=== PATIENT | male | born 1955 | race Asian ===

== ENCOUNTER → 2017-10-24 | Outpatient (CLI) | payer OTHER ==
[~2017-10-24] MED LIST: BECL0.072 INH; BNC20 PO; GADAVIST IV PRN; LEVO75TA PO; LYR/50 PO; MISO1TAB10 PO; SUMA100T16 PO; TAMS0.4C59 PO
--- NOTE | 2017-10-24 08:12 | DIAGNOSTIC IMAGING REPORT ---
MRI ABDOMEN COMBO CLINICAL HISTORY: ABD PAIN,WEIGHT LOSS TECHNIQUE: Imaging was performed prior to and following IV contrast injection. COMPARISON STUDY: CT scan dated 03/04/2015 FINDINGS: Imaging was performed in the axial and coronal planes before and after the administration of 6.5 cc of intravenous Gadavist. No hepatic masses are visualized. No gallbladder abnormalities are evident. The spleen is normal in size. No splenic masses are visualized. No pancreatic masses are visualized. No adrenal masses are visualized. No renal masses are visualized. There is no evidence of abdominal aortic dilatation. There is no evidence of pathologic upper abdominal lymphadenopathy. There is no ductal dilatation. IMPRESSION: Normal study. Electronically signed by: Angel Sun M.D. 10/24/2017 8:10 AM Dictated Date/Time: 10/24/2017 8:04 AM
== END | disposition home or self-care (01) ==
LOC: C.MRI 07:10
PROVIDERS: ATTEND Family Medicine
DX: R10.9 Unspecified abdominal pain (principal); R63.4 Abnormal weight loss

== ENCOUNTER → 2017-11-12 | Outpatient (CLI) | payer OTHER ==
[~2017-11-12] MED LIST changes: -GADAVIST IV PRN
--- NOTE | 2017-11-12 09:16 | DIAGNOSTIC IMAGING REPORT ---
ABDOMINAL AORTIC ULTRASOUND CLINICAL HISTORY: AORTIC BRUIT COMPARISON STUDY: Abdominal MRI 10/24/2017. FINDINGS: The abdominal aorta is normal in course and caliber. The proximal aorta measures 2.1 cm, mid aorta 1.8 cm, distal aorta 1.8 cm. Iliac arteries are normal in caliber. IMPRESSION: No evidence for an abdominal aortic aneurysm. Electronically signed by: Zelalem Urena M.D. 11/12/2017 9:15 AM Dictated Date/Time: 11/12/2017 9:13 AM
== END | disposition home or self-care (01) ==
LOC: C.ULTR 08:37
PROVIDERS: ATTEND Family Medicine
DX: R09.89 Other specified symptoms and signs involving the circulatory and respiratory systems (principal)

== ENCOUNTER 2022-06-07 06:42 | Observation (INO) ==
--- NOTE | 2022-05-23 10:50 | PAT Medication Instructions ---
Medication Instructions Date of Service May 23, 2022 Home Medications Medication Instructions Recorded fluticasone propionate 50 1 spray intranasal BID PRN allergy 03/07/21 mcg/actuation nasal symptoms 30 days #15.8 mL spray,suspension (Flonase Allergy Relief) Latisha Walker #1 ea 05/09/22 fluticasone propionate 50 mcg/actuation nasal spray,suspension (Flonase Allergy Relief) 1 spray intranasal BID PRN levothyroxine 75 mcg tablet (Synthroid) 75 mcg PO QAM pregabalin 50 mg capsule (Lyrica) 50 mg PO BID albuterol 90 mcg/actuation aerosol inhaler 90 mcg inhalation QID PRN Shortness Of Breath Or Wheezing beclomethasone dipropionate 40 mcg/actuation HFA breath activated aerosol (Qvar RediHaler) 1 inh inhalation Q12H PRN finasteride 5 mg tablet 5 mg PO QAM telmisartan 20 mg tablet 20 mg PO QAM DO NOT take the morning of surgery telmisartan 20 mg tablet 20 mg PO QAM Take morning of surgery With a small sip of water, OTHERWISE NOTHING TO EAT OR DRINK AFTER MIDNIGHT: fluticasone propionate 50 mcg/actuation nasal spray,suspension (Flonase Allergy Relief) 1 spray intranasal BID PRN (if needed) levothyroxine 75 mcg tablet (Synthroid) 75 mcg PO QAM pregabalin 50 mg capsule (Lyrica) 50 mg PO BID albuterol 90 mcg/actuation aerosol inhaler 90 mcg inhalation QID PRN Shortness Of Breath Or Wheezing (use if needed; please bring rescue inhaler with you to hospital day of surgery if possible) beclomethasone dipropionate 40 mcg/actuation HFA breath activated aerosol (Qvar RediHaler) 1 inh inhalation Q12H PRN (if needed) finasteride 5 mg tablet 5 mg PO QAM Take evening before surgery fluticasone propionate 50 mcg/actuation nasal spray,suspension (Flonase Allergy Relief) 1 spray intranasal BID PRN (if needed) pregabalin 50 mg capsule (Lyrica) 50 mg PO BID albuterol 90 mcg/actuation aerosol inhaler 90 mcg inhalation QID PRN Shortness Of Breath Or Wheezing (if needed) beclomethasone dipropionate 40 mcg/actuation HFA breath activated aerosol (Qvar RediHaler) 1 inh inhalation Q12H PRN (if needed) Other Notes If you have any questions please call us at [phone] or [phone] or [phone] or [phone]
--- NOTE | 2022-05-25 09:55 | Anesthesiology Consultation ---
Date of Service May 25, 2022 Assessment & Plan (1) Encounter for pre-operative examination: - rescue inhaler use yesterday and today with higher humidity days per pt. Lungs clear to auscultation. I will call pt prior to surgery to see if he is still requiring rescue inhaler daily. - COVID screening: Per assessment on 05/25/2022: Travel screen negative, no known COVID-19 positive contacts or current COVID-19 related symptoms in past 2 weeks. Pt vaccinated. Surgeon arranging preop COVID testing, scheduled 06/04/2022. Awaiting results. Chart Review Chart Review: Pending: Refer to Additional Notes / Consult section and Patient seen in Pre Admission Testing Teaching & Discussion Pre-Anesthesia Teaching/Discussion Notes: Instructed NPO after midnight before surgery, except medications with 15 cc of water. Medication instructions provided according to the PAT guidelines. History Surgery Operation Date: 06/06/22 07:15 Proposed Procedures p Left Total Knee Arthroplasty - Scott Avilez MD Height/Weight Height: 5 ft 8 in Weight: 61.4 kg Allergies Allergy/AdvReac Type Severity Reaction Status Date / Time oxycodone [From OxyContin] Allergy Mild Headache Verified 05/25/22 14:15 Medications Home Medications Medication Instructions Recorded Confirmed Last Taken fluticasone propionate 50 1 spray intranasal BID PRN allergy 03/07/21 05/25/22 Unknown mcg/actuation nasal symptoms 30 days #15.8 mL spray,suspension (Flonase Allergy Relief) levothyroxine 75 mcg tablet 75 mcg PO QAM 03/07/21 05/25/22 Unknown (Synthroid) pregabalin 50 mg capsule (Lyrica) 50 mg PO BID 03/07/21 05/25/22 Unknown Wheeled Walker #1 ea 05/09/22 05/25/22 Unknown albuterol 90 mcg/actuation aerosol 90 mcg inhalation QID PRN 05/22/22 05/25/22 Unknown inhaler Shortness Of Breath Or Wheezing beclomethasone dipropionate 40 1 inh inhalation Q12H PRN 05/22/22 05/25/22 Unknown mcg/actuation HFA breath activated Shortness Of Breath Or Wheezing aerosol (Qvar RediHaler) finasteride 5 mg tablet 5 mg PO QAM 05/22/22 05/25/22 Unknown telmisartan 20 mg tablet 20 mg PO QAM 05/22/22 05/25/22 Unknown Past Medical History Medical History (Updated 05/25/22 @ 10:12 by Camila Thurman PA-C) Asthma mild, well controlled w/ inhaler-last rescue inhaler use this morning as feels better with use during high humidity days GERD (gastroesophageal reflux disease) diet controlled per pt Hypertension controlled, stable per pt Hypothyroidism Pulsatile tinnitus, right ear Trigeminal neuralgia takes Lyrica Patient denies h/o stroke, seizures, heart attack, heart failure, DM, blood clots or blood transfusions. Exercise / Class Metabolic Activity II 4-5 Yardwork/Stairs/Walk up hill (denies CP or SOB with 1 FOS) Past Family History Family History Denies family history of Hearing loss No family history of adverse response to anesthesia No family history of bleeding disorder Heart disease Allergies Cancer Hypertension Stroke Asthma Past Surgical History Surgical History (Updated 05/25/22 @ 09:53 by Camila Thurman PA-C) H/O neck surgery fusion around C5 per pt 2008- done in [facility] History of esophagogastroduodenoscopy (EGD) S/P arthroscopic knee surgery left S/P colonoscopy S/P inguinal hernia repair S/P sinus surgery Past Anesthesia History No Hx of Anesthesia Complications and No Family Hx of Anesthesia Complications History of PONV No Hx of PONV and No Hx of Motion Sickness Social History Smoking Status: Never smoker Do You Dip or Chew Tobacco: No Hx Alcohol Use: Yes alcohol intake frequency: a few times a week Hx Substance Use: No substance use type: does not use Review of Systems Patient denies chest pain, dyspnea on exertion, snoring, witnessed apneas, fever, chills, cough, wheezing, or palpitations. Physical Exam Vital Signs Vitals BP 152/82 P 61 TEMP 98.3 SP02 99% on RA RESP 17 Physical Full cervical extension range of motion without pain TMD 3.5 finger breadths Mallampati Score 1 Dentition: intact, several crowns; pt unsure if any implants or bridges; denies chipped or loose teeth Lungs: normal respiratory effort. Clear throughout to auscultation, no adventitious breath sounds Cardiac: regular rate and rhythm, no murmurs noted Carotid arteries: negative bruit bilat Lab Results Anesthesia Preop Results Results Anesthesia Widget: WBC 4.55 K/ul (4.8-10.8) L 05/25/22 Hgb 13.3 g/dl (14.0-18.0) L 05/25/22 Hct 40.2 % (40.1-51.0) 05/25/22 Plt 182 K/uL (130-400) 05/25/22 Na 139 mmol/L (136-145) 05/25/22 K 4.3 mmol/L (3.5-5.1) 05/25/22 Cl 104 mmol/L (98-107) 05/25/22 CO2 30 mmol/L (21-32) 05/25/22 BUN 14 mg/dl (6-23) 05/25/22 Creat 0.91 mg/dl (0.6-1.4) 05/25/22 Glucose Level 98 mg/dl (70-99(Fasting)) 05/25/22 PT 11.3 Seconds (9.0-12.0) 05/25/22 PTT 29.9 Seconds (21.0-31.0) 05/25/22 INR 1.1 (0.9-1.1) 05/25/22 Blood Type B Positive 05/25/22 Antibody Screen NEGATIVE 05/25/22 Testing Electrocardiogram Date: 05/25/22 Sinus bradycardia with 1st degree AV block, rate 57 bpm Chest X-Ray Date: 05/25/22 No lines and tubes are seen. The cardiomediastinal silhouette is normal. The lungs are clear. No evidence of pleural effusion or pneumothorax. IMPRESSION: No acute chest disease.
[~2022-06-07 06:42] MED LIST changes: +ACETAMINOPHEN 500 MG TAB PO SCH; -BECL0.072 INH; -BNC20 PO; +BUPIVACAINE 0.25% 30 ML VIAL ONE; +BUPIVACAINE 0.5 % 5 MG/1 ML PF 10ML VIAL ONE; +BUPIVACAINE LIPOSOME/PF 266 MG, BUPIVACAINE/EPINEPHRINE 50 ML, SODIUM CHLORIDE 0.9% 30 ... INFIL SCH; +CeleBREX 200 MG CAP PO SCH; +DEXAMETHASONE SOD INJ 4 MG/ML VIAL ONE; +EPINEPHrine INJ 1 MG/ML AMP ONE; +FAMOTIDINE 20 MG TAB PO SCH; -LEVO75TA PO; +LR 500ML BOLUS, THEN 15ML/HR IV SCH; +LR 60ML/HR IV SCH; -LYR/50 PO; +METOCLOPRAMIDE HCL 10 MG TABLET PO SCH; -MISO1TAB10 PO; -SUMA100T16 PO; +Scopolamine 1 MG TDSY TD SCH; +Scopolamine CHECK PATCH PLACEMENT SCH; -TAMS0.4C59 PO; +TRANEXAMIC ACID 1,000 MG **IV Intra-op IV SCH; +ceFAZolin 2000MG 2,000 MG/15 ML SYR IV SCH
--- NOTE | 2022-06-07 06:57 | History & Physical Bridge Note ---
Date of Service June 07, 2022 History & Physical Bridge Note I have examined the patient, reviewed the History & Physical and in the interval since the performance of the History & Physical I have noted the following changes of clinical significance: no changes noted
[2022-06-07] MEDS ORDERED: fentaNYL citrate 100 MCG/2 ML VIAL ONE (07:23)
[2022-06-07] MEDS ORDERED: MIDAZOLAM HCL 1 MG/ML 2ML VIAL ONE (07:23)
[2022-06-07] MEDS ORDERED: PROPOFOL IV EMULSION 10 MG/ML 20 ML VIAL IV ONE ×3 (07:23→09:47)
[2022-06-07] MEDS ORDERED: SODIUM CHLORIDE 0.9% PF 50 ML VIAL ONE (08:57)
[2022-06-07] MEDS ORDERED: BUPIVACAINE/EPINEPHRINE 0.25% 1:200,000 30 ML VIAL ONE (08:57)
[2022-06-07] MEDS ORDERED: BUPIVACAINE LIPOSOME 1.3% 266 MG/20 ML VIAL ONE (08:57)
[2022-06-07] MEDS ORDERED: ePHEDrine sulfate 50 MG/ML SYR ONE (09:39)
[2022-06-07] MEDS ORDERED: fentaNYL citrate 100 MCG/2 ML VIAL IV PRN (09:45)
[2022-06-07] MEDS ORDERED: ONDANSETRON INJ 2 MG/ML 2 ML VIAL IV PRN ×2 (09:45→12:35)
[2022-06-07] MEDS ORDERED: ePHEDrine sulfate 50 MG/ML AMP IV PRN (09:45)
[2022-06-07] MEDS ORDERED: ATROPINE SULFATE 0.1 MG/ML 10ML SYR IV PRN (09:45)
[2022-06-07] MEDS ORDERED: KETOROLAC 30 MG/ML VIAL ONE (11:00)
--- NOTE | 2022-06-07 11:17 | Operative Report ---
PG Post Operative Report Pre & Post Diagnosis Operation Date: 06/07/22 09:10 Pre-Op Diagnosis: Left Knee Advanced Degenerative Joint Disease Post-Op Diagnosis: Left Knee Advanced Degenerative Joint Disease I identified the patient and participated in the time-out.: Yes Procedure Operation Date: 06/07/22 09:10 Actual Procedures p Left Total Knee Arthroplasty(Left) - Scott Avilez MD Surgeon Scott Avilez MD Band Salvager Reagan Lyon PA-C Estimated Blood Loss 50 Findings Consistent with Post-Op Diagnosis Operative findings were advanced left knee DJD. 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 A fixed varus deformity to his knee. Tibiofemoral subluxation. Chronic ACL deficiency. Specimens Left knee sent for pathology. Drains None Anesthesia Type Spinal MAC Complications none Disposition Accompanied Patient To Recovery: No Indications Patient is a 67-year-old gentleman with a long history of left knee pain discomfort is gotten worse over time. He has a history of knee arthroscopy done in 1998. Over time he developed increased pain discomfort and deformity of his knee. He failed conservative measures and elected proceed with total knee arthroplasty. Description of Procedure Operative implants consist of: 1 Biomet Vanguard size 65 left posterior stabilized femoral component. 2. Biomet size 71 tibial tray. 3. 10 mm posterior stabilized polyethylene insert. 4. 31 x 8 all Paller patella. The patient was taken to the operating, identified, placed on the operating table supine position protectors were properly padded. IV antibiotics tried by anesthesia team. A spinal anesthetic and abductor canal block in the holding area. Allan catheter was placed in sterile fashion. Left factor was then placed in left lower extremities and prepped and draped in usual sterile fashion. The left leg was elevated exsanguinated with the use of an Esmarch in terms playset 3 mmHg. An anterior posterior left knee was then performed to longitudinal incision centered over the patella. Sharp dissection was carried through subcutaneous tissue down the extensor mechanism. A medial parapatellar arthrotomy incision was made. Some subperiosteal dissection was carried out medially. The fat pad was resected from Neath patella tendon. The lateral patellofemoral ligament was released. Patella subluxated laterally and the knee was flexed. The osteophyte taken off distal femur. The ACL and PCL were then released from distal femur and the tibia subluxated anteriorly. The external treatment line jig was then placed in the anterior face of the tibia and adjusted 16 mm medially. Proximal tibial cut was made essentially flush with the most deficient aspect of the posterior medial tibial plateau. The medial and posterior medial osteophytes removed. The tibia sized to a size 71. Attention drawn the femur. The distal femur during the sharp drop with intramedullary canal was suction. A left 6 degree valgus cutting guide was placed. The distal femoral cutting block was pinned in place. Distal femoral cut was made to take an additional 3 mm of bone off distal femur. The femur was then sized to a size 65. The AP cutting block was pinned parallel to the epicondylar axis which was 6 degrees of external rotation. The anterior cut, anterior chamfer, posterior cut, posterior chamfer cuts were made. The box cutting guide was placed in just slight the box cut was made. The knee was flexed. The remnants of the medial and lateral menisci were excised. The osteophytes were taken off the posterior aspect of femur. A trial femoral component was placed. Tibial tray was pinned in maximum external rotation and the drill and stem punch were used to create defect in proximal tibia for the tibial tray. The knee was then trialed and the 10 mm insert fit most appropriately. Attention drawn the patella. The patella was cleaned of all soft tissues. Patella thickness measured 23 mm in thickness and was cut down to 14. Was sized to a size 31 patella. The lug holes were drilled for the 31 patella. The lateral osteophyte was removed. Patella button was placed. Knee was taken through range of motion and the patella tracked nicely with no thumbs test. Attention drawn to place the permanent components. Nupathe all trial components were removed. Bone plug was placed into the distal femur limit blood loss. A double batch Palacos G cement was mixed. A Biomet Vanguard size 65 left posterior stabilized femoral compo nent, size 71 tibial tray, 10 mm posterior stabilized polyethylene insert, and a 31 x 8 all Paller patella then cemented in place. Knee was brought out into full extension total cement hardened. Final cement check was then performed. Pericapsular tissues were injected with total 100 cc of combination of 20 cc of Exparel, 30 cc normal saline, 50 cc of quarter percent Marcaine with epinephrine. Patient did receive 1 g of tranexamic acid. The tourniquet was then let down for final turn time of 61 minutes. Hemostasis surgeons electrocautery. Extensor mechanism then closed with combination 1 PDS suture #1 Vicryl suture in [id number] fashion. Extensor mechanism checked found to be intact with subcutaneous tissue then closed with 2 Dexon suture in a buried erupted fashion skin was closed skin mark. Leg was then cleaned and dried and sterile dressed with Xeroform, 4 x 4's, sterile cast padding, Suhail bandage were applied. Patient then transferred to the recovery room in stable condition. The patient tolerated the procedure well and there were no complications. Reagan Lyon, my physician purchasing administrative assistant, was present for the entire procedure. His assistance was essential and required for appropriate patient positioning, prepping and draping, surgical exposure, performing the technical details of the operation, placement the implants, closure of the wound, and placement of the sterile bandage. I attest to the content of the Intraoperative Record and any orders documented therein. Any exceptions are noted below.
--- NOTE | 2022-06-07 11:35 | XRay Report ---
LEFT KNEE 2 VIEWS History: Left total knee arthroplasty. Degenerative arthritis. Postop. FINDINGS: The patient is status post a left total knee arthroplasty. The hardware is intact. No fract ure or dislocation. Skin mark are in place. IMPRESSION: Left total knee arthroplasty. No evidence for hardware complication. ACT 112: Negative or not required by law. Electronically signed by: Zelalem Urena M.D. 06/07/2022 11:33 AM
[2022-06-07] MEDS ORDERED: bisacodyL 10 MG SUPP PR PRN (12:35)
[2022-06-07] MEDS ORDERED: FLUTICASONE PROPIONATE NA SPR 16 GM BTL NAE PRN (12:35)
[2022-06-07] MEDS ORDERED: MAGNESIUM HYDROXIDE SUSP 30 ML UDC PO PRN (12:35)
[2022-06-07] MEDS ORDERED: HYDROmorphone INJ 0.5 MG/0.5 ML SYR IV PRN (12:35)
[2022-06-07] MEDS ORDERED: ALUMINUM/MAGNESIUM SUSP 30 ML UDC PO PRN (12:35)
[2022-06-07] MEDS ORDERED: HYDROmorphone HCL 2 MG TAB PO PRN (12:35)
[2022-06-07] MEDS ORDERED: NALOXONE HCL 0.4 MG/1 ML VIAL/CARP IV PRN (12:35)
[2022-06-07] MEDS ORDERED: METOCLOPRAMIDE HCL INJ 5 MG/ML 2 ML VIAL IV PRN (12:35)
[2022-06-07] MEDS ORDERED: ALBUTEROL HFA 8 GM INHALER INH PRN (12:48)
--- NOTE | 2022-06-07 13:13 | Anesthesiology Progress Note ---
Date of Service June 07, 2022 Anesthesia Post Procedure Vital Signs Vital Signs: Temp Pulse Resp BP Pulse Ox O2 Del Method O2 Flow Rate 06/07/22 13:00 47 L 13 115/63 99 Room Air 06/07/22 12:45 47 L 15 117/64 98 Room Air 06/07/22 12:30 45 L 20 116/61 99 Room Air 06/07/22 12:20 48 L 16 117/63 99 Room Air 06/07/22 12:10 36.3 C L 48 L 14 120/62 98 Room Air 06/07/22 12:00 52 L 20 122/68 98 Room Air 06/07/22 11:50 54 L 12 114/58 L 100 Room Air 06/07/22 11:40 54 L 13 116/64 100 Oxymask 3 06/07/22 11:30 53 L 15 112/66 100 Oxymask 3 06/07/22 11:20 53 L 14 117/61 100 Oxymask 4 06/07/22 11:10 36.0 C L 56 L 14 113/61 100 Oxymask 5 06/07/22 07:17 36.8 C 63 22 144/95 H 99 Room Air Pain Intensity Left Knee: Pain Intensity: 0 Transfer of Care Handoff Completed per policy Notes Mental Status: alert / awake / arousable Patient Amnestic to Procedure: Yes Nausea / Vomiting: adequately controlled Pain: adequately controlled Airway Patency, RR, SpO2: stable & adequate BP & HR: stable & adequate Hydration State: stable & adequate Neuraxial Anesthesia: was administered and sensory block is resolving Anesthetic Complications: no major complications apparent and Pt Satisfied with anesthetic care
[2022-06-07] MEDS: Scopolamine CHECK PATCH PLACEMENT SCH ×3 (16:02→21:33)
[2022-06-07] MEDS: SODIUM CHLORIDE 0.9% 1000ML 1,000 ML IV SCH (16:05)
[2022-06-07] MEDS ORDERED: TRANEXAMIC ACID / 0.7% NACL 1,000 MG/100 ML BAG IV SCH (17:30)
[2022-06-07] MEDS: ACETAMINOPHEN 500 MG TAB PO SCH ×2 (17:45→23:59)
[2022-06-07] MEDS: ASCORBIC ACID 500 MG TAB PO SCH (17:47)
[2022-06-07] MEDS: KETOROLAC TROMETHAMINE 15 MG/ML VIAL IV SCH (17:48)
[2022-06-07] MEDS: ceFAZolin 1000MG 1,000 MG/7.5 ML SYR IV SCH (18:27)
[2022-06-07] MEDS ORDERED: SENNA 8.6 MG TAB PO SCH (21:00)
[2022-06-07] MEDS: ASPIRIN 81 MG ECTAB PO SCH (21:28)
[2022-06-07] MEDS: DOCUSATE SODIUM 100 MG CAP PO SCH (21:28)
[2022-06-07] MEDS: DOCUSATE SODIUM/SENNA 50/8.6MG TAB PO SCH (21:28)
[2022-06-07] MEDS: PREGABALIN 50 MG CAP PO SCH (21:29)
[2022-06-07] MEDS: TAPENTADOL HCL ER 50 MG TABCR PO SCH (21:29)
[2022-06-08] MEDS: KETOROLAC TROMETHAMINE 15 MG/ML VIAL IV SCH ×3 (00:01→11:56)
[2022-06-08] MEDS: ceFAZolin 1000MG 1,000 MG/7.5 ML SYR IV SCH (01:46)
[2022-06-08] MEDS: SODIUM CHLORIDE 0.9% 1000ML 1,000 ML IV SCH (02:51)
[2022-06-08] MEDS ORDERED: LEVOTHYROXINE SODIUM 75 MCG TABLET PO SCH (06:30)
[2022-06-08 07:14] LABS: Hematocrit (blood only) 34.3 % (40.1-51.0); Hemoglobin 11.3 g/dl (14.0-18.0); Mean Corpuscular Hemoglobin 28.9 pg (25.0-34.0); Mean Corpuscular Hgb Conc 32.9 g/dL (32.0-36.0); Mean Corpuscular Volume 87.7 fL (80.0-100.0); RDW Coefficient of Variation 13.2 % (11.5-14.5); RDW Standard Deviation 42.1 fL (36.4-46.3); Red Blood Count 3.91 M/uL (4.63-6.08); White Blood Count 13.61 K/ul (4.8-10.8)
[2022-06-08 07:32] VITALS: BP 114/69; TEMP 97.7; O2SAT 100
[2022-06-08 07:44] LABS: Calcium 8.7 mg/dl (8.5-10.1); Creatinine Clr Calc Pharmacy 72.5 ml/min; Est GFR (African American) 104.7 ml/min; Est GFR (Non-African American) 90.4 ml/min; Potassium 3.9 mmol/L (3.5-5.1)
[2022-06-08 07:58] LABS: Mean Platelet Volume 13.1 fL (9.4-12.4); Platelet Count 152 K/uL (130-400)
--- NOTE | 2022-06-08 07:59 | Progress Notes ---
DATE OF SERVICE: 06/08/2022. SUBJECTIVE: A 67-year-old gentleman, postoperative day 1 from a left knee replacement. He is doing pretty well. He has got a lot of questions. Really had a pretty good night pain melgar. No chest elodia n or shortness of breath. Not feeling dizzy or lightheaded. OBJECTIVE: VITAL SIGNS: Temperature 36.6. Vital signs are stable. PHYSICAL EXAMINATION: GENERAL: Shows a pleasant middle-aged male. He is sitting up in bed, looks pretty comfortable. LUNGS: Clear to auscultation. HEART: Regular rate and rhythm. ABDOMEN: Soft, nontender, nondistended. EXTREMITIES: Grossly neurovascularly intact except as follows: Examination of the left leg reveals the leg to be well aligned. Dressing is clean, dry and intact. He can dorsiflex and plantarflex his foot appropriately. He is neurologically intact. LABORATORY DATA: Hemoglobin 11.3. Hematocrit 34.3. White cell count 13.61. Electrolytes are pendi ng. ASSESSMENT: A 67-year-old gentleman, postoperative day 1 from left knee replacement, doing pretty we ll. Pain is controlled. I answered a bunch of questions from this morning. PLAN: 1. DVT prophylaxis includes thigh-high TEDs, SCDs, and aspirin twice a day. 2. PT, OT, weightbear as tolerated. Left total knee protocol. 3. Pain control, doing okay with current pain regimen. Will continue using Dilaudid, Tylenol and tr amadol. 4. Disposition: Plan to discharge to home with some home health once adequately recovered and medic ally stable. Job ID: [id number]
[2022-06-08] MEDS ORDERED: dexAMETHasone 10 MG in SYRINGE 0 ML IV SCH (08:00)
[2022-06-08] MEDS: ASPIRIN 81 MG ECTAB PO SCH (08:06)
[2022-06-08] MEDS: ACETAMINOPHEN 500 MG TAB PO SCH (08:07)
[2022-06-08] MEDS: ASCORBIC ACID 500 MG TAB PO SCH (08:07)
[2022-06-08] MEDS: DOCUSATE SODIUM/SENNA 50/8.6MG TAB PO SCH (08:08)
[2022-06-08] MEDS: Scopolamine CHECK PATCH PLACEMENT SCH (08:08)
[2022-06-08] MEDS: DOCUSATE SODIUM 100 MG CAP PO SCH (08:08)
[2022-06-08] MEDS: PREGABALIN 50 MG CAP PO SCH (08:10)
[2022-06-08] MEDS: TAPENTADOL HCL ER 50 MG TABCR PO SCH (08:11)
[2022-06-08] MEDS ORDERED: TAMSULOSIN HCL 0.4 MG CAP PO SCH (09:00)
[2022-06-08] MEDS ORDERED: TELMISARTAN 20 MG TAB PO SCH (09:00)
[2022-06-08] MEDS ORDERED: MULTIVITAMIN TAB PO SCH (09:00)
[2022-06-08] MEDS ORDERED: MONTELUKAST SODIUM 10 MG TABLET PO SCH (09:00)
[2022-06-08] MEDS ORDERED: FLUTICASONE FUROATE 100MCG 14 PUFFS/INHALER INH PRN (09:00)
[2022-06-08] MEDS ORDERED: FINASTERIDE 5 MG TAB PO SCH (09:00)
[2022-06-08 11:59] VITALS: PULSE 53
== END 2022-06-08 15:49 | disposition home health service (06) ==
LOC: ASU 06:42 → PACUINP 06:42 → 3E 15:43
DX: Z79.899 Other long term (current) drug therapy; Z79.82 Long term (current) use of aspirin; Z88.5 Allergy status to narcotic agent; M17.12 Unilateral primary osteoarthritis, left knee

== ENCOUNTER 2025-02-02 06:29 | Inpatient (IN) ==
--- NOTE | 2025-01-13 14:10 | PAT Medication Instructions ---
Medication Instructions Date of Service January 13, 2025 Home Medications Medication Instructions Recorded fluticasone propionate 50 1 spray intranasal BID PRN allergy 03/07/21 mcg/actuation nasal symptoms 30 days #15.8 mL spray,suspension (Flonase Allergy Relief) albuterol sulfate 90 mcg/actuation 1 inh inhalation QID PRN shortness 09/02/23 aerosol inhaler of breath or wheezing #8.5 grams sumatriptan succinate 100 mg tablet 100 mg PO .twice daily PRN 12/02/23 migraine headache #10 tabs finasteride 5 mg tablet (Proscar) 5 mg PO QAM #90 tabs 02/01/24 beclomethasone dipropionate 40 1 inh inhalation Q12H PRN 03/11/24 mcg/actuation HFA breath activated Shortness Of Breath Or Wheezing #1 aerosol (Qvar RediHaler) inhaler pregabalin 50 mg capsule (Lyrica) 50 mg PO BID #90 caps 09/17/24 lorazepam 0.5 mg tablet 0.5 mg PO HS PRN sleep #30 tabs 09/28/24 levothyroxine 75 mcg tablet 75 mcg PO QAM #90 tabs 12/29/24 (Synthroid) fluticasone propionate 50 mcg/actuation nasal spray,suspension (Flonase Allergy Relief) 1 spray intranasal BID PRN allergy symptoms albuterol sulfate 90 mcg/actuation aerosol inhaler 1 inh inhalation QID PRN shortness of breath or wheezing sumatriptan succinate 100 mg tablet 100 mg PO .twice daily PRN migraine headache finasteride 5 mg tablet (Proscar) 5 mg PO QAM beclomethasone dipropionate 40 mcg/actuation HFA breath activated aerosol (Qvar RediHaler) 1 inh inhalation Q12H PRN Shortness Of Breath Or Wheezing albuterol sulfate 2.5 mg/3 mL (0.083 %) solution for nebulization 2.5 mg inhalation Q6H PRN SOB pregabalin 50 mg capsule (Lyrica) 50 mg PO BID lorazepam 0.5 mg tablet 0.5 mg PO HS PRN sleep aspirin 81 mg tablet,delayed release (Adult Low Dose Aspirin) 81 mg PO QPM telmisartan 20 mg tablet (Micardis) 10 mg PO QAM levothyroxine 75 mcg tablet (Synthroid) 75 mcg PO QAM multivitamin 1 tab PO QAM pantoprazole 40 mg tablet,delayed release 40 mg PO UD Continue as directed pantoprazole 40 mg tablet,delayed release 40 mg PO UD (if you restart taking prior to surgery) ASK your prescriber and surgeon aspirin 81 mg tablet,delayed release (Adult Low Dose Aspirin) 81 mg PO QPM DO NOT take the morning of surgery telmisartan 20 mg tablet (Micardis) 10 mg PO QAM multivitamin 1 tab PO QAM Take morning of surgery With a small sip of water, OTHERWISE NOTHING TO EAT OR DRINK AFTER MIDNIGHT: fluticasone propionate 50 mcg/actuation nasal spray,suspension (Flonase Allergy Relief) 1 spray intranasal BID PRN allergy symptoms (if needed) albuterol sulfate 90 mcg/actuation aerosol inhaler 1 inh inhalation QID PRN shortness of breath or wheezing (use if needed; please bring with you to hospital day of surgery if possible) sumatriptan succinate 100 mg tablet 100 mg PO .twice daily PRN migraine headache (if needed) finasteride 5 mg tablet (Proscar) 5 mg PO QAM beclomethasone dipropionate 40 mcg/actuation HFA breath activated aerosol (Qvar RediHaler) 1 inh inhalation Q12H PRN Shortness Of Breath Or Wheezing (if needed) albuterol sulfate 2.5 mg/3 mL (0.083 %) solution for nebulization 2.5 mg inhalation Q6H PRN SOB (if needed) pregabalin 50 mg capsule (Lyrica) 50 mg PO BID levothyroxine 75 mcg tablet (Synthroid) 75 mcg PO QAM Take evening before surgery fluticasone propionate 50 mcg/actuation nasal spray,suspension (Flonase Allergy Relief) 1 spray intranasal BID PRN allergy symptoms (if needed) albuterol sulfate 90 mcg/actuation aerosol inhaler 1 inh inhalation QID PRN shortness of breath or wheezing (if needed) sumatriptan succinate 100 mg tablet 100 mg PO .twice daily PRN migraine headache (if needed) beclomethasone dipropionate 40 mcg/actuation HFA breath activated aerosol (Qvar RediHaler) 1 inh inhalation Q12H PRN Shortness Of Breath Or Wheezing (if needed) albuterol sulfate 2.5 mg/3 mL (0.083 %) solution for nebulization 2.5 mg inhalation Q6H PRN SOB (if needed) pregabalin 50 mg capsule (Lyrica) 50 mg PO BID lorazepam 0.5 mg tablet 0.5 mg PO HS PRN sleep (if needed) Other Notes If you have any questions please call us at [phone] or [phone] or [phone] or [phone]
--- NOTE | 2025-01-20 11:07 | Anesthesiology Consultation ---
Date of Service January 20, 2025 Assessment & Plan (1) Encounter for pre-operative examination: - Infectious disease screening: Per assessment on 01/20/25- No known recent infectious disease contacts or current infectious disease symptoms. - PCP visit (01/19/25): "Cervical disc disease.. He has an acceptable risk for the planned spinal surgery.. Abdominal bruit.. There is no evidence of a aortic aneurysm based on an ultrasound done on 10/08/2024" Chart Review Chart Review: Acceptable Risk for Surgery and Patient seen in Pre Admission Testing Teaching & Discussion Pre-Anesthesia Teaching/Discussion Notes: Instructed NPO after midnight before surgery,except medications with 15 cc of water. Medication instructions provid ed according to the PAT guidelines. History Surgery Operation Date: 02/02/25 10:35 Proposed Procedures p C5-T3 Posterior Decompression and Fusion Spinal Cord Monitoring - Ian Reyes, Height/Weight Height: 5 ft 8 in Weight: 61.1 kg Allergies Allergy/AdvReac Type Severity Reaction Status Date / Time oxycodone [From OxyContin] AdvReac Mild Headache Verified 01/19/25 11:31 Medications Home Medications Medication Instructions Recorded Confirmed Last Taken fluticasone propionate 50 1 spray intranasal BID PRN allergy 03/07/21 01/19/25 06/07/22 05:00 mcg/actuation nasal symptoms 30 days #15.8 mL spray,suspension (Flonase Allergy Relief) albuterol sulfate 90 mcg/actuation 1 inh inhalation QID PRN shortness 09/02/23 01/19/25 Unknown aerosol inhaler of breath or wheezing #8.5 grams finasteride 5 mg tablet (Proscar) 5 mg PO QAM #90 tabs 02/01/24 01/19/25 Unknown beclomethasone dipropionate 40 1 inh inhalation Q12H PRN 03/11/24 01/19/25 Unknown mcg/actuation HFA breath activated Shortness Of Breath Or Wheezing #1 aerosol (Qvar RediHaler) inhaler albuterol sulfate 2.5 mg/3 mL 2.5 mg inhalation Q6H PRN SOB 03/13/24 01/19/25 Unknown (0.083 %) solution for nebulization pregabalin 50 mg capsule (Lyrica) 50 mg PO BID #90 caps 09/17/24 01/19/25 Unknown lorazepam 0.5 mg tablet 0.5 mg PO HS PRN sleep #30 tabs 09/28/24 01/19/25 Unknown aspirin 81 mg tablet,delayed 81 mg PO QPM 09/30/24 01/19/25 Unknown release (Adult Low Dose Aspirin) telmisartan 20 mg tablet (Micardis) 10 mg PO QAM 09/30/24 01/19/25 Unknown levothyroxine 75 mcg tablet 75 mcg PO QAM #90 tabs 12/29/24 01/19/25 Unknown (Synthroid) multivitamin 1 tab PO QAM 01/06/25 01/19/25 Unknown pantoprazole 40 mg tablet,delayed 40 mg PO UD 01/06/25 01/19/25 Unknown release azithromycin 250 mg tablet See Rx Instructions PO .COMPLEX #6 01/19/25 01/19/25 Unknown tabs sumatriptan succinate 100 mg tablet 100 mg PO .twice daily PRN 01/19/25 01/19/25 Unknown migraine headache #10 tabs Past Medical History Medical History Anemia Chronic Asthma Chronic sinusitis Per records GERD (gastroesophageal reflux disease) Hx History of BPH Hx of migraines Hypertension Hypothyroidism Seizure Per remote records (entered 2020 without further details) Patient denies Trigeminal neuralgia Takes Lyrica Exercise / Class Metabolic Activity II 4-5 Yardwork/Stairs/Walk up hill (one FS: No CP, no SOB) Past Family History Family History Father Myocardial infarction Parkinson disease Mother Hypertension Denies family history of Hearing loss No family history of adverse response to anesthesia No family history of bleeding disorder Heart disease Allergies Cancer Stroke Asthma Past Surgical History Surgical History H/O neck surgery ~C5 fusion (2008) History of esophagogastroduodenoscopy (EGD) History of left knee replacement (2021) S/P arthroscopic knee surgery left S/P colonoscopy S/P inguinal hernia repair S/P sinus surgery Past Anesthesia History No Hx of Anesthesia Complications and No Family Hx of Anesthesia Complications History of PONV No Hx of PONV and No Hx of Motion Sickness Social History Smoking Status: Never smoker Do You Dip or Chew Tobacco: No Hx Alcohol Use: Yes alcohol intake frequency: holidays/special occasions only Hx Substance Use: No substance use type: does not use Review of Systems Patient denies chest pain, shortness of breath, dyspnea on exertion, fever, chills, cough, wheezing, palpitations. Physical Exam Vital Signs BP 123/70 P 60 TEMP 97.6 SP02 98%RA RESP 16 Physical Full cervical extension range of motion. Full TMJ range of motion. TMD 3 finger breaths Mallampati Score I Dentition: intact, + crowns Lungs: clear throughout to auscultation Cardiac: regular rate and rhythm, no murmurs noted Spine: normal Carotid arteries: negative bruit Extremities: no LE edema Lab Results Anesthesia Preop Results Results Anesthesia Widget: WBC 8.50 K/ul (4.8-10.8) 01/20/25 Hgb 12.7 g/dl (14.0-18.0) L 01/20/25 Hct 39.3 % (42.0-52.0) L 01/20/25 Plt 186 K/uL (130-400) 01/20/25 Na 139 mmol/L (136-145) 01/20/25 K 4.1 mmol/L (3.5-5.1) 01/20/25 Cl 103 mmol/L (98-107) 01/20/25 CO2 33 mmol/L (21-32) H 01/20/25 BUN 17 mg/dl (6-23) 01/20/25 Creat 0.87 mg/dl (0.6-1.4) 01/20/25 Glucose Level 72 mg/dl (70-99(Fasting)) 01/20/25 PT 11.0 Seconds (9.0-12.0) 01/20/25 PTT 31 Seconds (21-31) 01/20/25 INR 1.0 (0.9-1.1) 01/20/25 Urine Color Yellow 01/20/25 Urine Appearance Cloudy (Clear) A 01/20/25 Urine pH 7.0 (4.5-7.5) 01/20/25 Urine Specific [place] 1.018 (1.000-1.030) 01/20/25 Urine Protein Negative (Negative) 01/20/25 Urine Glucose (UA) Negative (Negative) 01/20/25 Urine Ketones Trace (Negative) H 01/20/25 Urine Blood Negative (Negative) 01/20/25 Urine Nitrite Negative (Negative) 01/20/25 Urine Bilirubin Negative (Negative) 01/20/25 Urine Urobilinogen Negative (Negative) 01/20/25 Urine Leukocyte Esterase Negative (Negative) 01/20/25 Urine WBC (Auto) 0-5 /hpf (0-5) 01/20/25 Urine RBC (Auto) 6-10 /hpf (0-2) H 01/20/25 Urine Hyaline Casts (Auto) 0-2 /lpf (0-2) 01/20/25 Urine Epithelial Cells (Auto) 0-2 /hpf (0-2) 01/20/25 Urine Bacteria (Auto) None Seen (None Seen) 01/20/25 Blood Type B Positive 01/20/25 Antibody Screen NEGATIVE 01/20/25 Testing Laboratory Results Chronic anemia- stable Electrocardiogram Date: 01/20/25 SB with first degree AVB at 58bpm. "Otherwise normal ECG" Chest X-Ray Date: 01/20/25 FINDINGS: Heart size and pulmonary vasculature are normal. No effusion or consolidation. IMPRESSION: No acute findings.
[2025-02-02] MEDS: LR 60ML/HR IV SCH (07:06)
[2025-02-02] MEDS: LR 15ML/HR IV SCH (07:06)
[2025-02-02] MEDS ORDERED: MIDAZOLAM HCL 1 MG/ML 2ML VIAL ONE (07:07)
[2025-02-02] MEDS ORDERED: DEXAMETHASONE SOD INJ 4 MG/ML VIAL ONE (07:07)
[2025-02-02] MEDS ORDERED: ROCURONIUM BROMIDE 10 MG/ML 5 ML VIAL IV ONE (07:07)
[2025-02-02] MEDS ORDERED: ONDANSETRON INJ 2 MG/ML 2 ML VIAL ONE (07:07)
[2025-02-02] MEDS ORDERED: LIDOCAINE 2% 2 ML VIAL/AMP(20MG/ML) INFIL ONE (07:07)
[2025-02-02] MEDS ORDERED: PROPOFOL IV EMULSION 10 MG/ML 20 ML VIAL IV ONE (07:07)
[2025-02-02] MEDS ORDERED: fentaNYL citrate PF 100 MCG/2 ML VIAL ONE (07:08)
[2025-02-02] MEDS ORDERED: KETAMINE HCL 10MG/ML SYR ONE (07:08)
[2025-02-02] MEDS: GABAPENTIN 300 MG CAP PO SCH (07:09)
[2025-02-02] MEDS: CeleBREX 200 MG CAP PO SCH (07:09)
[2025-02-02] MEDS: ACETAMINOPHEN 500 MG TAB PO SCH (07:09)
[2025-02-02] MEDS ORDERED: SUGAMMADEX SODIUM 200 MG/2 ML VIAL IV ONE (07:12)
[2025-02-02] MEDS ORDERED: ATROPINE SULFATE 0.1 MG/ML 10ML SYR IV PRN (07:16)
[2025-02-02] MEDS ORDERED: ePHEDrine sulfate 50 MG/ML AMP IV PRN (07:16)
[2025-02-02] MEDS ORDERED: PROMETHAZINE HCL 6.25 MG in SODIUM CHLORIDE 0.9% 50 ML IV PRN (07:16)
--- NOTE | 2025-02-02 07:37 | History & Physical Bridge Note ---
Date of Service February 02, 2025 History & Physical Bridge Note I have examined the patient, reviewed the History & Physical and in the interval since the performance of the History & Physical I have noted the following changes of clinical significance: no changes noted
--- NOTE | 2025-02-02 07:38 | History & Physical Report ---
Date of Service February 02, 2025 Assessment & Plan (1) Cervical spondylosis with radiculopathy: Plan: C5-T3 posterior cervical decompression and fusion History of Present Illness Chief Complaint: Neck and arm pain Primary Care Provider: Conrado Connell MD This is a 61-year-old male presents for persistent neck and arm pain and failing course of nonoperative care is here for surgical invention. Allergies Allergy/AdvReac Type Severity Reaction Status Date / Time oxycodone [From OxyContin] AdvReac Mild Headache Verified 02/02/25 06:41 Home Medications Medication Instructions Recorded Confirmed Type fluticasone propionate 50 1 spray intranasal BID PRN allergy 03/07/21 02/02/25 Rx mcg/actuation nasal symptoms 30 days #15.8 mL spray,suspension (Flonase Allergy Relief) albuterol sulfate 90 mcg/actuation 1 inh inhalation QID PRN shortness 09/02/23 02/02/25 Rx aerosol inhaler of breath or wheezing #8.5 grams finasteride 5 mg tablet (Proscar) 5 mg PO QAM #90 tabs 02/01/24 02/02/25 Rx beclomethasone dipropionate 40 1 inh inhalation Q12H PRN 03/11/24 02/02/25 Rx mcg/actuation HFA breath activated Shortness Of Breath Or Wheezing #1 aerosol (Qvar RediHaler) inhaler albuterol sulfate 2.5 mg/3 mL 2.5 mg inhalation Q6H PRN SOB 03/13/24 02/02/25 History (0.083 %) solution for nebulization pregabalin 50 mg capsule (Lyrica) 50 mg PO BID #90 caps 09/17/24 02/02/25 Rx lorazepam 0.5 mg tablet 0.5 mg PO HS PRN sleep #30 tabs 09/28/24 02/02/25 Rx aspirin 81 mg tablet,delayed 81 mg PO QPM 09/30/24 02/02/25 History release (Adult Low Dose Aspirin) telmisartan 20 mg tablet (Micardis) 10 mg PO QAM 09/30/24 02/02/25 History levothyroxine 75 mcg tablet 75 mcg PO QAM #90 tabs 12/29/24 02/02/25 Rx (Synthroid) multivitamin 1 tab PO QAM 01/06/25 02/02/25 History pantoprazole 40 mg tablet,delayed 40 mg PO UD 01/06/25 02/02/25 History release sumatriptan succinate 100 mg tablet 100 mg PO .twice daily PRN 01/19/25 02/02/25 Rx migraine headache #10 tabs Past Med/Surg History Problem List (Updated 02/02/25 @ 07:37 by Ian Reyes DO) Cervical spondylosis with radiculopathy Elevated lipoprotein(a) Cervical disc disease Abdominal bruit Aorta ultrasound 10/08/24: No evidence of abdominal aortic aneurysm Cervical plexus neuropathy Atopic dermatitis Sinusitis Right knee DJD Lateral epicondylitis of left elbow Anemia GERD (gastroesophageal reflux disease) Migraine Benign prostatic disease Post-traumatic osteoarthritis of left knee Encounter for pre-operative examination Hypothyroidism Asthma Trigeminal neuralgia Pulsatile tinnitus, right ear Sensorineural hearing loss of both ears HTN (hypertension) (Chronic) Medical History Anemia Chronic Asthma Chronic sinusitis Per records GERD (gastroesophageal reflux disease) Hx History of BPH Hx of migraines Hypertension Hypothyroidism Seizure Per remote records (entered 2020 without further details) Patient denies Trigeminal neuralgia Takes Lyrica Surgical History History of left knee replacement (2021) History of esophagogastroduodenoscopy (EGD) S/P colonoscopy S/P sinus surgery S/P inguinal hernia repair S/P arthroscopic knee surgery left H/O neck surgery ~C5 fusion (2008) Family History Father Myocardial infarction Parkinson disease Mother Hypertension Denies family history of Hearing loss No family history of adverse response to anesthesia No family history of bleeding disorder Heart disease Allergies Cancer Stroke Asthma Social History Smoking Status: Never smoker Second Hand Exposure: No; Do You Dip or Chew Tobacco: No; Tobacco Cessation Education Requested by Patient: No Hx Alcohol Use: Yes Alcohol Intake Frequency: 2-3 x/Week Hx Substance Use: No Preferred Language: Macedonian Communication Ability: Effective Visual Impairment: Limited Hearing Ability: Normal Maintainer Operator Required: No Beliefs That Will Affect Care: None marital status: Current Living Situation: Spouse current occupational status: retired Other Information That Helps Us Care for You: No Feels Safe at Home: Yes Safety Concerns: Feels Safe At This Time caffeine: Yes Dental Care, Regularly: Yes Physical Activity Frequency: 1-2 Times per Week Seatbelt Use: always Assistive Devices: Glasses and Nebulizer Physical Exam Physical Exam: Patient is alert and oriented heart regular rhythm Lungs clear Results & Data Results & Data Vital Signs (Past 12 Hours) Vital Signs Temp Pulse Resp BP Pulse Ox O2 Del Method 02/02/25 06:46 36.9 C 65 16 152/87 H 100 Room Air
[2025-02-02] MEDS: ceFAZolin 2000MG 2,000 MG/15 ML SYR IV SCH (08:19)
[2025-02-02] MEDS: ceFAZolin 330 MG/ML 1 GM VIAL ONE (08:40)
[2025-02-02] MEDS: BACITRACIN OINT 14 GM TUBE ONE (08:41)
[2025-02-02] MEDS: BUPIVACAINE/EPINEPHRINE 0.25% 1:200,000 30 ML VIAL ONE (08:41)
[2025-02-02] MEDS: FLOSEAL HEMOSTATIC MATRIX 10ML TOP ONE (10:25)
--- NOTE | 2025-02-02 10:39 | Operative Report ---
Post Operative Report Pre & Post Diagnosis Operation Date: 02/02/25 07:45 Pre-Op Diagnosis: Cervical Spondylosis, Cervical Radiculopathy Post-Op Diagnosis: Cervical Spondylosis, Cervical Radiculopathy I identified the patient and participated in the time-out.: Yes Procedure Operation Date: 02/02/25 07:45 Actual Procedures #1 posterior cervical decompression with bilateral foraminotomies C6-C7 and C7- T1 1 T1-T2. #2 posterior cervical fusion C5-T3. #3 placed posterior segmental cervical instrumentation C5-T3 using globus. #4 placement locally harvested morselized autograft combined with infuse collagen sponge and Koros in the posterior lateral gutters. Surgeon Ian Reyes, Photocopier Technician Narda Slater Estimated Blood Loss 350 Findings Consistent with Post-Op Diagnosis Specimens None Indications This is a 69-year-old male presents with admission diagnosis of failing course of nonoperative care is here for surgical invention. Description of Procedure Patient was met with identified informed consent obtained. Patient was then taken to the operative suite underwent intubation placed in a prone position on the chest pad hip bolsters with a 3 prong Lees. The posterior cervical spine was then prepped and draped in a sterile fashion. Sharp dissection with the assistance of Bovie cautery was then performed down to and exposing the lamina and lateral masses of C5-C6-C7 and the lamina and transverse processes of T1-T2 and T3. Then proceeded to place posterior instrumentation and see 5 and C6 lateral mass screws with pedicle screws in T2 and T3 bilaterally with the C1 pedicle screw on the right. Then performed a complete laminectomy of the T1 C7 and partial laminectomy of C6 including bilateral foraminotomies. After complete decompression publicized sulma was then contoured and locked in position bilaterally. The lateral masses and transverse processes of C5-C6-C7 T1-T2 and T3 burred to subcortical bleeding bone. Infuse collagen sponge, with Koros and local autograft placed in posterior gutters. 15 round LIBBY drain inserted. The incision was then closed with 1 Vicryl the fascia 2-0 Vicryl subcutaneously and 4 Monocryl for final skin closure. Steri-Strips sterile dressing placed. Patient waken taken to PACU stable condition. Please note spinal cord monitoring was utilized without the procedure and no changes noted. Narda Slater was present at the entire surgeon while the patient positioning complex portion of the surgery and fashion closure. Im ordering 20 grams of Collagen Powder ([facility] A6010 Primary Dressing) and 20 bordered super absorbent ([facility] A6196 Secondary Dressing) to treat an incision wound that was caused by a spine pro cedure. The incision is approximately 2 cm(W) x 8 cm(L) down to the spinal column and epidural space 2 cm (D) in size and is a full thickness wound showing no signs of infection. Collagen comes in 1 gram packets so 20 packets were ordered. Given the size of the wound, with moderate exudate I chose to order a 20 day supply. The patient will be provided instructions for proper application of the collagen wound kit. The patient will be asked to apply the collagen powder daily and then cover it with sterile dressings dispensed. Collagen was selected as I expect the collagen to attract monocytes and fibroblasts, act as a sacrificial substrate for MMPs, and ultimately proved a matrix for tissue and vessel growth. The collagen will act as a primary dressing in this scenario. It is medically necessary for proper healing of these wounds to improve bioavailability and contact with each wound surface, this is also to help prevent infection of wounds and promote healing ultimately leading to a better healing outcome and limit the risk of infection. I attest to the content of the Intraoperative Record and any orders documented therein. Any exceptions are noted below.
--- NOTE | 2025-02-02 11:14 | Fluoroscopy Report ---
FL cervical 2-3V CLINICAL HISTORY: C5-T3 POSTERIOR CERVICAL DECOMP/FUSION COMPARISON STUDY: None FLUOROSCOPY TIME: 47 seconds FLUOROSCOPY IMAGES: 4 EXPOSURE DOSE: 19 mGy FINDINGS: Fluoroscopy was provided for lower cervical and upper thoracic spinal fusion. IMPRESSION: Intraoperative fluoroscopy. ACT 112: Negative or not required by law. Electronically signed by: Valentino Maki M.D. 02/02/2025 11:12 AM
[2025-02-02] MEDS: HYDROmorphone INJ 2 MG/ML SYR/VIAL IV PRN (11:25)
[2025-02-02] MEDS ORDERED: ALBUT/IPRATROP 3MG/0.5MG NEB 3 ML VIAL NEB STA (12:16)
[2025-02-02] MEDS: ALBUT/IPRATROP 3MG/0.5MG NEB 3 ML VIAL ONE (12:21)
--- NOTE | 2025-02-02 14:22 | Anesthesiology Progress Note ---
Date of Service February 02, 2025 Anesthesia Post Procedure Vital Signs Vital Signs: Temp Pulse Pulse Resp BP Pulse Ox O2 Del Method 02/02/25 14:00 34.6 C L 68 14 106/65 100 Nasal Cannula 02/02/25 13:30 68 12 106/74 100 Nasal Cannula 02/02/25 13:00 68 14 113/67 98 Room Air 02/02/25 12:45 70 13 130/71 98 Room Air 02/02/25 12:30 83 13 145/74 H 100 Room Air 02/02/25 12:15 66 12 130/73 100 Room Air 02/02/25 12:00 58 L 18 114/67 100 Room Air 02/02/25 11:50 68 16 124/78 98 Room Air 02/02/25 11:40 52 L 12 106/66 100 Room Air 02/02/25 11:30 63 18 137/83 100 Nasal Cannula 02/02/25 11:20 70 16 131/87 100 Nasal Cannula 02/02/25 11:10 75 20 135/81 100 Nasal Cannula 02/02/25 11:04 36 C L 64 14 117/72 100 Nasal Cannula 02/02/25 06:46 36.9 C 65 16 152/87 H 100 Room Air O2 Flow Rate 02/02/25 14:00 1 02/02/25 13:30 1 02/02/25 13:00 02/02/25 12:45 02/02/25 12:30 02/02/25 12:15 02/02/25 12:00 02/02/25 11:50 02/02/25 11:40 02/02/25 11:30 2 02/02/25 11:20 2 02/02/25 11:10 3 02/02/25 11:04 3 02/02/25 06:46 Pain Intensity Posterior Neck: Pain Intensity: 4 Transfer of Care Handoff Completed per policy Notes Mental Status: alert / awake / arousable and participated in evaluation Nausea / Vomiting: adequately controlled Pain: adequately controlled Airway Patency, RR, SpO2: stable & adequate BP & HR: stable & adequate Hydration State: stable & adequate Anesthetic Complications: no major complications apparent and Pt Satisfied with anesthetic care
[2025-02-02] MEDS ORDERED: MAGNESIUM HYDROXIDE SUSP 30 ML UDC PO PRN (14:45)
[2025-02-02] MEDS ORDERED: hydrOXYzine HCl 25 MG TAB PO PRN (14:45)
[2025-02-02] MEDS ORDERED: ACETAMINOPHEN 1,000 MG/100 ML VIAL IV PRN (14:45)
[2025-02-02] MEDS ORDERED: ALBUTEROL 0.083% NEBU SOLN 3 ML VIAL INH PRN (14:45)
[2025-02-02] MEDS ORDERED: SOD PHOSPHATE/SOD BIPHOSPHATE ENEMA 132 ML BTL PR PRN (14:45)
[2025-02-02] MEDS ORDERED: HYDROmorphone INJ 0.5 MG/0.5 ML SYR IV PRN (14:45)
[2025-02-02] MEDS ORDERED: NALOXONE HCL 0.4 MG/1 ML VIAL/CARP IV PRN (14:45)
[2025-02-02] MEDS ORDERED: DO NOT ADMINISTER PNEUMOCOCCAL VACCINE PRN (14:45)
[2025-02-02] MEDS ORDERED: traMADol HCL 50 MG TABLET PO PRN (14:45)
[2025-02-02] MEDS ORDERED: ONDANSETRON 4 MG OD TAB PO PRN (14:45)
[2025-02-02] MEDS ORDERED: FAMOTIDINE 20 MG TAB PO PRN (14:45)
[2025-02-02] MEDS ORDERED: FLUTICASONE PROPIONATE NA SPR 16 GM BTL PRN (14:45)
[2025-02-02] MEDS ORDERED: LORazepam 2 MG/1 ML VIAL IV PRN (14:45)
[2025-02-02] MEDS ORDERED: dexAMETHasone 8 MG in SYRINGE 0 ML IV PRN (14:45)
[2025-02-02] MEDS ORDERED: PROMETHAZINE 12.5 MG/50.5 ML BAG IV PRN (14:45)
[2025-02-02] MEDS ORDERED: ONDANSETRON INJ 2 MG/ML 2 ML VIAL IV PRN (14:45)
[2025-02-02] MEDS ORDERED: ALUMINUM/MAGNESIUM SUSP 30 ML UDC PO PRN (14:45)
[2025-02-02] MEDS ORDERED: RACEPINEPHRINE 2.25% NEBU SOLN 0.5 ML VIAL INH PRN (14:45)
[2025-02-02] MEDS ORDERED: bisacodyL 10 MG SUPP PR PRN (14:45)
[2025-02-02] MEDS ORDERED: METOCLOPRAMIDE HCL INJ 5 MG/ML 2 ML VIAL IV PRN (14:45)
[2025-02-02] MEDS ORDERED: SUMAtriptan succinate 100 MG TAB PO PRN (14:45)
[2025-02-02] MEDS ORDERED: DO NOT ADMINISTER FLU VACCINE PRN (14:45)
[2025-02-02] MEDS ORDERED: FLUTICASONE FUROATE 100MCG 14 PUFFS/INHALER INH PRN (15:13)
[2025-02-02] MEDS: HYDROCODONE/ACETAMOPHEN 5/325MG TAB PO PRN (15:29)
[2025-02-02] MEDS: LORazepam 0.5 MG TAB PO PRN (15:48)
--- NOTE | 2025-02-02 16:04 | Hospitalist Consultation ---
Date of Consultation February 02, 2025 Assessment & Plan (1) Hypertension: (2) Anemia: (3) History of BPH: (4) Hypothyroidism: (5) Trigeminal neuralgia: (6) GERD (gastroesophageal reflux disease): Plan Parmjit is a 69-year-old male with a past medical history of cervical disc disease, elevated Lipoprotein (a), hypertension, asthma, GERD, hypothyroid and trigeminal neuralgia. hospitalist consulted for medical management. #Hypertension Hold telmisartan or formulary equivalent until a.m. labs result AM BMP #Asthma - continued prn inhalers/nebs #GERDcontinue PPI #Hypothyroidcontinue Synthroid #Trigeminal neuralgiaokay to continue home Lyrica dose 50mg BID #BPH - continue finasteride #Status post cervical spine surgery C5-T3 posterior cervical decompression and fusion with Dr. Reyes 02/02 EBL: 350 - monitor a.m. CBC pain control/DVT prophylaxis/antibiotics/dispo planning per primary team Thank you for allowing us to participate in the care of this patient, please reach out with any questions or concerns. Medicine will continue to follow for AM labs Supervising Physician Co-Signing Physician Notes The patient was seen by me. The chart was reviewed. Case discussed with JOHN Giordano. Agree with assessment and plan. History of Present Illness Reason for Consultation: Medical management Requesting Physician: Dr. Reyes Attending Physician: Ian Reyes, DO History of Present Illness Parmjit is a 69-year-old male with a past medical history of cervical disc disease, elevated Lipoprotein (a), hypertension, asthma, GERD, hypothyroid and trigeminal neuralgia who presents to the hospital for elective surgery with Dr. Reyes. He is seen postoperatively lying in bed. reports havng pain at the surgical site. Said he had hives from oxycotin in tht past but would be willing to try if unable to get pain under control. Denies pain radiating down the arms. He is tolerating ice chips without issue. Has not passed gas since surgery, but last BM was yesterday. No smoking, occasional ETOH use. No cpap or home oxygen. Allergies Allergy/AdvReac Type Severity Reaction Status Date / Time oxycodone [From OxyContin] AdvReac Mild Headache Verified 02/02/25 06:41 Home Medications Medication Instructions Recorded Confirmed Type fluticasone propionate 50 1 spray intranasal BID PRN allergy 03/07/21 02/02/25 Rx mcg/actuation nasal symptoms 30 days #15.8 mL spray,suspension (Flonase Allergy Relief) albuterol sulfate 90 mcg/actuation 1 inh inhalation QID PRN shortness 09/02/23 02/02/25 Rx aerosol inhaler of breath or wheezing #8.5 grams finasteride 5 mg tablet (Proscar) 5 mg PO QAM #90 tabs 02/01/24 02/02/25 Rx beclomethasone dipropionate 40 1 inh inhalation Q12H PRN 03/11/24 02/02/25 Rx mcg/actuation HFA breath activated Shortness Of Breath Or Wheezing #1 aerosol (Qvar RediHaler) inhaler albuterol sulfate 2.5 mg/3 mL 2.5 mg inhalation Q6H PRN SOB 03/13/24 02/02/25 History (0.083 %) solution for nebulization pregabalin 50 mg capsule (Lyrica) 50 mg PO BID #90 caps 09/17/24 02/02/25 Rx lorazepam 0.5 mg tablet 0.5 mg PO HS PRN sleep #30 tabs 09/28/24 02/02/25 Rx aspirin 81 mg tablet,delayed 81 mg PO QPM 09/30/24 02/02/25 History release (Adult Low Dose Aspirin) telmisartan 20 mg tablet (Micardis) 10 mg PO QAM 09/30/24 02/02/25 History levothyroxine 75 mcg tablet 75 mcg PO QAM #90 tabs 12/29/24 02/02/25 Rx (Synthroid) multivitamin 1 tab PO QAM 01/06/25 02/02/25 History pantoprazole 40 mg tablet,delayed 40 mg PO UD 01/06/25 02/02/25 History release sumatriptan succinate 100 mg tablet 100 mg PO .twice daily PRN 01/19/25 02/02/25 Rx migraine headache #10 tabs Patient History Medical History Anemia Chronic Asthma Chronic sinusitis Per records GERD (gastroesophageal reflux disease) Hx History of BPH Hx of migraines Hypertension Hypothyroidism Seizure Per remote records (entered 2020 without further details) Patient denies Trigeminal neuralgia Takes Lyrica Surgical History History of left knee replacement (2021) History of esophagogastroduodenoscopy (EGD) S/P colonoscopy S/P sinus surgery S/P inguinal hernia repair S/P arthroscopic knee surgery left H/O neck surgery ~C5 fusion (2008) Family History Father Myocardial infarction Parkinson disease Mother Hypertension Denies family history of Hearing loss No family history of adverse response to anesthesia No family history of bleeding disorder Heart disease Allergies Cancer Stroke Asthma Social History Smoking Status: Never smoker Second Hand Exposure: No; Do You Dip or Chew Tobacco: No; Tobacco Cessation Education Requested by Patient: No Hx Alcohol Use: Yes Alcohol Intake Frequency: 2-3 x/Week Hx Substance Use: No Preferred Language: Romansh Communication Ability: Effective Visual Impairment: Limited Hearing Ability: Normal 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 Beliefs That Will Affect Care: None marital status: Current Living Situation: Spouse current occupational status: retired Other Information That Helps Us Care for You: No Feels Safe at Home: Yes Safety Concerns: Feels Safe At This Time caffeine: Yes Dental Care, Regularly: Yes Physical Activity Frequency: 1-2 Times per Week Seatbelt Use: always Assistive Devices: Glasses and Nebulizer Review of Systems Review of Systems: All systems reviewed & are unremarkable except as noted in Subjective Physical Exam Physical Exam: General: NAD, VS as above, lying in bed, rapid speech HEENT: c collar inplace, handleing scretions Resp: normal respiratory effort, lungs clear to auscultation anteriorly CV: RRR, no murmur, Abd: normal bowel sounds,soft Extremities: Moves all extremities, no edema Neuro: A&O x3, Skin: intact, no lesions noted Results & Data Results & Data Vital Signs (Past 12 Hours) Vital Signs Temp Pulse Pulse Resp BP Pulse Ox O2 Del Method 02/02/25 15:34 97.3 F L 81 18 121/79 98 Room Air 02/02/25 14:53 77 16 100 Room Air 02/02/25 14:48 97.5 F L 02/02/25 14:31 97.5 F L 68 16 136/76 100 Room Air 02/02/25 14:00 94.3 F L 68 14 106/65 100 Nasal Cannula 02/02/25 13:30 68 12 106/74 100 Nasal Cannula 02/02/25 13:00 68 14 113/67 98 Room Air 02/02/25 12:45 70 13 130/71 98 Room Air 02/02/25 12:30 83 13 145/74 H 100 Room Air 02/02/25 12:15 66 12 130/73 100 Room Air 02/02/25 12:00 58 L 18 114/67 100 Room Air 02/02/25 11:50 68 16 124/78 98 Room Air 02/02/25 11:40 52 L 12 106/66 100 Room Air 02/02/25 11:30 63 18 137/83 100 Nasal Cannula 02/02/25 11:20 70 16 131/87 100 Nasal Cannula 02/02/25 11:10 75 20 135/81 100 Nasal Cannula 02/02/25 11:04 96.8 F L 64 14 117/72 100 Nasal Cannula 02/02/25 06:46 98.4 F 65 16 152/87 H 100 Room Air O2 Flow Rate 02/02/25 15:34 02/02/25 14:53 02/02/25 14:48 02/02/25 14:31 02/02/25 14:00 1 02/02/25 13:30 1 02/02/25 13:00 02/02/25 12:45 02/02/25 12:30 02/02/25 12:15 02/02/25 12:00 02/02/25 11:50 02/02/25 11:40 02/02/25 11:30 2 02/02/25 11:20 2 02/02/25 11:10 3 02/02/25 11:04 3 02/02/25 06:46 PG Care Time/CCT Total # of Minutes Spent Total Time Spent with Patient: Total time spent is greater than 50% in coordination of care (as documented) at patient's floor/unit and/or counseling patient: Coding Level of Care Code 45410 IN/OBS CONSULT LVL 3,45M Diagnoses Hypertension I10 Anemia D64.9 History of BPH Z87.438 Hypothyroidism E03.9 Trigeminal neuralgia G50.0 GERD (gastroesophageal reflux disease) K21.9
[2025-02-02] MEDS: ceFAZolin 1000MG 1,000 MG/7.5 ML SYR IV SCH (16:31)
[2025-02-02] MEDS: HYDROmorphone INJ 1 MG/ML SYRINGE IV PRN ×2 (16:31→21:46)
[2025-02-02] MEDS: diphenhydrAMINE Capsule 25 MG CAP PO PRN (16:56)
[2025-02-02] MEDS: ALBUTEROL HFA 8 GM INHALER INH PRN (17:14)
[2025-02-02] MEDS: DOCUSATE SODIUM/SENNA 50/8.6MG TAB PO SCH (20:10)
[2025-02-02] MEDS: PREGABALIN 50 MG CAP PO SCH (20:10)
[2025-02-02] MEDS: ASPIRIN 81 MG ECTAB PO SCH (20:10)
[2025-02-02] MEDS: BECLOMETHASONE DIP 40 MCG INH PRN (22:55)
[2025-02-03] MEDS: POLYETHYLENE (MIRALAX) 17 GM PACK PO SCH (05:13)
[2025-02-03] MEDS: LOSARTAN POTASSIUM 25 MG TAB PO SCH (06:59)
[2025-02-03] MEDS: PANTOprazole 40 MG TAB PO SCH (07:46)
[2025-02-03] MEDS: LEVOTHYROXINE SODIUM 75 MCG TABLET PO SCH (07:46)
[2025-02-03] MEDS: FINASTERIDE 5 MG TAB PO SCH (07:46)
[2025-02-03] MEDS: CALCIUM CARBONATE 500 MG CHEWABLE TAB PO PRN (07:46)
[2025-02-03] MEDS: MULTIVITAMIN TAB PO SCH (07:47)
[2025-02-03] MEDS: dexAMETHasone 6 MG in SYRINGE 0 ML IV SCH (07:49)
[2025-02-03 08:43] LABS: Basophils # (auto) 0.02 K/uL (0.00-0.20); Basophils % (auto) 0.1 %; Eosinophils # (auto) 0.02 K/uL (0.00-0.50); Eosinophils % (auto) 0.1 %; Hematocrit (blood only) 34.4 % (42.0-52.0); Hemoglobin 11.1 g/dl (14.0-18.0); Immature Granulocytes # (auto) 0.07 K/uL (0.01-0.20); Immature Granulocytes % (auto) 0.4 %; Lymphocytes # (auto) 1.51 K/uL (1.20-3.40); Lymphocytes % (auto) 7.7 %; Mean Corpuscular Hemoglobin 28.1 pg (25.0-34.0); Mean Corpuscular Hgb Conc 32.3 g/dL (32.0-36.0); Mean Corpuscular Volume 87.1 fL (80.0-100.0); Monocytes # (auto) 1.03 K/uL (0.11-0.59); Monocytes % (auto) 5.2 %; Neutrophils # (auto) 17.01 K/uL (1.40-6.50); Neutrophils % (auto) 86.5 %; Platelet Count 194 K/uL (130-400); RDW Coefficient of Variation 13.3 % (11.5-14.5); Red Blood Count 3.95 M/uL (4.70-6.10); White Blood Count 19.66 K/ul (4.8-10.8)
[2025-02-03 09:08] LABS: BUN Creatinine Ratio 22.2 (10-20); Calcium 8.5 mg/dl (8.6-10.3); Potassium 3.6 mmol/L (3.5-5.1)
--- NOTE | 2025-02-03 11:39 | Hospitalist Progress Note ---
Date of Service February 03, 2025 Assessment & Plan (1) Hypertension: (2) Anemia: (3) History of BPH: (4) Hypothyroidism: (5) Trigeminal neuralgia: (6) GERD (gastroesophageal reflux disease): Plan Parmjit is a 69-year-old male with a past medical history of cervical disc disease, elevated Lipoprotein (a), hypertension, asthma, GERD, hypothyroid and trigeminal neuralgia. hospitalist consulted for medical management. #Hypertension - okay to continue telmisartan #Asthma - continued prn inhalers/nebs #GERDcontinue PPI #Hypothyroidcontinue Synthroid #Trigeminal neuralgiaokay to continue home Lyrica dose 50mg BID #BPH - continue finasteride. Patient has voided since muñoz removal. #Status post cervical spine surgery C5-T3 posterior cervical decompression and fusion with Dr. Reyes 02/02 EBL: 350 - hgb 11.1 post operatively, down from 12.7 - possible acute blood loss anemia vs dilutional. WBC elevation likely reactive to steroid use and stress from surgery. Patient very worried about pneumothorax this morning despite adequate incentive spirometer use and 99% on room air, demanding chest xray. This was ordered and had no acute findings, no pneumothorax. Pain control/DVT prophylaxis/antibiotics/dispo planning per primary team Thank you for allowing us to participate in the care of this patient. Medicine will sign off, please reconsult with any new concerns. Admission and Anticipated Discharge Date Admission Date: February 02, 2025 Supervising Physician Co-Signing Physician Notes PA Supervision Note: I did not personally see or examine the patient today, but I verified all millard points of JOHN Gaston's assessment and plan with the following exceptions/additions: None Subjective patient seen lying in bed - patient complaining that this has been a terrible/serious experience for me and no one is doing anything for him He reports feeling short of breath and thinks he has a pneumothorax - is has been doing well with his incentive spirometer and O2 is 99% on room air as he is saying this. He has not been able to urinate since the muñoz has been removed - i encouraged PO intake and to allow the RN to bladder scan him. I did warn him that a muñoz may need to be replaced. Review of Systems Review of Systems: All systems reviewed & are unremarkable except as noted in Subjective Physical Exam Physical Exam: General: NAD, VS as above, lying in bed, rapid speech HEENT: c collar inplace, handling secretions, no stridor Resp: normal respiratory effort, lungs clear to auscultation CV: RRR, no murmur, Abd: normal bowel sounds,soft Extremities: Moves all extremities, no edema Neuro: A&O x3, Skin: intact, no lesions noted Results & Data Results & Data Vital Signs (Past 12 Hours) Vital Signs Temp Pulse Pulse Resp BP BP Pulse Ox 02/03/25 10:44 68 20 98 02/03/25 10:05 02/03/25 09:46 97.7 F 73 18 130/77 94 02/03/25 07:33 97.5 F L 83 17 127/75 99 02/03/25 07:16 70 18 99 02/03/25 07:05 97.5 F L 65 18 129/75 98 02/03/25 05:38 97.7 F 71 18 122/71 98 02/03/25 03:30 97.7 F 84 16 111/65 99 02/03/25 02:17 64 16 100 02/03/25 01:34 97.5 F L 77 16 106/61 98 O2 Del Method 02/03/25 10:44 Room Air 02/03/25 10:05 Room Air 02/03/25 09:46 Room Air 02/03/25 07:33 Room Air 02/03/25 07:16 Room Air 02/03/25 07:05 Room Air 02/03/25 05:38 Room Air 02/03/25 03:30 Room Air 02/03/25 02:17 Room Air 02/03/25 01:34 Room Air Laboratory Results cbc and chemistry reviewed PG Care Time/CCT Total # of Minutes Spent Total Time Spent with Patient: Total time spent is greater than 50% in coordination of care (as documented) at patient's floor/unit and/or counseling patient: Coding Level of Care Code 87859 SUB INP/OBS CARE 2/35MIN Diagnoses Hypertension I10 Anemia D64.9 History of BPH Z87.438 Hypothyroidism E03.9 Trigeminal neuralgia G50.0 GERD (gastroesophageal reflux disease) K21.9
--- NOTE | 2025-02-03 12:01 | XRay Report ---
XR chest 1V portable CLINICAL HISTORY: SOB, recent sx, r/o pneumo COMPARISON STUDY: 01/20/2025 FINDINGS: Heart size and pulmonary vasculature are normal. No effusion, consolidation, or pneumothora x. IMPRESSION: No pneumonia seen. ACT 112: Negative or not required by law. Electronically signed by: Valentino Maki M.D. 02/03/2025 11:59 AM
--- NOTE | 2025-02-03 12:30 | Orthopedic Progress Note ---
Date of Service February 03, 2025 Assessment & Plan (1) Cervical spondylosis with radiculopathy: Plan: At this time the patient is stable. The LIBBY drain is functioning. Will continue with physical therapy and monitor his progress hopefully discharge home the next few days. Admission and Anticipated Discharge Date Admission Date: February 02, 2025 Subjective Neck pain is controlled arm symptoms improved. vinod Physical Exam Physical Exam: On exam the patient appears comfortable to discuss trying to testing. LIBBY drain is functioning. Results & Data Vital Signs (Past 12 Hours) Vital Signs Temp Pulse Pulse Resp BP BP Pulse Ox 02/03/25 11:45 76 16 133/76 96 02/03/25 10:44 68 20 98 02/03/25 10:05 02/03/25 09:46 36.5 C 73 18 130/77 94 02/03/25 07:33 36.4 C L 83 17 127/75 99 02/03/25 07:16 70 18 99 02/03/25 07:05 36.4 C L 65 18 129/75 98 02/03/25 05:38 36.5 C 71 18 122/71 98 02/03/25 03:30 36.5 C 84 16 111/65 99 02/03/25 02:17 64 16 100 02/03/25 01:34 36.4 C L 77 16 106/61 98 O2 Del Method 02/03/25 11:45 Room Air 02/03/25 10:44 Room Air 02/03/25 10:05 Room Air 02/03/25 09:46 Room Air 02/03/25 07:33 Room Air 02/03/25 07:16 Room Air 02/03/25 07:05 Room Air 02/03/25 05:38 Room Air 02/03/25 03:30 Room Air 02/03/25 02:17 Room Air 02/03/25 01:34 Room Air
[2025-02-03] MEDS: HYDROmorphone HCL 2 MG TAB PO PRN ×2 (14:38→20:47)
[2025-02-03] MEDS: HYDROmorphone INJ 0.5 MG/0.5 ML SYR IV PRN (18:22)
--- NOTE | 2025-02-04 09:31 | Orthopedic Progress Note ---
Date of Service February 04, 2025 Assessment & Plan (1) Cervical spondylosis with radiculopathy: Plan: At this time we will continue physical therapy monitor his LIBBY output. He is requested rehab for assistance postoperatively. Will try to have this arranged for discharge potentially tomorrow. Admission and Anticipated Discharge Date Admission Date: February 02, 2025 Subjective Patient is complaining mostly of neck pain. Arm symptoms still markedly improved. He is swallowing well. Not tolerating physical therapy. Physical Exam Physical Exam: On exam he has good strength testing. Results & Data Vital Signs (Past 12 Hours) Vital Signs Temp Pulse Pulse Resp BP Pulse Ox O2 Del Method 02/04/25 07:35 70 16 97 Room Air 02/04/25 07:28 36.8 C 71 16 156/80 H 99 Room Air 02/04/25 02:34 36.6 C 77 16 138/73 100 Room Air 02/04/25 02:25 75 18 97 Room Air 02/03/25 22:45 36.6 C 82 16 132/74 100 Room Air 02/03/25 22:41 83 18 100 Room Air
[2025-02-04] MEDS: ACETAMINOPHEN 500 MG TAB PO PRN (21:29)
[2025-02-05 07:46] VITALS: PULSE 72
[2025-02-05 07:56] VITALS: BP 146/87; RESP 18; TEMP 97.9; O2SAT 99
--- NOTE | 2025-02-05 09:41 | Discharge Summary ---
Date of Service February 05, 2025 Admission HPI Per Admitting Provider This is a 61-year-old male presents for persistent neck and arm pain and failing course of nonoperative care is here for surgical invention. Principal Diagnosis Cervical spondylosis with radiculopathy Discharge Data Allergies Allergy/AdvReac Type Severity Reaction Status Date / Time oxycodone [From OxyContin] AdvReac Mild Headache Verified 02/02/25 06:41 Consultations 02/02/25 14:45 Consult Hospitalist Routine Procedures Performed Operation Date: 02/02/25 07:45 Actual Procedures p C5-T3 Posterior Cervical Decompression and Fusion, Spinal Cord Monitoring(Not Applicable) - Ian Reyes DO Ordered Studies 02/02/25 [place] cervical 2-3V Routine Hospital Course (1) Cervical spondylosis with radiculopathy: Patient underwent posterior cervical decompression fusion tolerated this well was taken to the orthopedic floor postoperative. Postop he progressed appropriately throughout his stay. Strength improving. Tolerating physical therapy. Pain controlled. Subsidy discharged home. Discharge orders instructions from the chart for further review. Total Time Total Time Spent Total Time Spent (In Minutes): 20 minutes Discharge Plan Discharge Items Patient Disposition: Home - Home Health Services Reason For Visit: Cervical Spondylosis, Cervical Radiculopathy Discharge Diagnosis: Cervical spondylosis with radiculopathy Activity: As commented below Non-emergency contact: Primary Care Provider Call non-emergency contact if: you have any medication questions Follow-up/Referrals: Conrado Connell MD [Primary Care Provider] - Diet: Regular Addtl Attending Provider Instructions: ACTIVITY RECOMMENDATIONS: SELF CARE INSTRUCTIONS AFTER CERVICAL FUSIONS 1. No smoking. Smoking drastically decreases the chance of a solid fusion. 2. No bending, lifting more than 5 pounds, or twisting (roll like a log when turning in bed). 3. You may shower 3 days after surgery. Thoroughly dry wound. Do not soak in the tub. 4. Cervical collar: Must be worn at all times including sleeping. You may remove the brace only to bath, eat and if you are sitting in a recliner. 5. Please walk as much as you can for exercise. Gradually increase the distance that you walk as your endurance increases. 6. You may return to previous diet. SPECIAL CARE INSTRUCTIONS: VERY IMPORTANT TO READ AND REVIEW A. Do not take any anti-inflammatory medications (i.e. Indocin, Advil, Aspirin, Naprosyn, Aleve, Motrin, etc.) as these may inhibit the chance of a solid fusion. Tylenol is okay to take. B. Your surgical incision has been closed with a cosmetic suture under the skin that will dissolve in about 6 weeks. In 14 days, you can use a pair of clean scissors and cut the suture that is left outside of the skin at the ends of your incision. C. Complications are uncommon, but please contact us if you have any signs or symptoms of: 1. wound infection (fever higher than 102.5 degrees F, redness, separation of wound, drainage, or increasing pain from the incision) 2. blood clots in legs (pain, swelling, redness and warmth in legs) 3. urinary tract infection (fever higher than 102.5 degrees, burning upon urination or increased frequency of urination) 4. nerve problems (inability to walk on your toes or heels, numbness, loss of bowel or bladder control) 5. any other symptoms that concern you. D. Please call the office at if you have any concerns or questions about your operation or recovery. MANAGING PAIN AFTER SPINAL SURGERY 1. Narcotic medication is intended for short-term use and will be provided for surgical pain. Surgical pain usually lasts for a period of 4-6 weeks. Narcotic medication includes Percocet, Vicodin, Darvocet, Tylenol #3 or Lortab. 2. Longer-term pain is more appropriately treated with non-narcotic medication such as Tylenol ES. 3. Muscle spasm is not appropriately treated with narcotics. Muscle relaxers such as Soma, Flexeril or Skelaxin can be used along with Tylenol ES. 4. Remember that we all live with some "aches and pains". This is not unusual or uncommon after an injury or as we get older. 5. We will provide appropriate medication within the normal guidelines of their prescribed use. We will also be very cautious and aware of potential abuse and extended duration of patients' medication needs. 6. Please allow 2-3 days to process refills. Prescriptions will not be mailed but must be picked up at the office. FOLLOW UP VISIT: Keep your scheduled follow-up appointment. Any questions, please call the office at . Pending Studies at Discharge: No Stand-Alone Forms: My [facility], Smoking Cessation Medications and DC Order Prescriptions: New hydromorphone [Dilaudid] 2 mg Tablet 2 mg PO Q3H PRN (Reason: pain) Qty: 30 0RF Continued albuterol sulfate 90 mcg/actuation HFA aerosol inhaler 1 inh inhalation QID PRN (Reason: shortness of breath or wheezing) Qty: 8.5 3RF finasteride [Proscar] 5 mg tablet 5 mg PO QAM Qty: 90 3RF pregabalin [Lyrica] 50 mg capsule 50 mg PO BID Qty: 90 5RF lorazepam 0.5 mg tablet 0.5 mg PO HS PRN (Reason: sleep) Qty: 30 5RF levothyroxine [Synthroid] 75 mcg tablet 75 mcg PO QAM Qty: 90 3RF fluticasone propionate [Flonase Allergy Relief] 50 mcg/actuation spray,suspension 1 spray intranasal BID PRN (Reason: allergy symptoms) 30 Days Qty: 15.8 8RF Qvar RediHaler 40 mcg/actuation HFA aerosol breath activated 1 inh INHALATION Q12H PRN (Reason: Shortness Of Breath Or Wheezing) Qty: 1 5RF sumatriptan succinate 100 mg tablet 100 mg PO .twice daily PRN (Reason: migraine headache) Qty: 10 5RF Rx Instructions: do not exceed 2 doses per 24 hrs albuterol sulfate 2.5 mg /3 mL (0.083 %) solution for nebulization 2.5 mg inhalation Q6H PRN (Reason: SOB) aspirin [Adult Low Dose Aspirin] 81 mg tablet,delayed release (DR/EC) 81 mg PO QPM telmisartan [Micardis] 20 mg tablet 10 mg PO QAM multivitamin Tablet 1 tab PO QAM pantoprazole 40 mg tablet,delayed release (DR/EC) 40 mg PO UD Patient Comments: 01/06/25, not taking at the moment Discharge Orders: Discharge Order (Routine); Ordered 02/05/25 Ordered By: Ian Reyes Admission Data Admit Date/Time: 02/02/25 10:50 Attending Provider: Ian Reyes Admit Provider: Ian Reyes Primary Care Provider: Conrado Connell
== END 2025-02-05 13:32 | disposition home health service (06) | DRG 448 ==
LOC: ASU 06:29 → 3E 10:50

== ENCOUNTER 2025-02-12 17:10 | Inpatient (IN) ==
[2025-02-12 17:59] LABS: Basophils # (auto) 0.09 K/uL (0.00-0.20); Basophils % (auto) 0.5 %; Eosinophils # (auto) 0.19 K/uL (0.00-0.50); Eosinophils % (auto) 1.1 %; Hematocrit (blood only) 35.2 % (42.0-52.0); Hemoglobin 11.9 g/dl (14.0-18.0); Immature Granulocytes % (auto) 0.6 %; Lymphocytes # (auto) 1.93 K/uL (1.20-3.40); Lymphocytes % (auto) 10.8 %; Mean Corpuscular Hemoglobin 28.9 pg (25.0-34.0); Mean Corpuscular Hgb Conc 33.8 g/dL (32.0-36.0); Mean Corpuscular Volume 85.4 fL (80.0-100.0); Monocytes # (auto) 1.98 K/uL (0.11-0.59); Neutrophils # (auto) 13.64 K/uL (1.40-6.50); Platelet Count 294 K/uL (130-400); RDW Coefficient of Variation 12.7 % (11.5-14.5); Red Blood Count 4.12 M/uL (4.70-6.10); White Blood Count 17.93 K/ul (4.8-10.8)
[2025-02-12 18:10] LABS: Albumin Globulin Ratio 1.2 (0.9-2); Albumin Level 3.8 gm/dl (3.4-5.0); Bilirubin,Total 0.6 mg/dl (0.2-1.0); Calcium 8.6 mg/dl (8.6-10.3); Creatinine Clr Calc Pharmacy 59.6 ml/min; Globulin 3.3 gm/dl (2.5-4.0); Potassium 3.8 mmol/L (3.5-5.1); Total Protein 7.1 gm/dl (6.0-8.3)
[2025-02-12 18:21] LABS: Troponin I High Sensitivity 5.3 pg/ml (0-20)
--- NOTE | 2025-02-12 18:21 | XRay Report ---
Clinical History: Weakness Technique: A frontal view of the chest was obtained Comparison is made to the prior examination dated 02/03/2025 Findings: There are no confluent pulmonary infiltrates. The heart size is within normal limits. No pleural effusion or pneumothorax is seen. There is no definite pulmonary nodule. No fracture is noted. There is an unchanged fusion of the cervical and upper thoracic spine Impression: No active disease Electronically signed by Yair Rinocn 02-12-2025 6:20 PM
[2025-02-12] MEDS: SODIUM CHLORIDE 0.9% 1,000 ML IV ONE (18:47)
[2025-02-12 18:50] LABS: Magnesium 1.9 mg/dl (1.7-2.4)
[2025-02-12 19:27] LABS: Influenza A virus by PCR Negative (Neg); Influenza B virus by PCR Negative (Neg); RSV by PCR Negative (Neg); SARS CoV2 RNA(COVID-19) Ceph NEGATIVE (Negative)
--- NOTE | 2025-02-12 19:29 | Emergency Department Note ---
History of Present Illness General Chief complaint: Infection Stated complaint: CHILLS, FEVER, SURGERY WEEK AGO, POSS INFECTION Time Seen by Provider: 02/12/25 18:07 History of Present Illness Provider complaint: Fever and chills Maximum Pain Intensity: 7 69-year-old male presents emergency department for fever and chills. Patient reports symptoms began yesterday. Reports a Tmax of 1-2.6. Patient states he recently had neck surgery by Dr. Reyes. He reports no sore throat, no dysuria, no abdominal pain, no cough, no chest pain, no difficulty breathing. He reports no neck pain. Home Medications Medication Instructions Recorded Confirmed Type fluticasone propionate 50 1 spray intranasal BID PRN allergy 03/07/21 02/08/25 Rx mcg/actuation nasal symptoms 30 days #15.8 mL spray,suspension (Flonase Allergy Relief) albuterol sulfate 90 mcg/actuation 1 inh inhalation QID PRN shortness 09/02/23 02/08/25 Rx aerosol inhaler of breath or wheezing #8.5 grams finasteride 5 mg tablet (Proscar) 5 mg PO QAM #90 tabs 02/01/24 02/08/25 Rx beclomethasone dipropionate 40 1 inh inhalation Q12H PRN 03/11/24 02/08/25 Rx mcg/actuation HFA breath activated Shortness Of Breath Or Wheezing #1 aerosol (Qvar RediHaler) inhaler albuterol sulfate 2.5 mg/3 mL 2.5 mg inhalation Q6H PRN SOB 03/13/24 02/08/25 History (0.083 %) solution for nebulization pregabalin 50 mg capsule (Lyrica) 50 mg PO BID #90 caps 09/17/24 02/08/25 Rx lorazepam 0.5 mg tablet 0.5 mg PO HS PRN sleep #30 tabs 09/28/24 02/08/25 Rx aspirin 81 mg tablet,delayed 81 mg PO QPM 09/30/24 02/08/25 History release (Adult Low Dose Aspirin) telmisartan 20 mg tablet (Micardis) 10 mg PO QAM 09/30/24 02/08/25 History levothyroxine 75 mcg tablet 75 mcg PO QAM #90 tabs 12/29/24 02/08/25 Rx (Synthroid) multivitamin 1 tab PO QAM 01/06/25 02/08/25 History pantoprazole 40 mg tablet,delayed 40 mg PO UD 01/06/25 02/08/25 History release sumatriptan succinate 100 mg tablet 100 mg PO .twice daily PRN 01/19/25 02/08/25 Rx migraine headache #10 tabs cholecalciferol (vitamin D3) 125 125 mcg PO DAILY #30 caps 02/08/25 02/08/25 Rx mcg (5,000 unit) capsule Allergies Allergy/AdvReac Type Severity Reaction Status Date / Time oxycodone [From OxyContin] AdvReac Mild Headache Verified 02/02/25 06:41 Past Med/Surg History Problem List (Updated 02/12/25 @ 19:37 by Antony Mccullough MD) Fever postop (Acute) Cervical spondylosis with radiculopathy Elevated lipoprotein(a) Cervical disc disease Abdominal bruit Aorta ultrasound 10/08/24: No evidence of abdominal aortic aneurysm Cervical plexus neuropathy Atopic dermatitis Sinusitis Right knee DJD Lateral epicondylitis of left elbow Anemia GERD (gastroesophageal reflux disease) Migraine Benign prostatic disease Post-traumatic osteoarthritis of left knee Encounter for pre-operative examination Hypothyroidism Asthma Trigeminal neuralgia Pulsatile tinnitus, right ear Sensorineural hearing loss of both ears HTN (hypertension) (Chronic) Medical History Anemia Chronic Asthma Chronic sinusitis Per records GERD (gastroesophageal reflux disease) Hx History of BPH Hx of migraines Hypertension Hypothyroidism Seizure Per remote records (entered 2020 without further details) Patient denies Trigeminal neuralgia Takes Lyrica Surgical History History of left knee replacement (2021) History of esophagogastroduodenoscopy (EGD) S/P colonoscopy S/P sinus surgery S/P inguinal hernia repair S/P arthroscopic knee surgery left H/O neck surgery ~C5 fusion (2008) Family History Father Myocardial infarction Parkinson disease Mother Hypertension Denies family history of Hearing loss No family history of adverse response to anesthesia No family history of bleeding disorder Heart disease Allergies Cancer Stroke Asthma Social History Smoking Status: Never smoker Second Hand Exposure: No; Do You Dip or Chew Tobacco: No; Hx Alcohol Use: Yes Alcohol Intake Frequency: 2-3 x/Week Hx Substance Use: No Preferred Language: Luxembourger Communication Ability: Effective Visual Impairment: Limited Hearing Ability: Normal Geospatial Intelligence Analyst Required: No Beliefs That Will Affect Care: None marital status: Current Living Situation: Spouse current occupational status: retired Feels Safe at Home: Yes caffeine: Yes Dental Care, Regularly: Yes Physical Activity Frequency: 1-2 Times per Week Seatbelt Use: always Assistive Devices: Walker Physical Exam Vital Signs Vital Signs - 24 hr 02/12/25 17:18 02/12/25 18:34 02/12/25 19:08 Temperature 37.4 C 37.5 C Temperature Source Temporal Artery Scan Oral Pulse Rate 102 H 85 Pulse Rate [Apical] 87 Respiratory Rate 18 18 Respiratory Effort / Characteristics Non-Labored Respiratory Depth Normal Blood Pressure 102/67 Blood Pressure [Right Arm] 122/75 Blood Pressure Mean 78 Blood Pressure Mean [Right Arm] 90 Pulse Oximetry 97 99 Oxygen Delivery Method Room Air Room Air Sepsis Recent Fever Within 48 Hours Yes Sepsis New/Unexplained Change in Mental Status No Sepsis Action Taken by Nursing No Action Required Physical Exam GENERAL: He is oriented to person, place, and time. He appears well-developed and well-nourished. He does not appear distressed. HENT: Exam performed. - Head: Normocephalic and atraumatic. - Mouth/Throat: The oropharynx is clear and moist. No trismus in the jaw. No dental abscesses or uvula swelling. No oropharyngeal exudate or tonsillar abscesses. EYES: Conjunctivae and EOM are normal. Pupils are equal, round, and reactive to light. Right eye exhibits no discharge. Left eye exhibits no discharge. No scleral icterus. NECK: [place] J collar in place. [place] J was removed and the patient's surgical incision on posterior neck appears clean and dry. There is no surrounding erythema or discharge. [place] J catheter was placed back on the patient after the neck was examined. CV: Normal rate, regular rhythm, normal heart sounds and intact distal pulses. There is no peripheral edema. Palpable radial pulses bue. PULM/CHEST: Effort normal and breath sounds normal. No respiratory distress. No stridor. He has no wheezes. He has no rales. ABD: The abdomen is soft. NEURO: Motor and sensation grossly intact. Course Course 1806: The patient was evaluated in room D1A. A complete history and physical exam was performed Cardiac monitoring: An order was placed for continuous cardiac monitoring. The monitor shows a rate of 100 with sinus rhythm interpreted by me 1859: Labs show leukocytosis of 17.93. Lactic acid within normal limits. Procalcitonin within normal limits. Discussed case with Dr. Reyes patient's surgeon. Dr. Reyes stated that he saw the patient in the office yesterday and his incision was clean and dry to him also. We decided that if the patient's COVID and flu are negative then we would admit with IV antibiotics. 193: Vital signs stable. COVID RSV influenza negative. Patient be treated with Rocephin and [facility]. Administered Medications Discontinued Medications Sodium Chloride (Nss) 1,000 mls @ 999 mls/hr IV .Q1H1M ONE Stop: 02/12/25 19:15 Last Admin: 02/12/25 18:47 Dose: 999 mls/hr Documented By: QGV Medical Decision Making Laboratory Data Attestation: I reviewed the patient's lab results. 02/12/25 17:40 02/12/25 17:40 Lab Results 02/12/25 02/12/25 02/12/25 Range/Units 17:40 18:16 18:32 WBC 17.93 H (4.8-10.8) K/ul RBC 4.12 L (4.70-6.10) M/uL Hgb 11.9 L (14.0-18.0) g/dl Hct 35.2 L (42.0-52.0) % MCV 85.4 (80.0-100.0) fL MCH 28.9 (25.0-34.0) pg MCHC 33.8 (32.0-36.0) g/dL RDW Std Deviation 39.0 (36.4-46.3) fL RDW Coeff of Terry 12.7 (11.5-14.5) % Plt Count 294 (130-400) K/uL MPV 11.0 (9.4-12.4) fL Immature Gran % (Auto) 0.6 % Neut % (Auto) 76.0 % Lymph % (Auto) 10.8 % Dyer % (Auto) 11.0 % Eos % (Auto) 1.1 % Baso % (Auto) 0.5 % Neut # (Auto) 13.64 H (1.40-6.50) K/uL Lymph # (Auto) 1.93 (1.20-3.40) K/uL Dyer # (Auto) 1.98 H (0.11-0.59) K/uL Eos # (Auto) 0.19 (0.00-0.50) K/uL Baso # (Auto) 0.09 (0.00-0.20) K/uL Immature Gran # (Auto) 0.10 (0.01-0.20) K/uL Sodium 134 L (136-145) mmol/L Potassium 3.8 (3.5-5.1) mmol/L Chloride 99 (98-107) mmol/L Carbon Dioxide 30 (21-32) mmol/L Anion Gap 5 (3-11) BUN 18 (6-23) mg/dl Creatinine 1.00 (0.6-1.4) mg/dl Est Cr Clr Drug Dosing 59.6 ml/min eGFR 81.98 BUN/Creatinine Ratio 18.0 (10-20) Glucose 98 (70-99(Fasting)) mg/dl Lactate 0.7 (0.4-2.0) mmol/L Calcium 8.6 (8.6-10.3) mg/dl Magnesium 1.9 (1.7-2.4) mg/dl Total Bilirubin 0.6 (0.2-1.0) mg/dl AST 15 (13-39) U/L ALT 10 (7-52) U/L Alkaline Phosphatase 57 (34-104) U/L Troponin I High Sens 5.3 (0-20) pg/ml Total Protein 7.1 (6.0-8.3) gm/dl Albumin 3.8 (3.4-5.0) gm/dl Globulin 3.3 (2.5-4.0) gm/dl Albumin/Globulin Ratio 1.2 (0.9-2) Procalcitonin 0.10 (0-0.5) ng/ml SARS-CoV-2 (PCR) (Negative) Influenza Type A (PCR) (Neg) Influenza Type B (PCR) (Neg) RSV (RT-PCR) (Neg) 02/12/25 Range/Units 18:35 WBC (4.8-10.8) K/ul RBC (4.70-6.10) M/uL Hgb (14.0-18.0) g/dl Hct (42.0-52.0) % MCV (80.0-100.0) fL MCH (25.0-34.0) pg MCHC (32.0-36.0) g/dL RDW Std Deviation (36.4-46.3) fL RDW Coeff of Terry (11.5-14.5) % Plt Count (130-400) K/uL MPV (9.4-12.4) fL Immature Gran % (Auto) % Neut % (Auto) % Lymph % (Auto) % Dyer % (Auto) % Eos % (Auto) % Baso % (Auto) % Neut # (Auto) (1.40-6.50) K/uL Lymph # (Auto) (1.20-3.40) K/uL Dyer # (Auto) (0.11-0.59) K/uL Eos # (Auto) (0.00-0.50) K/uL Baso # (Auto) (0.00-0.20) K/uL Immature Gran # (Auto) (0.01-0.20) K/uL Sodium (136-145) mmol/L Potassium (3.5-5.1) mmol/L Chloride (98-107) mmol/L Carbon Dioxide (21-32) mmol/L Anion Gap (3-11) BUN (6-23) mg/dl Creatinine (0.6-1.4) mg/dl Est Cr Clr Drug Dosing ml/min eGFR BUN/Creatinine Ratio (10-20) Glucose (70-99(Fasting)) mg/dl Lactate (0.4-2.0) mmol/L Calcium (8.6-10.3) mg/dl Magnesium (1.7-2.4) mg/dl Total Bilirubin (0.2-1.0) mg/dl AST (13-39) U/L ALT (7-52) U/L Alkaline Phosphatase (34-104) U/L Troponin I High Sens (0-20) pg/ml Total Protein (6.0-8.3) gm/dl Albumin (3.4-5.0) gm/dl Globulin (2.5-4.0) gm/dl Albumin/Globulin Ratio (0.9-2) Procalcitonin (0-0.5) ng/ml SARS-CoV-2 (PCR) NEGATIVE (Negative) Influenza Type A (PCR) Negative (Neg) Influenza Type B (PCR) Negative (Neg) RSV (RT-PCR) Negative (Neg) Imaging Data Attestation: I personally reviewed and interpreted this imaging study as follows: My Impression: Chest x-ray negative. Airway clear. No pneumothorax. No consolidation. No cardiomegaly or cephalization.. No free air under the diaphragm. No fractures of the skeletal structures. Radiologist's Impression: Chest X-Ray 02/12/25 17:23 Clinical History: Weakness Technique: A frontal view of the chest was obtained Comparison is made to the prior examination dated 02/03/2025 Findings: There are no confluent pulmonary infiltrates. The heart size is within normal limits. No pleural effusion or pneumothorax is seen. There is no definite pulmonary nodule. No fracture is noted. There is an unchanged fusion of the cervical and upper thoracic spine Impression: No active disease Electronically signed by Yair Rincon 02-12-2025 6:20 PM [facility] Narrative 1807: The patient was evaluated in room D1A. A complete history and physical exam was performed Cardiac monitoring: An order was placed for continuous cardiac monitoring. The monitor shows a rate of 100 with sinus rhythm interpreted by me 1859: Labs show leukocytosis of 17.93. Lactic acid within normal limits. Procalcitonin within normal limits. Discussed case with Dr. Reyes patient's surgeon. Dr. Reyes stated that he saw the patient in the office yesterday and his incision was clean and dry to him also. We decided that if the patient's COVID and flu are negative then we would admit with IV antibiotics. 1936: Vital signs stable. COVID RSV influenza negative. Patient be treated with Rocephin and [facility] Impression & Plan Fever postop Discharge Plan Visit Data Chief Complaint: Infection Stated Complaint: CHILLS, FEVER, SURGERY WEEK AGO, POSS INFECTION ED Provider: Antony Mccullough Discharge Problem: Fever postop Patient Disposition: Admitted As Inpatient Condition: Fair Forms Stand Alone Forms: My [facility] Prescriptions Prescriptions: No Action albuterol sulfate 90 mcg/actuation HFA aerosol inhaler 1 inh inhalation QID PRN (Reason: shortness of breath or wheezing) Qty: 8.5 3RF finasteride [Proscar] 5 mg tablet 5 mg PO QAM Qty: 90 3RF pregabalin [Lyrica] 50 mg capsule 50 mg PO BID Qty: 90 5RF lorazepam 0.5 mg tablet 0.5 mg PO HS PRN (Reason: sleep) Qty: 30 5RF levothyroxine [Synthroid] 75 mcg tablet 75 mcg PO QAM Qty: 90 3RF cholecalciferol (vitamin D3) 125 mcg (5,000 unit) capsule 125 mcg PO DAILY Qty: 30 0RF Rx Instructions: Dr. Reyes told pt to start OTC. 02/08/25. fluticasone propionate [Flonase Allergy Relief] 50 mcg/actuation spray,suspension 1 spray intranasal BID PRN (Reason: allergy symptoms) 30 Days Qty: 15.8 8RF Qvar RediHaler 40 mcg/actuation HFA aerosol breath activated 1 inh INHALATION Q12H PRN (Reason: Shortness Of Breath Or Wheezing) Qty: 1 5RF sumatriptan succinate 100 mg tablet 100 mg PO .twice daily PRN (Reason: migraine headache) Qty: 10 5RF Rx Instructions: do not exceed 2 doses per 24 hrs albuterol sulfate 2.5 mg /3 mL (0.083 %) solution for nebulization 2.5 mg inhalation Q6H PRN (Reason: SOB) aspirin [Adult Low Dose Aspirin] 81 mg tablet,delayed release (DR/EC) 81 mg PO QPM telmisartan [Micardis] 20 mg tablet 10 mg PO QAM multivitamin Tablet 1 tab PO QAM pantoprazole 40 mg tablet,delayed release (DR/EC) 40 mg PO UD Referrals Referrals: Conrado Connell MD [Primary Care Provider] -
[2025-02-12] MEDS ORDERED: VANCOMYCIN CONSULT ACTIVE PRN (19:30)
[2025-02-12 19:41] LABS: Appearance Urine Clear (Clear); Bilirubin Urine Negative (Negative); Blood Urine Negative (Negative); Color Urine Yellow; Glucose Urine UA Negative (Negative); Ketones Urine Negative (Negative); Leukocyte Esterase Urine Negative (Negative); Nitrite Urine Negative (Negative); Protein Urine Negative (Negative); Specific Gravity Urine 1.013 (1.000-1.030); Urobilinogen Urine Negative (Negative)
[2025-02-12] MEDS: cefTRIAXone SODIUM 2,000 MG/50 ML BAG IV STA (19:54)
--- NOTE | 2025-02-12 20:15 | History & Physical Report ---
Date of Service February 12, 2025 Assessment & Plan (1) Fever postop: (2) Cervical spondylosis with radiculopathy: Plan 69 yo male PMHx GERD, osteoarthritis, hypothyroidism, HTN, hearing loss, anemia, BPH, POD-10 from posterior cervical decompression and fusion with fever. #Post-op fever subjective and measured fever Tmax 101.2 leukocytosis w/ left shift present, improved from prior labs continue ceftriaxone, vancomycin BCx drawn, follow results Follow AM labs Ortho spine consult - Dr. Reyes will see in am #Chronic Conditions GERD - continue pantoprazole HTN - continue ARB BPH - continue finasteride Hypothyroidism - continue Synthroid Mental Health/Sleep - continue PRN Ativan FENGI: regular diet, s/p 1L NSS Code status: Full DVT prophylaxis: Low risk, ambulation Isolation: none Disposition: med/surg History of Present Illness Primary Care Provider: Conrado Connell MD 69 yo male PMHx GERD, osteoarthritis, hypothyroidism, HTN, hearing loss, anemia, BPH, POD-10 from posterior cervical decompression and fusion with fever. Denies sore throat, dysuria, abd pain, cough, CP, SOB, neck pain. No other complaints. Had episode of night sweats, soaking sheets. Measured fever to 101.2. ED course: 1L NSS 1 dose CTX Vanc consult placed Labs reveal: leukocytosis, improved from prior; mild hyponatremia. Otherwise, normal. Allergies Allergy/AdvReac Type Severity Reaction Status Date / Time milk Allergy Verified 02/15/25 17:03 Home Medications Medication Instructions Recorded Confirmed Type fluticasone propionate 50 1 spray intranasal BID PRN allergy 03/07/21 02/12/25 Rx mcg/actuation nasal symptoms 30 days #15.8 mL spray,suspension (Flonase Allergy Relief) albuterol sulfate 90 mcg/actuation 1 inh inhalation QID PRN shortness 09/02/23 02/12/25 Rx aerosol inhaler of breath or wheezing #8.5 grams finasteride 5 mg tablet (Proscar) 5 mg PO QAM #90 tabs 02/01/24 02/12/25 Rx beclomethasone dipropionate 40 1 inh inhalation Q12H PRN 03/11/24 02/12/25 Rx mcg/actuation HFA breath activated Shortness Of Breath Or Wheezing #1 aerosol (Qvar RediHaler) inhaler albuterol sulfate 2.5 mg/3 mL 2.5 mg inhalation Q6H PRN SOB 03/13/24 02/12/25 History (0.083 %) solution for nebulization pregabalin 50 mg capsule (Lyrica) 50 mg PO BID #90 caps 09/17/24 02/12/25 Rx lorazepam 0.5 mg tablet 0.5 mg PO HS PRN sleep #30 tabs 09/28/24 02/12/25 Rx aspirin 81 mg tablet,delayed 81 mg PO QPM 09/30/24 02/12/25 History release (Adult Low Dose Aspirin) telmisartan 20 mg tablet (Micardis) 10 mg PO QAM 09/30/24 02/12/25 History levothyroxine 75 mcg tablet 75 mcg PO QAM #90 tabs 12/29/24 02/12/25 Rx (Synthroid) multivitamin 1 tab PO QAM 01/06/25 02/12/25 History pantoprazole 40 mg tablet,delayed 40 mg PO DAILY 01/06/25 02/12/25 History release cholecalciferol (vitamin D3) 125 125 mcg PO DAILY #30 caps 02/08/25 02/12/25 Rx mcg (5,000 unit) capsule methylprednisolone 4 mg tablets in 0 mg PO DAILY 02/12/25 02/12/25 History a dose pack oxycodone 5 mg tablet 5 mg PO Q6H PRN Pain 02/12/25 02/12/25 History sumatriptan succinate 100 mg tablet 100 mg PO BID PRN migraine headache 02/12/25 02/12/25 History Past Med/Surg History Problem List (Updated 02/15/25 @ 13:40 by Constance Delgado MD) Infection of cervical spine MSSA bacteremia Fever postop (Acute) Cervical spondylosis with radiculopathy Elevated lipoprotein(a) Cervical disc disease Abdominal bruit Aorta ultrasound 10/08/24: No evidence of abdominal aortic aneurysm Cervical plexus neuropathy Atopic dermatitis Sinusitis Right knee DJD Lateral epicondylitis of left elbow Anemia GERD (gastroesophageal reflux disease) Migraine Benign prostatic disease Post-traumatic osteoarthritis of left knee Encounter for pre-operative examination Hypothyroidism Asthma Trigeminal neuralgia Pulsatile tinnitus, right ear Sensorineural hearing loss of both ears HTN (hypertension) (Chronic) Medical History Anemia Chronic Asthma Chronic sinusitis Per records GERD (gastroesophageal reflux disease) Hx History of BPH Hx of migraines Hypertension Hypothyroidism Seizure Per remote records (entered 2020 without further details) Patient denies Trigeminal neuralgia Takes Lyrica Surgical History History of left knee replacement (2021) History of esophagogastroduodenoscopy (EGD) S/P colonoscopy S/P sinus surgery S/P inguinal hernia repair S/P arthroscopic knee surgery left H/O neck surgery ~C5 fusion (2008) Family History Father Myocardial infarction Parkinson disease Mother Hypertension Denies family history of Hearing loss No family history of adverse response to anesthesia No family history of bleeding disorder Heart disease Allergies Cancer Stroke Asthma Social History Smoking Status: Never smoker Second Hand Exposure: No; Do You Dip or Chew Tobacco: No; Hx Alcohol Use: Yes Alcohol Intake Frequency: 2-3 x/Week Hx Substance Use: No Preferred Language: Azeri Communication Ability: Effective Visual Impairment: Limited Hearing Ability: Normal Coffee Urn Attendant Required: No Beliefs That Will Affect Care: None marital status: Current Living Situation: Spouse current occupational status: retired Feels Safe at Home: Yes caffeine: Yes Dental Care, Regularly: Yes Physical Activity Frequency: 1-2 Times per Week Seatbelt Use: always Assistive Devices: Walker Review of Systems Review of Systems: reviewed, per HPI Physical Exam Physical Exam: Constitutional: well-appearing, no acute distress HEENT: NCAT, no conjunctival injection, cervical collar in place CV: extremities well-perfused, no LE edema Resp: no increased work of breathing GI: nondistended MSK: C collar in place Skin: warm, dry, no rash appreciated Neuro: alert, oriented, no focal neurologic deficit appreciated Results & Data Results & Data Vital Signs (Past 12 Hours) Vital Signs Temp Pulse Pulse Resp BP BP Pulse Ox 02/12/25 19:08 85 02/12/25 18:34 37.5 C 87 18 122/75 99 02/12/25 17:18 37.4 C 102 H 18 102/67 97 O2 Del Method 02/12/25 19:08 02/12/25 18:34 Room Air 02/12/25 17:18 Room Air Supervising Physician Co-Signing Physician Notes I personally saw and examined the patient. I independently reviewed the labs, EKG, imaging, problem list, medication list, past medical history and family history. I verified all millard points and agree with resident physician Dr Fred Gonzales, DO with the following exceptions and/or additions: 69 year old male presents to the ER with post operative fever from ACDF on February 02. No respiratory, gastrointestinal or urinary symptoms. Ongoing neck pain but no worse since post operative course and no radicular weakness or change in sensation or pain. O/E HS RRR, no murmurs, Chest CTAB, Abdo SNT, post operative site appears clean, dry, intact, no areas of cellulitis A/P Post operative fever - no other source of infection from history. Vancomycin + ceftriaxone. Follow up blood cultures. Discussed with Dr Reyes on admission and will defer any neck imaging upon further review of ortho spine in the morning. Resident Activity Tracking Resident Involvement: Resident Care Provided Care Provided: Adult Hospital Medicine
[2025-02-12] MEDS: VANCOMYCIN HCL 1,250 MG in SODIUM CHLORIDE 0.9% 500 ML IV ONE (21:12)
[2025-02-12] MEDS ORDERED: ALBUTEROL HFA 8 GM INHALER INH PRN (22:37)
[2025-02-12] MEDS ORDERED: FLUTICASONE PROPIONATE NA SPR 16 GM BTL PRN (22:37)
[2025-02-12] MEDS: ACETAMINOPHEN 500 MG TAB PO PRN (23:12)
[2025-02-12] MEDS: PREGABALIN 50 MG CAP PO SCH (23:35)
[2025-02-13] MEDS: oxyCODONE HCL IR 5 MG TAB (IMMEDIATE RELEASE) PO PRN (00:47)
[2025-02-13] MEDS: LEVOTHYROXINE SODIUM 75 MCG TABLET PO SCH (05:46)
--- NOTE | 2025-02-13 08:17 | Orthopedic Consultation ---
Date of Consultation February 13, 2025 Assessment & Plan (1) Fever postop: At this time we will watch him very closely. A very low threshold to perform an I&D of the cervical incision. We will see how he progresses over the next 24 hours and await for blood cultures certainly would continue IV antibiotics. History of Present Illness Reason for Consultation: Fever chills Attending Physician: Khanh Thomson History of Present Illness This is a 61-year-old male well-known to [place] status post posterior cervical decompression fusion. He presents yesterday with fever and chills. This morning is comfortable. Does not describe any cervicalgia. His radicular symptoms have improved. He has been up and ambulating. Allergies Allergy/AdvReac Type Severity Reaction Status Date / Time No Known Allergies Allergy Verified 02/12/25 19:54 Home Medications Medication Instructions Recorded Confirmed Type fluticasone propionate 50 1 spray intranasal BID PRN allergy 03/07/21 02/12/25 Rx mcg/actuation nasal symptoms 30 days #15.8 mL spray,suspension (Flonase Allergy Relief) albuterol sulfate 90 mcg/actuation 1 inh inhalation QID PRN shortness 09/02/23 02/12/25 Rx aerosol inhaler of breath or wheezing #8.5 grams finasteride 5 mg tablet (Proscar) 5 mg PO QAM #90 tabs 02/01/24 02/12/25 Rx beclomethasone dipropionate 40 1 inh inhalation Q12H PRN 03/11/24 02/12/25 Rx mcg/actuation HFA breath activated Shortness Of Breath Or Wheezing #1 aerosol (Qvar RediHaler) inhaler albuterol sulfate 2.5 mg/3 mL 2.5 mg inhalation Q6H PRN SOB 03/13/24 02/12/25 History (0.083 %) solution for nebulization pregabalin 50 mg capsule (Lyrica) 50 mg PO BID #90 caps 09/17/24 02/12/25 Rx lorazepam 0.5 mg tablet 0.5 mg PO HS PRN sleep #30 tabs 09/28/24 02/12/25 Rx aspirin 81 mg tablet,delayed 81 mg PO QPM 09/30/24 02/12/25 History release (Adult Low Dose Aspirin) telmisartan 20 mg tablet (Micardis) 10 mg PO QAM 09/30/24 02/12/25 History levothyroxine 75 mcg tablet 75 mcg PO QAM #90 tabs 12/29/24 02/12/25 Rx (Synthroid) multivitamin 1 tab PO QAM 01/06/25 02/12/25 History pantoprazole 40 mg tablet,delayed 40 mg PO DAILY 01/06/25 02/12/25 History release cholecalciferol (vitamin D3) 125 125 mcg PO DAILY #30 caps 02/08/25 02/12/25 Rx mcg (5,000 unit) capsule methylprednisolone 4 mg tablets in 0 mg PO DAILY 02/12/25 02/12/25 History a dose pack oxycodone 5 mg tablet 5 mg PO Q6H PRN Pain 02/12/25 02/12/25 History sumatriptan succinate 100 mg tablet 100 mg PO BID PRN migraine headache 02/12/25 02/12/25 History Patient History Medical History Anemia Chronic Asthma Chronic sinusitis Per records GERD (gastroesophageal reflux disease) Hx History of BPH Hx of migraines Hypertension Hypothyroidism Seizure Per remote records (entered 2020 without further details) Patient denies Trigeminal neuralgia Takes Lyrica Surgical History History of left knee replacement (2021) History of esophagogastroduodenoscopy (EGD) S/P colonoscopy S/P sinus surgery S/P inguinal hernia repair S/P arthroscopic knee surgery left H/O neck surgery ~C5 fusion (2008) Family History Father Myocardial infarction Parkinson disease Mother Hypertension Denies family history of Hearing loss No family history of adverse response to anesthesia No family history of bleeding disorder Heart disease Allergies Cancer Stroke Asthma Social History Smoking Status: Never smoker Second Hand Exposure: No; Do You Dip or Chew Tobacco: No; Hx Alcohol Use: Yes Alcohol Intake Frequency: 2-3 x/Week Hx Substance Use: No Preferred Language: Ecuadorean Communication Ability: Effective Visual Impairment: Limited Hearing Ability: Normal Maintainer Central Office Required: No Beliefs That Will Affect Care: None marital status: Current Living Situation: Spouse current occupational status: retired Feels Safe at Home: Yes Safety Concerns: Feels Safe At This Time caffeine: Yes Dental Care, Regularly: Yes Physical Activity Frequency: 1-2 Times per Week Seatbelt Use: always Assistive Devices: None Physical Exam Physical Exam: On exam incision is healing. There is some swelling at the distal half of the incision. This was not present in the office. Modest erythema around the wound edges. Neurologically intact. Results & Data Vital Signs (Past 12 Hours) Vital Signs Temp Pulse Resp BP Pulse Ox O2 Del Method 02/13/25 07:54 37.6 C H 68 18 119/75 96 Room Air 02/12/25 22:10 37.4 C 74 18 151/67 H 97 Room Air 02/12/25 21:55 36.8 C Room Air
[2025-02-13 08:25] LABS: Basophils # (auto) 0.12 K/uL (0.00-0.20); Basophils % (auto) 0.6 %; Eosinophils # (auto) 0.51 K/uL (0.00-0.50); Eosinophils % (auto) 2.6 %; Hematocrit (blood only) 32.4 % (42.0-52.0); Hemoglobin 10.8 g/dl (14.0-18.0); Immature Granulocytes # (auto) 0.09 K/uL (0.01-0.20); Immature Granulocytes % (auto) 0.5 %; Lymphocytes # (auto) 1.15 K/uL (1.20-3.40); Lymphocytes % (auto) 5.9 %; Mean Corpuscular Hemoglobin 28.6 pg (25.0-34.0); Mean Corpuscular Hgb Conc 33.3 g/dL (32.0-36.0); Mean Corpuscular Volume 85.7 fL (80.0-100.0); Mean Platelet Volume 11.6 fL (9.4-12.4); Monocytes # (auto) 1.95 K/uL (0.11-0.59); Monocytes % (auto) 10.1 %; Neutrophils # (auto) 15.51 K/uL (1.40-6.50); Neutrophils % (auto) 80.3 %; Platelet Count 254 K/uL (130-400); RDW Coefficient of Variation 12.9 % (11.5-14.5); RDW Standard Deviation 40.5 fL (36.4-46.3); Red Blood Count 3.78 M/uL (4.70-6.10); White Blood Count 19.33 K/ul (4.8-10.8)
[2025-02-13] MEDS: SUMAtriptan succinate 100 MG TAB PO PRN (08:47)
[2025-02-13] MEDS: PANTOprazole 40 MG TAB PO SCH (08:48)
[2025-02-13] MEDS: LOSARTAN POTASSIUM 25 MG TAB PO SCH (08:48)
[2025-02-13] MEDS: FINASTERIDE 5 MG TAB PO SCH (08:48)
[2025-02-13] MEDS: MULTIVITAMIN TAB PO SCH (08:48)
[2025-02-13] MEDS: CHOLECALCIFEROL 125 MCG (5,000 UNITS) TAB PO SCH (08:48)
--- NOTE | 2025-02-13 10:08 | Hospitalist Progress Note ---
Date of Service February 13, 2025 Assessment & Plan (1) Fever postop: Plan 69 yo male PMHx GERD, osteoarthritis, hypothyroidism, HTN, hearing loss, anemia, BPH, POD-11 from posterior cervical decompression and fusion with fever. #Post-op fever subjective and measured fever Tmax 101.2 leukocytosis w/ left shift present, uptrended from 5/2 labs continue ceftriaxone, vancomycin BCx drawn, follow results (pending at present) Orthospine consult - appreciate Dr. Reyes input, he will follow, no immediate plans for surgical intervention at this time #Constipation Colace 100mg BID Miralax 17g po daily #Chronic Conditions GERD - continue pantoprazole HTN - continue ARB BPH - continue finasteride Hypothyroidism - continue Synthroid Mental Health/Sleep - continue PRN Ativan FENGI: regular diet, s/p 1L NSS Code status: Full DVT prophylaxis: Low risk, ambulation Isolation: none Disposition: med/surg AM labs ordered. Plan of care d/w Dr. Thomson who is in agreement. Admission and Anticipated Discharge Date Admission Date: February 12, 2025 Ailin Parnell is a 69 yo M admitted for postoperative fever. He is pod#11 from a posterior cervical decompression fusion. He was seen by Dr. Reyes, monitoring for now, no immediate plans for I&D. He reports persistent pain, 7/10 in his neck. He denies radicular symptoms. Low grade fever of 99F this AM. No chest pain or dyspnea. Denies symptoms, respiratory symptoms, or abd pain. He is requesting a dose of oxycodone for pain. He does endorse constipation, reporting that the colace doesn't work and he needs miralax. Last BM was 2 days ago. Review of Systems 2 Review of Systems: All systems reviewed and are unremarkable except as noted in HPI and below. Denies chills, fatigue, headache, nasal congestion, sore throat, cough, chest pain, shortness of breath, palpitations, orthopnea, PND, abdominal pain, n/v/d, constipation, dysuria, hematuria, frequency, back pain, easy bruising or bleeding, skin lesions or rashes. Physical Exam 2 Physical Exam: GENERAL: 69 yo well-nourished M. A&O x3. No distress. LUNGS: Clear to auscultation bilaterally. No W/R/R. CARDIOVASCULAR: Regular rate and rhythm. NEUROLOGIC: No focal neurological deficits. CN II-XII grossly intact. SKIN: Posterior cervical surgical incision appears to be healing well, no erythema, tenderness or active drainage/bleeding. Results & Data Results & Data Vital Signs (Past 12 Hours) Vital Signs Temp Pulse Resp BP Pulse Ox O2 Del Method 02/13/25 07:54 37.6 C H 68 18 119/75 96 Room Air 02/12/25 22:10 37.4 C 74 18 151/67 H 97 Room Air Laboratory Results 02/13/25 07:49 PG Care Time/CCT Total # of Minutes Spent Total Time Spent with Patient: Total time spent is greater than 50% in coordination of care (as documented) at patient's floor/unit and/or counseling patient: 37 minutes Coding Level of Care Code 67249 SUB INP/OBS CARE 2/35MIN Diagnoses Fever postop R50.82
[2025-02-13] MEDS: DOCUSATE SODIUM 100 MG CAP PO SCH (10:52)
[2025-02-13] MEDS: POLYETHYLENE (MIRALAX) 17 GM PACK PO SCH (10:52)
[2025-02-13 11:45] LABS: BUN Creatinine Ratio 15.1 (10-20); C Reactive Protein 17.54 mg/dl (0-0.5); Calcium 8.4 mg/dl (8.6-10.3); Creatinine Clr Calc Pharmacy 63.8 ml/min; Potassium 3.6 mmol/L (3.5-5.1)
[2025-02-13 12:00] LABS: A calco-baum cmplx NotReported Not Detected (NotDetected); Bact fragilis Not Reported Not Detected (NotDetected); Blood Culture Id Panel See PCR Comment (NotDetected); C auris Not Reported Not Detected (NotDetected); Calbicans Not Reported Not Detected (NotDetected); Candida glabrata Not Reported Not Detected (NotDetected); Candida krusei Not Reported Not Detected (NotDetected); Cneoformans/gatti Not Reported Not Detected (NotDetected); Cparapsilosis Not Reported Not Detected (NotDetected); Ctropicalis Not Reported Not Detected (NotDetected); E cloacae compx Not Reported Not Detected (NotDetected); Efaecalis Not Reported Not Detected (NotDetected); Efaecium Not Reported Not Detected (NotDetected); Enterobacterales Not Reported Not Detected (NotDetected); Escherichia coli Not Reported Not Detected (NotDetected); H influenzae Not Reported Not Detected (NotDetected); K aerogenes Not Reported Not Detected (NotDetected); Koxytoca Not Reported Not Detected (NotDetected); Kpneumoniae grp Not Reported Not Detected (NotDetected); Lmonocyt Not Reported Not Detected (NotDetected); N meningitidis Not Reported Not Detected (NotDetected); P aeruginosa Not Reported Not Detected (NotDetected); Proteus spp Not Reported Not Detected (NotDetected); Salmonella spp Not Reported Not Detected (NotDetected); Staph lugdunensis Not Reported Not Detected (NotDetected); Staph spp. Not Reported DETECTED (NotDetected); Staphaureus Not Reported DETECTED (NotDetected); Staphepi Not Reported Not Detected (NotDetected); Stenmaltophilia Not Reported Not Detected (NotDetected); Strep agal(GrpB) Not Reported Not Detected (NotDetected); Strep pneum Not Reported Not Detected (NotDetected); Strep pyog (GrpA) Not Reported Not Detected (NotDetected); Strep spp Not Reported Not Detected (NotDetected); mecAC+MREJ Resistant Gene MRSA Not Detected (NotDetected)
[2025-02-13 12:30] LABS: Staphylococcus spp. DETECTED (NotDetected)
--- NOTE | 2025-02-13 13:43 | Pharmacy Report ---
Pharmacy PK ABX Note - Date of Service February 13, 2025 - Assessment and Plan Assessment 69 year old M receiving Vancomycin and Ceftriaxone for empiric treatment of bacteremia. * Day #2 of antimicrobial therapy. * Afebrile. WBCs 19.3k today. SCr 0.93 mg/dL. Blood cultures growing MSSA. Provider would like to continue vancomycin for another day. Plan Vancomycin * Loading dose: 1250 mg IV x 1 * Maintenance dose: 750 mg IV every 12 hours * Regimen is predicted to achieve target AUC/NAZ of 400-600 mg/L.hr * Will order a level if vancomycin therapy extends beyond 48 hours Ceftriaxone * 2000 mg IV every 24 hours Pharmacy will continue to follow and will adjust dose/frequency as necessary. Thank you. Pharmacy has transitioned to AUC monitoring for vancomycin. AUC/NAZ is the preferred PK/PD target and is associated with decreased risk of nephrotoxicity c ompared to traditional trough targets.
[2025-02-13] MEDS: VANCOMYCIN 750 MG in SODIUM CHLORIDE 0.9% 250 ML IV SCH (14:23)
[2025-02-13] MEDS: ONDANSETRON ORAL SOLN 0.8 MG/1 ML PO PRN (18:09)
[2025-02-13] MEDS: cefTRIAXone SODIUM 2,000 MG/50 ML BAG IV SCH (19:32)
[2025-02-13] MEDS: ASPIRIN 81 MG ECTAB PO SCH (20:39)
[2025-02-13] MEDS: LORazepam 0.5 MG TAB PO PRN (20:43)
[2025-02-14] MEDS: ONDANSETRON INJ 2 MG/ML 2 ML VIAL IV PRN (01:34)
[2025-02-14 06:52] LABS: Basophils # (auto) 0.06 K/uL (0.00-0.20); Basophils % (auto) 0.3 %; Eosinophils # (auto) 0.25 K/uL (0.00-0.50); Eosinophils % (auto) 1.3 %; Hematocrit (blood only) 30.2 % (42.0-52.0); Hemoglobin 10.1 g/dl (14.0-18.0); Immature Granulocytes # (auto) 0.11 K/uL (0.01-0.20); Immature Granulocytes % (auto) 0.6 %; Lymphocytes # (auto) 1.23 K/uL (1.20-3.40); Lymphocytes % (auto) 6.2 %; Mean Corpuscular Hemoglobin 28.6 pg (25.0-34.0); Mean Corpuscular Hgb Conc 33.4 g/dL (32.0-36.0); Mean Corpuscular Volume 85.6 fL (80.0-100.0); Mean Platelet Volume 11.7 fL (9.4-12.4); Monocytes # (auto) 1.33 K/uL (0.11-0.59); Monocytes % (auto) 6.7 %; Neutrophils # (auto) 16.82 K/uL (1.40-6.50); Neutrophils % (auto) 84.9 %; Platelet Count 234 K/uL (130-400); RDW Coefficient of Variation 12.8 % (11.5-14.5); RDW Standard Deviation 39.8 fL (36.4-46.3); Red Blood Count 3.53 M/uL (4.70-6.10)
[2025-02-14 07:17] LABS: BUN Creatinine Ratio 18.3 (10-20); Calcium 8.3 mg/dl (8.6-10.3); Creatinine Clr Calc Pharmacy 63.8 ml/min; Magnesium 1.8 mg/dl (1.7-2.4); Potassium 3.7 mmol/L (3.5-5.1)
--- NOTE | 2025-02-14 08:59 | History & Physical Bridge Note ---
Date of Service February 14, 2025 History & Physical Bridge Note I have examined the patient, reviewed the History & Physical and in the interval since the performance of the History & Physical I have noted the following changes of clinical significance: no changes noted Patient has blood cultures positive for Staph aureus. Still notable swelling in the nan-incisional area. In light of his clinical presentation and labs I am recommending urgent irrigation and debridement of the cervical spine.
[2025-02-14] MEDS ORDERED: LIDOCAINE 2% 2 ML VIAL/AMP(20MG/ML) INFIL ONE (09:00)
[2025-02-14] MEDS ORDERED: DEXAMETHASONE SOD INJ 4 MG/ML VIAL ONE (09:00)
[2025-02-14] MEDS ORDERED: ROCURONIUM BROMIDE 10 MG/ML 5 ML VIAL IV ONE (09:00)
[2025-02-14] MEDS ORDERED: GLYCOPYRROLATE 0.2 MG/ML VIAL ONE (09:00)
[2025-02-14] MEDS ORDERED: ONDANSETRON INJ 2 MG/ML 2 ML VIAL ONE (09:00)
[2025-02-14] MEDS ORDERED: NEOSTIGMINE METHYLSULFATE 1 MG/ML 10ML VIAL ONE (09:00)
[2025-02-14] MEDS ORDERED: PROPOFOL IV EMULSION 10 MG/ML 20 ML VIAL IV ONE (09:00)
[2025-02-14] MEDS ORDERED: fentaNYL citrate PF 100 MCG/2 ML VIAL ONE ×2 (09:02)
[2025-02-14] MEDS ORDERED: MIDAZOLAM HCL 1 MG/ML 2ML VIAL ONE (09:02)
--- NOTE | 2025-02-14 09:07 | Electrocardiogram Report ---
Test Reason : Blood Pressure : */* mmHG Vent. Rate : 91 BPM Atrial Rate : 91 BPM P-R Int : 182 ms QRS Dur : 88 ms QT Int : 342 ms P-R-T Axes : 60 51 64 degrees QTcB Int : 420 ms Normal sinus rhythm Normal ECG When compared with ECG of 20-Jan-2025 11:21, OK interval has decreased Vent. rate has increased by 33 bpm Confirmed by Mary Davenport (Gilbert) on 02/14/2025 9:07:05 AM Referred By: REFERRED SELF Confirmed By: Mary Davenport
--- NOTE | 2025-02-14 09:19 | Anesthesiology Consultation ---
Date of Service February 14, 2025 Assessment & Plan Chart Review Chart Review: Acceptable Risk for Surgery Consults Requested none History Surgery Operation Date: 02/14/25 10:00 Proposed Procedures p Irrigation and Debridement Cervical Spine - Ian Reyes DO Height/Weight Height: 5 ft 8 in Weight: 59.3 kg Allergies Allergy/AdvReac Type Severity Reaction Status Date / Time milk Allergy Verified 02/13/25 09:31 Medications Home Medications Medication Instructions Recorded Confirmed Last Taken fluticasone propionate 50 1 spray intranasal BID PRN allergy 03/07/21 02/12/25 01/23/25 mcg/actuation nasal symptoms 30 days #15.8 mL spray,suspension (Flonase Allergy Relief) albuterol sulfate 90 mcg/actuation 1 inh inhalation QID PRN shortness 09/02/23 02/12/25 02/01/25 21:00 aerosol inhaler of breath or wheezing #8.5 grams finasteride 5 mg tablet (Proscar) 5 mg PO QAM #90 tabs 02/01/24 02/12/25 02/12/25 beclomethasone dipropionate 40 1 inh inhalation Q12H PRN 03/11/24 02/12/25 02/01/25 21:00 mcg/actuation HFA breath activated Shortness Of Breath Or Wheezing #1 aerosol (Qvar RediHaler) inhaler albuterol sulfate 2.5 mg/3 mL 2.5 mg inhalation Q6H PRN SOB 03/13/24 02/12/25 02/01/25 21:00 (0.083 %) solution for nebulization pregabalin 50 mg capsule (Lyrica) 50 mg PO BID #90 caps 09/17/24 02/12/25 02/12/25 08:00 lorazepam 0.5 mg tablet 0.5 mg PO HS PRN sleep #30 tabs 09/28/24 02/12/25 02/01/25 23:00 aspirin 81 mg tablet,delayed 81 mg PO QPM 09/30/24 02/12/25 02/11/25 release (Adult Low Dose Aspirin) telmisartan 20 mg tablet (Micardis) 10 mg PO QAM 09/30/24 02/12/25 02/12/25 levothyroxine 75 mcg tablet 75 mcg PO QAM #90 tabs 12/29/24 02/12/25 02/12/25 (Synthroid) multivitamin 1 tab PO QAM 01/06/25 02/12/25 02/12/25 pantoprazole 40 mg tablet,delayed 40 mg PO DAILY 01/06/25 02/12/25 02/12/25 release cholecalciferol (vitamin D3) 125 125 mcg PO DAILY #30 caps 02/08/25 02/12/25 02/12/25 mcg (5,000 unit) capsule methylprednisolone 4 mg tablets in 0 mg PO DAILY 02/12/25 02/12/25 02/12/25 a dose pack oxycodone 5 mg tablet 5 mg PO Q6H PRN Pain 02/12/25 02/12/25 Unknown sumatriptan succinate 100 mg tablet 100 mg PO BID PRN migraine headache 02/12/25 02/12/25 Unknown Active Medications Generic Name Dose Route Start Last Admin Trade Name Freq PRN Reason Stop Dose Admin Acetaminophen 1,000 mg 02/12/25 22:32 02/14/25 08:04 Acetaminophen 500 Mg Tab PO 03/14/25 22:31 1,000 mg Q8H PRN Administration Pain or Fever Aspirin 81 mg 02/13/25 21:00 02/13/25 20:39 Aspirin 81 Mg Ectab PO 03/15/25 20:59 81 mg QPM IRENE Administration Docusate Sodium 100 mg 02/13/25 10:15 02/14/25 08:05 Docusate Sodium 100 Mg Cap PO 03/15/25 10:14 Not Given BID IRENE Finasteride 5 mg 02/13/25 09:00 02/14/25 08:05 Finasteride 5 Mg Tab PO 03/15/25 08:59 5 mg QAM IRENE Administration Ceftriaxone Sodium 2,000 mg in 50 mls @ 100 mls/hr 02/13/25 20:00 02/13/25 20:36 Rocephin IV 02/15/25 19:59 Infused Q24H IRENE Infusion Vancomycin HCl 750 mg/ Sodium 265 mls @ 200 mls/hr 02/13/25 14:00 02/14/25 03:54 Chloride IV 02/15/25 13:59 Infused Q12H IRENE Infusion Levothyroxine Sodium 75 mcg 02/13/25 06:30 02/14/25 05:41 Levothyroxine Sodium 75 Mcg Tablet PO 03/15/25 06:29 75 mcg DAILYBB IRENE Administration Lorazepam 0.5 mg 02/12/25 22:37 02/13/25 20:43 Lorazepam 0.5 Mg Tab PO 03/14/25 22:36 0.5 mg HS PRN Administration sleep Losartan Potassium 25 mg 02/13/25 09:00 02/14/25 08:05 Losartan Potassium 25 Mg Tab PO 03/15/25 08:59 25 mg QAM IRENE Administration Multivitamins 1 tab 02/13/25 09:00 02/14/25 08:08 Multivitamin Tab PO 03/15/25 08:59 Not Given QAM IRENE Ondansetron HCl 4 mg 02/14/25 01:11 02/14/25 01:34 Ondansetron Inj 2 Mg/Ml 2 Ml Vial IV 03/16/25 01:10 4 mg Q6H PRN Administration Nausea And Vomiting Oxycodone HCl 5 mg 02/12/25 22:37 02/13/25 19:14 Oxycodone Hcl Ir 5 Mg Tab (Immediate Release) PO 02/26/25 22:36 5 mg Q6H PRN Administration Pain Pantoprazole Sodium 40 mg 02/13/25 09:00 02/14/25 08:05 Pantoprazole 40 Mg Tab PO 03/15/25 08:59 40 mg DAILY IRENE Administration Polyethylene Glycol 17 gm 02/13/25 10:15 02/14/25 08:05 Polyethylene (Miralax) 17 Gm Pack PO 03/15/25 10:14 Not Given DAILY IRENE Pregabalin 50 mg 02/12/25 22:45 02/14/25 08:06 Pregabalin 50 Mg Cap PO 03/14/25 22:44 50 mg BID IRENE Administration Sumatriptan Succinate 100 mg 02/12/25 22:37 02/14/25 01:34 Sumatriptan Succinate 100 Mg Tab PO 03/14/25 22:36 100 mg BID PRN Administration migraine headache Vitamin D 125 mcg 02/13/25 09:00 02/14/25 08:09 Cholecalciferol 125 Mcg (5,000 Units) Tab PO 03/15/25 08:59 Not Given DAILY IRENE NPO Date Last Intake of Fluids: 02/13/25 Date Last Intake of Solids: 05/03/25 Past Medical History Medical History Anemia Chronic Asthma Chronic sinusitis Per records GERD (gastroesophageal reflux disease) Hx History of BPH Hx of migraines Hypertension Hypothyroidism Seizure Per remote records (entered 2020 without further details) Patient denies Trigeminal neuralgia Takes Lyrica Past Family History Family History Father Myocardial infarction Parkinson disease Mother Hypertension Denies family history of Hearing loss No family history of adverse response to anesthesia No family history of bleeding disorder Heart disease Allergies Cancer Stroke Asthma Past Surgical History Surgical History History of left knee replacement (2021) History of esophagogastroduodenoscopy (EGD) S/P colonoscopy S/P sinus surgery S/P inguinal hernia repair S/P arthroscopic knee surgery left H/O neck surgery ~C5 fusion (2008) Social History Smoking Status: Never smoker Do You Dip or Chew Tobacco: No Hx Alcohol Use: Yes alcohol intake frequency: holidays/special occasions only Hx Substance Use: No substance use type: does not use Physical Exam Vital Signs Last Vital Signs Temp 36.9 C 02/14/25 07:27 Pulse 80 02/14/25 07:27 Resp 18 02/14/25 07:27 BP 134/83 02/14/25 07:27 Pulse Ox 97 02/14/25 07:27 O2 Del Method Room Air 02/14/25 07:27 Testing Laboratory Results 02/14/25 06:15 02/14/25 06:15 Urine Color Yellow 02/12/25 19:25 Urine Appearance Clear (Clear) 02/12/25 19:25 Urine pH 7.0 (4.5-7.5) 02/12/25 19:25 Ur Specific [place] 1.013 (1.000-1.030) 02/12/25 19:25 Urine Protein Negative (Negative) 02/12/25 19: Urine Glucose (UA) Negative (Negative) 02/12/25 19:25 Urine Ketones Negative (Negative) 02/12/25 19:25 Urine Nitrite Negative (Negative) 02/12/25 19:25 Ur Leukocyte Esterase Negative (Negative) 02/12/25 19:25 02/12/25 18:32 Aerobic Blood Culture - Preliminary Blood No growth in Aerobic bottle after 24 hours. Anaerobic Blood Culture - Preliminary Gram positive cocci clusters 02/12/25 18:15 Aerobic Blood Culture - Preliminary Blood Gram positive cocci clusters Anaerobic Blood Culture - Preliminary Gram positive cocci clusters
[2025-02-14] MEDS ORDERED: PROMETHAZINE HCL 6.25 MG in SODIUM CHLORIDE 0.9% 50 ML IV PRN (09:20)
[2025-02-14] MEDS ORDERED: ePHEDrine sulfate 50 MG/ML AMP IV PRN (09:20)
[2025-02-14] MEDS ORDERED: ATROPINE SULFATE 0.1 MG/ML 10ML SYR IV PRN (09:20)
[2025-02-14] MEDS ORDERED: HYDROmorphone INJ 2 MG/ML SYR/VIAL IV PRN (09:20)
[2025-02-14] MEDS ORDERED: ONDANSETRON INJ 2 MG/ML 2 ML VIAL IV PRN ×2 (09:20→12:12)
[2025-02-14] MEDS: ceFAZolin 330 MG/ML 1 GM VIAL ONE (10:05)
[2025-02-14] MEDS: BUPIVACAINE/EPINEPHRINE 0.25% 1:200,000 30 ML VIAL ONE (10:09)
[2025-02-14] MEDS ORDERED: SUGAMMADEX SODIUM 200 MG/2 ML VIAL IV ONE (10:30)
--- NOTE | 2025-02-14 10:35 | Operative Report ---
Post Operative Report Pre & Post Diagnosis Operation Date: 02/14/25 10:00 Pre-Op Diagnosis: Cervical epidural abscess Post-Op Diagnosis: Same I identified the patient and participated in the time-out.: Yes Procedure Operation Date: 02/14/25 10:00 Actual Procedures #1 irrigation and debridement of the posterior cervical spine. #2 placement of Stimulan beads impregnated with vancomycin and gentamicin throughout the incision. Surgeon Ian Reyes, DO Sales Estimator None Estimated Blood Loss 10 Findings See Below Specimens Cultures from the epidural space of the cervical spine Indications This is a 69-year-old male that presents status post posterior cervical decompression fusion. His drain was pulled of this week on Saturday he began experiencing chills was admitted for observation. Blood cultures came back positive x 2 for staph. Subsequently recommending urgent irrigation debridement of the cervical spine. Description of Procedure Patient was met identified informed consent obtained. Patient was then taken to the operative suite underwent intubation placed in a prone position on the Baudilio table chest padded bolsters. All bony prominences well-padded eyes inspected to ensure no external precipice spinal. This point the posterior cervical spine was prepped and draped normal sterile fashion. Utilizing the previous incision site sharp dissection was performed down to the fascial layer. Significant amount of serous cloudy fluid was identified. I then opened the fascial muscular layer to the epidural space and noted continued cloudy fluid suspicious for infection. Cultures were taken. Several liters of antibiotic saline were then copiously irrigated throughout the incision. Debridement did take place of all abnormal looking tissue. Then placed approximately 8 cc of Stimulan beads impregnated with vancomycin gentamicin in the epidural space and subcutaneous layers. 15 round LIBBY drain was placed in the epidural space. An 10 round LIBBY drain was placed in the subdermal area. The incision was closed with subcutaneous Vicryl and 4 Monocryl for final skin closure. Steri-Strips dressing placed. Patient waken taken to PACU in stable condition. I attest to the content of the Intraoperative Record and any orders documented therein. Any exceptions are noted below.
[2025-02-14] MEDS: fentaNYL citrate PF 100 MCG/2 ML VIAL IV PRN (11:05)
--- NOTE | 2025-02-14 11:28 | Anesthesiology Progress Note ---
Date of Service February 14, 2025 Anesthesia Post Procedure Vital Signs Vital Signs: Temp Pulse Pulse Resp BP Pulse Ox Pulse Ox 02/14/25 10:55 64 18 99/55 L 100 02/14/25 10:46 36 C L 66 16 100/55 L 100 02/14/25 07:27 36.9 C 80 18 134/83 97 02/13/25 22:32 96 02/13/25 20:22 36.6 C 70 18 102/63 97 02/13/25 17:56 36.8 C 78 18 106/69 94 02/13/25 16:28 37.6 C H 02/13/25 15:28 39.0 C H O2 Del Method O2 Del Method O2 Flow Rate 02/14/25 10:55 Oxymask 8 02/14/25 10:46 Oxymask 10 02/14/25 07:27 Room Air 02/13/25 22:32 Room Air 02/13/25 20:22 Room Air 02/13/25 17:56 Room Air 02/13/25 16:28 02/13/25 15:28 Pain Intensity Neck: Pain Intensity: 7 Transfer of Care Handoff Completed per policy Notes Mental Status: alert / awake / arousable and participated in evaluation Patient Amnestic to Procedure: Yes Nausea / Vomiting: adequately controlled Pain: adequately controlled Airway Patency, RR, SpO2: stable & adequate BP & HR: stable & adequate Hydration State: stable & adequate Anesthetic Complications: no major complications apparent
[2025-02-14] MEDS ORDERED: hydrOXYzine HCl 25 MG TAB PO PRN (12:12)
[2025-02-14] MEDS ORDERED: DO NOT ADMINISTER FLU VACCINE PRN (12:12)
[2025-02-14] MEDS ORDERED: MAGNESIUM HYDROXIDE SUSP 30 ML UDC PO PRN (12:12)
[2025-02-14] MEDS ORDERED: dexAMETHasone 8 MG in SYRINGE 0 ML IV PRN (12:12)
[2025-02-14] MEDS ORDERED: ACETAMINOPHEN 1,000 MG/100 ML VIAL IV PRN (12:12)
[2025-02-14] MEDS ORDERED: diphenhydrAMINE Capsule 25 MG CAP PO PRN (12:12)
[2025-02-14] MEDS ORDERED: SOD PHOSPHATE/SOD BIPHOSPHATE ENEMA 132 ML BTL PR PRN (12:12)
[2025-02-14] MEDS ORDERED: ACETAMINOPHEN 500 MG TAB PO PRN (12:12)
[2025-02-14] MEDS ORDERED: RACEPINEPHRINE 2.25% NEBU SOLN 0.5 ML VIAL INH PRN (12:12)
[2025-02-14] MEDS ORDERED: ALUMINUM/MAGNESIUM SUSP 30 ML UDC PO PRN (12:12)
[2025-02-14] MEDS ORDERED: ONDANSETRON 4 MG OD TAB PO PRN (12:12)
[2025-02-14] MEDS ORDERED: NALOXONE HCL 0.4 MG/1 ML VIAL/CARP IV PRN (12:12)
[2025-02-14] MEDS ORDERED: METOCLOPRAMIDE HCL INJ 5 MG/ML 2 ML VIAL IV PRN (12:12)
[2025-02-14] MEDS ORDERED: bisacodyL 10 MG SUPP PR PRN (12:12)
[2025-02-14] MEDS ORDERED: FAMOTIDINE 20 MG TAB PO PRN (12:12)
[2025-02-14] MEDS ORDERED: LORazepam 2 MG/1 ML VIAL IV PRN (12:12)
[2025-02-14] MEDS ORDERED: DO NOT ADMINISTER PNEUMOCOCCAL VACCINE PRN (12:12)
[2025-02-14] MEDS: HYDROmorphone INJ 0.5 MG/0.5 ML SYR IV PRN (13:23)
--- NOTE | 2025-02-14 14:16 | Hospitalist Progress Note ---
Date of Service February 14, 2025 Assessment & Plan (1) Fever postop: Plan 69 yo male PMHx GERD, osteoarthritis, hypothyroidism, HTN, hearing loss, anemia, BPH, POD-11 from posterior cervical decompression and fusion with fever. #Post-op fever subjective and measured fever Tmax 101.2 leukocytosis w/ left shift present, uptrended from 02/12 labs continue ceftriaxone, vancomycin BCx (02/12: positive for Staph aureus rpt BCx ordered (02/14) Orthospine consult - s.p irrigation and debridement of posterior cervical spine, placement of Stimulan beads impregnated with vancomycin and gentamicin throughout the incision will request ID consult #Constipation senna-docusate 100mg BID Miralax 17g po daily #Chronic Conditions GERD - continue pantoprazole HTN - continue ARB BPH - continue finasteride Hypothyroidism - continue Synthroid Mental Health/Sleep - continue PRN Ativan FENGI: regular diet, s/p 1L NSS Code status: Full DVT prophylaxis: SCDs, ambulation, pharmacologic ppx pending ortho clearance Isolation: none Disposition: med/surg Admission and Anticipated Discharge Date Admission Date: February 12, 2025 Subjective s/p irrigation and debridement of the posterior cervical spine pt states he is having increased pain, otherwise no complaints Review of Systems Review of Systems: comprehensive ROS neg Physical Exam Physical Exam: Gen: NAD HEENT: NC/AT, MMM Lungs: CTA laterally CVS: s1s2nl, RRR Abd: soft, active bowel sounds, NT Ext: no edema Neuro: awake, alert, communicating appropriately Psych: calm, cooperative Results & Data Results & Data Vital Signs (Past 12 Hours) Vital Signs Temp Pulse Pulse Resp BP Pulse Ox O2 Del Method 02/14/25 13:32 68 18 99/59 L 96 Room Air 02/14/25 13:07 68 16 97 Room Air 02/14/25 12:44 59 L 18 104/68 98 Room Air 02/14/25 12:10 36.3 C L 65 16 116/72 98 Room Air 02/14/25 11:45 36.4 C L 69 15 117/66 100 Oxymask 02/14/25 11:35 62 12 97/54 L 100 Oxymask 02/14/25 11:25 64 20 100/58 L 99 Oxymask 02/14/25 11:15 72 20 106/59 L 99 Oxymask 02/14/25 11:05 76 20 121/73 100 Oxymask 02/14/25 10:55 64 18 99/55 L 100 Oxymask 02/14/25 10:46 36 C L 66 16 100/55 L 100 Oxymask 02/14/25 07:27 36.9 C 80 18 134/83 97 Room Air O2 Flow Rate 02/14/25 13:32 02/14/25 13:07 02/14/25 12:44 02/14/25 12:10 02/14/25 11:45 2 02/14/25 11:35 2 02/14/25 11:25 3 02/14/25 11:15 4 02/14/25 11:05 6 02/14/25 10:55 8 02/14/25 10:46 10 02/14/25 07:27 PG Care Time/CCT Total # of Minutes Spent Total Time Spent with Patient: Total time spent is greater than 50% in coordination of care (as documented) at patient's floor/unit and/or counseling patient: Coding Level of Care Code 39454 SUB INP/OBS CARE 11/07MIN Diagnoses Fever postop R50.82
[2025-02-14] MEDS: HYDROmorphone INJ 1 MG/ML SYRINGE IV PRN (16:35)
[2025-02-14] MEDS: PROMETHAZINE 12.5 MG/50.5 ML BAG IV PRN (18:37)
[2025-02-14] MEDS: DOCUSATE SODIUM/SENNA 50/8.6MG TAB PO SCH (20:30)
[2025-02-15] MEDS: POLYETHYLENE (MIRALAX) 17 GM PACK PO SCH (05:59)
[2025-02-15 07:36] LABS: Hematocrit (blood only) 29.3 % (42.0-52.0); Hemoglobin 9.7 g/dl (14.0-18.0); Mean Corpuscular Hemoglobin 28.5 pg (25.0-34.0); Mean Corpuscular Hgb Conc 33.1 g/dL (32.0-36.0); Mean Corpuscular Volume 86.2 fL (80.0-100.0); Mean Platelet Volume 11.8 fL (9.4-12.4); Platelet Count 265 K/uL (130-400); RDW Coefficient of Variation 12.6 % (11.5-14.5); RDW Standard Deviation 39.9 fL (36.4-46.3)
[2025-02-15 07:57] LABS: Calcium 9.4 mg/dl (8.6-10.3); Creatinine Clr Calc Pharmacy 68.2 ml/min; Potassium 3.6 mmol/L (3.5-5.1)
[2025-02-15 08:00] LABS: Basophils # (auto) 0.03 K/uL (0.00-0.20); Basophils % (auto) 0.1 %; Eosinophils # (auto) 0.12 K/uL (0.00-0.50); Eosinophils % (auto) 0.5 %; Immature Granulocytes # (auto) 0.14 K/uL (0.01-0.20); Immature Granulocytes % (auto) 0.6 %; Monocytes % (auto) 5.6 %; Neutrophils # (auto) 21.61 K/uL (1.40-6.50); Neutrophils % (auto) 87.2 %
--- NOTE | 2025-02-15 09:25 | Infectious Disease Consult ---
Date of Consultation February 15, 2025 Assessment & Plan (1) MSSA bacteremia: (2) Infection of cervical spine: Plan Problems: #Posterior cervical decompression and fusion (02/02/25) c/b post-operative MSSA infection #MSSA bacteremia Micro: 02/14 BCx x2: pending 02/14 OR neck culture: Staph aureus 02/12 BCx x2: MSSA in 01/15 bottles Abx: Vanc 02/12 - present Ceftriaxone 02/12 - present 69 yo M with HTN, anemia, BPH, recent posterior cervical decompression and fusion (02/02/25) who presented on 02/12/25 with fevers, night sweats, found to have MSSA bacteremia 2/ post-operative infection, s/p I&D (02/14/25). On presentation, T 37.4, HR 102. Labs with WBC 17.93. Pt was started on vanc, ceftriaxone. Admission blood cultures grew MSSA. Orthopedics was consulted, noted some swelling at the distal half of the neck incision, modest erythema around the wound edges. Pt was taken to the OR on 02/14 for I&D. Per operative note, significant amount of serous cloudy fluid was identified. OR culture grew MSSA. Pt reports neck pain. Denies other joint or spine pains. Has a history of L TKA but no pain there. Denies other hardware. Recommendations: - Changed antibiotics to cefazolin 2 g IV q8h for MSSA - TTE ordered to evaluate for endocarditis given Staph aureus bacteremia - Follow-up 02/14 blood cultures - Repeat blood cultures on 02/16 - Will plan to add rifampin given hardware associated infection, when blood c ultures clear - Anticipate 6 weeks of IV antibiotics, followed by PO antibiotic suppression for at least 1 year, possibly lifelong if tolerating well Will continue to follow. Consultation Information Consultation was provided via telemedicine using two-way real-time interactive telecommunication between the patient and the telemedicine provider. For the duration of the visit, the provider was performing the assessment from a different facility than the patient. This includesuse of bluetooth stethoscope forauscultationperformed by the telepresenter that the telemedicine provider can hear if described in the physical exam. Optical Worker contact information: Please call [facility] [phone]. (Phone Number For Physician Use Only) After establishing a telemedicine visit, patient was: Patient was verified with two unique identifiers, Patient/authorized rep acknowledged consent and understanding and Gave permission to continue telehealth session Time Spent with Patient: Initial => 40 min History of Present Illness Reason for Consultation: Staph aureus bacteremia, recent spinal surgery Attending Physician: Khanh Thomson History of Present Illness 69 yo M with HTN, anemia, BPH, recent posterior cervical decompression and fusion (02/02/25) who presented on 02/12/25 with fevers, night sweats. On presentation, T 37.4, HR 102. Labs with WBC 17.93. Pt was started on vanc, ceftriaxone. Admission blood cultures grew MSSA. Orthopedics was consulted, noted some swelling at the distal half of the neck incision, modest erythema around the wound edges. Pt was taken to the OR on 02/14 for I&D. Per operative note, significant amount of serous cloudy fluid was identified. OR culture grew MSSA. Pt reports neck pain. Denies other joint or spine pains. Has a history of L TKA but no pain there. Denies other hardware. Allergies Allergy/AdvReac Type Severity Reaction Status Date / Time milk Allergy Verified 02/13/25 09:31 Home Medications Medication Instructions Recorded Confirmed Type fluticasone propionate 50 1 spray intranasal BID PRN allergy 03/07/21 02/12/25 Rx mcg/actuation nasal symptoms 30 days #15.8 mL spray,suspension (Flonase Allergy Relief) albuterol sulfate 90 mcg/actuation 1 inh inhalation QID PRN shortness 09/02/23 02/12/25 Rx aerosol inhaler of breath or wheezing #8.5 grams finasteride 5 mg tablet (Proscar) 5 mg PO QAM #90 tabs 02/01/24 02/12/25 Rx beclomethasone dipropionate 40 1 inh inhalation Q12H PRN 03/11/24 02/12/25 Rx mcg/actuation HFA breath activated Shortness Of Breath Or Wheezing #1 aerosol (Qvar RediHaler) inhaler albuterol sulfate 2.5 mg/3 mL 2.5 mg inhalation Q6H PRN SOB 03/13/24 02/12/25 History (0.083 %) solution for nebulization pregabalin 50 mg capsule (Lyrica) 50 mg PO BID #90 caps 09/17/24 02/12/25 Rx lorazepam 0.5 mg tablet 0.5 mg PO HS PRN sleep #30 tabs 09/28/24 02/12/25 Rx aspirin 81 mg tablet,delayed 81 mg PO QPM 09/30/24 02/12/25 History release (Adult Low Dose Aspirin) telmisartan 20 mg tablet (Micardis) 10 mg PO QAM 09/30/24 02/12/25 History levothyroxine 75 mcg tablet 75 mcg PO QAM #90 tabs 12/29/24 02/12/25 Rx (Synthroid) multivitamin 1 tab PO QAM 01/06/25 02/12/25 History pantoprazole 40 mg tablet,delayed 40 mg PO DAILY 01/06/25 02/12/25 History release cholecalciferol (vitamin D3) 125 125 mcg PO DAILY #30 caps 02/08/25 02/12/25 Rx mcg (5,000 unit) capsule methylprednisolone 4 mg tablets in 0 mg PO DAILY 02/12/25 02/12/25 History a dose pack oxycodone 5 mg tablet 5 mg PO Q6H PRN Pain 02/12/25 02/12/25 History sumatriptan succinate 100 mg tablet 100 mg PO BID PRN migraine headache 02/12/25 02/12/25 History Patient History Medical History Anemia Chronic Asthma Chronic sinusitis Per records GERD (gastroesophageal reflux disease) Hx History of BPH Hx of migraines Hypertension Hypothyroidism Seizure Per remote records (entered 2020 without further details) Patient denies Trigeminal neuralgia Takes Lyrica Surgical History History of left knee replacement (2021) History of esophagogastroduodenoscopy (EGD) S/P colonoscopy S/P sinus surgery S/P inguinal hernia repair S/P arthroscopic knee surgery left H/O neck surgery ~C5 fusion (2008) Family History Father Myocardial infarction Parkinson disease Mother Hypertension Denies family history of Hearing loss No family history of adverse response to anesthesia No family history of bleeding disorder Heart disease Allergies Cancer Stroke Asthma Social History Smoking Status: Never smoker Second Hand Exposure: No; Do You Dip or Chew Tobacco: No; Hx Alcohol Use: Yes Alcohol Intake Frequency: 2-3 x/Week Hx Substance Use: No Preferred Language: Estonian Communication Ability: Effective Visual Impairment: Limited Hearing Ability: Normal Parlor Chaperone Required: No Beliefs That Will Affect Care: None marital status: Current Living Situation: Spouse current occupational status: retired Feels Safe at Home: Yes caffeine: Yes Dental Care, Regularly: Yes Physical Activity Frequency: 1-2 Times per Week Seatbelt Use: always Assistive Devices: Walker Review of System A complete ROS was performed and is negative except as mentioned in the HPI. Physical Exam Physical Exam: GEN: laying in bed in NAD HEENT: cervical spine pain with ROM. Surgical dressing in place over posterior neck incision with [address] with serosanguinous fluid. RESP: No increased work of breathing EXT: No LE edema. Warm, well-perfused. No joint swelling or erythema or pain SKIN: No lesions or rashes on exposed skin. BACK: No thoracic or lumbar spine tenderness to palpation. NEURO: Alert and oriented. Answers all questions appropriately. Speech not slurred. PSYCH: Normal mood, affect appropriate. Results & Data Vital Signs (Past 12 Hours) Vital Signs Temp Pulse Resp BP Pulse Ox O2 Del Method 02/15/25 08:22 36.6 C 68 18 111/72 96 Room Air 02/15/25 07:00 64 16 96 Room Air 02/15/25 03:20 60 14 98 Room Air 02/15/25 02:50 36.6 C 64 16 100/63 95 Room Air 02/14/25 23:08 36.4 C L 97 H 16 117/55 L 97 Room Air Laboratory Results Short CBC 02/15/25 Range/Units 07:03 WBC 24.80 H (4.8-10.8) K/ul Hgb 9.7 L (14.0-18.0) g/dl Hct 29.3 L (42.0-52.0) % Plt Count 265 (130-400) K/uL BMP 02/15/25 07:03 Sodium 137 Potassium 3.6 Chloride 103 Carbon Dioxide 28 BUN 20 Creatinine 0.87 Glucose 92 Calcium 9.4 Diagnostic Findings Chest X-Ray 02/12/25 17:23 Clinical History: Weakness Technique: A frontal view of the chest was obtained Comparison is made to the prior examination dated 02/03/2025 Findings: There are no confluent pulmonary infiltrates. The heart size is within normal limits. No pleural effusion or pneumothorax is seen. There is no definite pulmonary nodule. No fracture is noted. There is an unchanged fusion of the cervical and upper thoracic spine Impression: No active disease Electronically signed by Yair Rincon 02-12-2025 6:20 PM Medications Administered Current Inpatient Medications Acetaminophen (Acetaminophen 500 Mg Tab) 1,000 mg PO Q8H PRN PRN Reason: Pain or Fever Stop: 03/14/25 22:31 Last Admin: 02/14/25 08:04 Dose: 1,000 mg Acetaminophen (Acetaminophen 500 Mg Tab) 1,000 mg PO Q8H PRN PRN Reason: MILD Pain Scale 1,2,3 & Pre PT Stop: 03/16/25 12:11 Al Hydrox/Mg Hydrox/Simethicone (Aluminum/Magnesium Susp 30 Ml Udc) 30 ml PO Q6H PRN PRN Reason: Dyspepsia Stop: 03/16/25 12:11 Albuterol (Albuterol Hfa 8 Gm Inhaler) 1 puffs INH QID PRN PRN Reason: shortness of breath or wheezing Stop: 03/14/25 22:36 Aspirin (Aspirin 81 Mg Ectab) 81 mg PO QPM IRENE Stop: 03/15/25 20:59 Last Admin: 02/14/25 20:30 Dose: 81 mg Bisacodyl (Bisacodyl 10 Mg Supp) 10 mg [place] DAILY PRN PRN Reason: Constipation Stop: 03/16/25 12:11 Diphenhydramine HCl (Diphenhydramine Capsule 25 Mg Cap) 25 mg PO Q6H PRN PRN Reason: Allergic Rhinitis/Insomnia Stop: 03/16/25 12:11 Docusate Sodium (Docusate Sodium 100 Mg Cap) 100 mg PO BID IRENE Stop: 03/15/25 10:14 Last Admin: 02/15/25 08:25 Dose: 100 mg Epinephrine (Racepinephrine 2.25% Nebu Soln 0.5 Ml Vial) 0.5 ml INH NOW PRN PRN Reason: If stridor present Famotidine (Famotidine 20 Mg Tab) 20 mg PO Q12H PRN PRN Reason: Dyspepsia Stop: 03/16/25 12:11 Finasteride (Finasteride 5 Mg Tab) 5 mg PO QAM IRENE Stop: 03/15/25 08:59 Last Admin: 02/15/25 08:25 Dose: 5 mg Fluticasone Propionate (Fluticasone Propionate Na Spr 16 Gm Btl) 1 sprays NA BID PRN PRN Reason: allergy symptoms Stop: 03/14/25 22:36 Hydromorphone HCl (Hydromorphone Inj 0.5 Mg/0.5 Ml Syr) 0.5 mg IV Q3H PRN PRN Reason: MODERATE Pain (Scale 4,5,6) & Pre PT Stop: 02/28/25 12:11 Last Admin: 02/14/25 13:23 Dose: 0.5 mg Hydromorphone HCl (Hydromorphone Inj 1 Mg/Ml Syringe) 1 mg IV Q3H PRN PRN Reason: SEVERE Pain (Scale 7,8,9,10) Stop: 02/28/25 12:11 Last Admin: 02/15/25 06:24 Dose: 1 mg Hydromorphone HCl (Hydromorphone Hcl 2 Mg Tab) 2 mg PO Q4 PRN PRN Reason: Pain Stop: 02/28/25 12:11 Hydroxyzine HCl (Hydroxyzine Hcl 25 Mg Tab) 25 mg PO Q8H PRN PRN Reason: Anxiety Stop: 03/16/25 12:11 Ceftriaxone Sodium (Rocephin) 2,000 mg in 50 mls @ 100 mls/hr IV Q24H IRENE Stop: 02/15/25 19:59 Last Infusion: 02/14/25 21:14 Dose: Infused Vancomycin HCl 750 mg/ Sodium (Chloride) 265 mls @ 200 mls/hr IV Q12H IRENE Stop: 02/15/25 13:59 Last Infusion: 02/15/25 03:32 Dose: Infused Dexamethasone 8 mg/ Syringe 2 mls @ 1 mls/min IV NOW PRN PRN Reason: If stridor present Acetaminophen (Ofirmev) 1,000 mg in 100 mls @ 400 mls/hr IV Q8H PRN PRN Reason: Pain Rating 1-3 & Pre PT Stop: 02/15/25 12:12 Promethazine HCl (Phenergan) 12.5 mg in 50.5 mls @ 202 mls/hr IV Q6H PRN PRN Reason: Nausea And Vomiting Stop: 03/16/25 12:11 Last Infusion: 02/14/25 19:12 Dose: Infused Influenza Virus Vaccine Quadrival (Do Not Administer Flu Vaccine) 1 each N/A PRN PRN PRN Reason: Notification Stop: 03/16/25 12:11 Levothyroxine Sodium (Levothyroxine Sodium 75 Mcg Tablet) 75 mcg PO DAILYBB [facility] Stop: 03/15/25 06:29 Last Admin: 02/15/25 05:59 Dose: 75 mcg Lorazepam (Lorazepam 0.5 Mg Tab) 0.5 mg PO HS PRN PRN Reason: sleep Stop: 03/14/25 22:36 Last Admin: 02/14/25 23:25 Dose: 0.5 mg Lorazepam (Lorazepam 0.5 Mg Tab) 0.5 mg PO Q8H PRN PRN Reason: Sedation/Anxiety Stop: 03/16/25 12:11 Lorazepam (Lorazepam 2 Mg/1 Ml Vial) 0.5 mg IV Q8H PRN PRN Reason: Sedation/Anxiety Stop: 03/16/25 12:11 Losartan Potassium (Losartan Potassium 25 Mg Tab) 25 mg PO QAM [facility] Stop: 03/15/25 08:59 Last Admin: 02/15/25 08:25 Dose: 25 mg Magnesium Hydroxide (Magnesium Hydroxide Susp 30 Ml Udc) 30 ml PO Q24H PRN PRN Reason: Constipation Stop: 03/16/25 12:11 Metoclopramide HCl (Metoclopramide Hcl Inj 5 Mg/Ml 2 Ml Vial) 10 mg IV Q6H PRN PRN Reason: Nausea &/or Vomiting Stop: 03/16/25 12:11 Miscellaneous Information (Vancomycin Consult Active) 1 each N/A UD PRN PRN Reason: Consult Stop: 03/14/25 19:29 Multivitamins (Multivitamin Tab) [facility] Stop: 03/15/25 08:59 Last Admin: 02/15/25 08:11 Dose: Not Given Naloxone HCl (Naloxone Hcl 0.4 Mg/1 Ml Vial/Carp) 0.1 mg IV Q5M PRN PRN Reason: Oversedation/Resp depression Stop: 03/16/25 12:11 Ondansetron HCl (Ondansetron Inj 2 Mg/Ml 2 Ml Vial) 4 mg IV Q6H PRN PRN Reason: Nausea And Vomiting Stop: 03/16/25 01:10 Last Admin: 02/14/25 14:25 Dose: 4 mg Ondansetron HCl (Ondansetron Inj 2 Mg/Ml 2 Ml Vial) 4 mg IV Q6H PRN PRN Reason: Nausea &/or Vomiting Stop: 03/16/25 12:11 Ondansetron HCl (Ondansetron 4 Mg Od Tab) 4 mg PO Q6H PRN PRN Reason: Nausea Stop: 03/16/25 12:11 Pantoprazole Sodium (Pantoprazole 40 Mg Tab) 40 mg PO DAILY IRENE Stop: 03/15/25 08:59 Last Admin: 02/15/25 08:25 Dose: 40 mg Pneumococcal Polyvalent Vaccine (Do Not Administer Pneumococcal Vaccine) 1 each N/A PRN PRN PRN Reason: Notification Stop: 03/16/25 12:11 Polyethylene Glycol (Polyethylene (Miralax) 17 Gm Pack) 17 gm PO DAILY [facility] Stop: 03/15/25 10:14 Last Admin: 02/15/25 08:11 Dose: Not Given Polyethylene Glycol (Polyethylene (Miralax) 17 Gm Pack) 17 gm PO Q6 IRENE Stop: 03/17/25 05:59 Last Admin: 02/15/25 05:59 Dose: 17 gm Pregabalin (Pregabalin 50 Mg Cap) 50 mg PO BID IRENE Stop: 03/14/25 22:44 Last Admin: 02/15/25 08:25 Dose: 50 mg Senna/Docusate Sodium (Docusate Sodium/Senna 50/8.6mg Tab) 2 tab PO HS IRENE Stop: 03/16/25 20:59 Last Admin: 02/14/25 20:30 Dose: 2 tab Sodium Biphosphate/Sodium Phosphate (Sod Phosphate/Sod Biphosphate Enema 132 Ml Btl) 132 ml [place] ONE PRN PRN Reason: Constipation Stop: 03/16/25 12:11 Sumatriptan Succinate (Sumatriptan Succinate 100 Mg Tab) 100 mg PO BID PRN PRN Reason: migraine headache Stop: 03/14/25 22:36 Last Admin: 02/14/25 01:34 Dose: 100 mg Tramadol HCl (Tramadol Hcl 50 Mg Tablet) 50 - 100 mg PO Q4H PRN PRN Reason: Moderate-Severe pain & Pre PT Stop: 03/16/25 12:11 Vitamin D (Cholecalciferol 125 Mcg (5,000 Units) Tab) 125 mcg PO DAILY IRENE Stop: 03/15/25 08:59 Last Admin: 02/15/25 08:11 Dose: Not Given
--- NOTE | 2025-02-15 10:11 | Orthopedic Progress Note ---
Date of Service February 15, 2025 Assessment & Plan (1) Fever postop: Plan: Patient is feeling better today. Drains are functioning. He had a question regarding his blood pressure medications I will review with medicine. Admission and Anticipated Discharge Date Admission Date: February 12, 2025 Subjective Neck pain is controlled. Arm symptoms improved. Physical Exam Physical Exam: Patient is in bed. Is good strength testing upper extremities. Drains are functioning. Results & Data Vital Signs (Past 12 Hours) Vital Signs Temp Pulse Resp BP Pulse Ox O2 Del Method 02/15/25 08:22 36.6 C 68 18 111/72 96 Room Air 02/15/25 07:00 64 16 96 Room Air 02/15/25 03:20 60 14 98 Room Air 02/15/25 02:50 36.6 C 64 16 100/63 95 Room Air 02/14/25 23:08 36.4 C L 97 H 16 117/55 L 97 Room Air
[2025-02-15] MEDS: LORazepam 0.5 MG TAB PO PRN (14:49)
[2025-02-15] MEDS: ceFAZolin 2000MG 2,000 MG/15 ML SYR IV SCH (14:49)
--- NOTE | 2025-02-15 15:43 | XCELERA ---
[id number]
--- NOTE | 2025-02-15 18:38 | Hospitalist Progress Note ---
Date of Service February 15, 2025 Assessment & Plan (1) Fever postop: Plan 69 yo male PMHx GERD, osteoarthritis, hypothyroidism, HTN, hearing loss, anemia, BPH, POD-11 from posterior cervical decompression and fusion with fever. #Post-op fever subjective and measured fever Tmax 101.2 leukocytosis w/ left shift present, uptrended from 02/12 labs continue ceftriaxone, vancomycin BCx (02/12: positive for Staph aureus rpt BCx ordered (02/14) Orthospine consult - s.p irrigation and debridement of posterior cervical spine, placement of Stimulan beads impregnated with vancomycin and gentamicin throughout the incision Appreciate input from ID. MSSA shown on blood culture WBC is higher. will monitor #Constipation senna-docusate 100mg BID Miralax 17g po daily #Chronic Conditions GERD - continue pantoprazole HTN - continue ARB BPH - continue finasteride Hypothyroidism - continue Synthroid Mental Health/Sleep - continue PRN Ativan FENGI: regular diet, s/p 1L NSS Code status: Full DVT prophylaxis: SCDs, ambulation, pharmacologic ppx pending ortho clearance Isolation: none Disposition: med/surg Admission and Anticipated Discharge Date Admission Date: February 12, 2025 Subjective 69 yo male reports no new symptoms. His pain is better controlled Physical Exam Constitutional: WD/WN, vitals as above Respiratory: normal respiratory effort, lungs clear to auscultation Cardiovascular: RRR, no murmur, no edema Results & Data Results & Data Vital Signs (Past 12 Hours) Vital Signs Temp Pulse Resp BP Pulse Ox O2 Del Method 02/15/25 16:00 36.7 C 72 20 127/73 99 Room Air 02/15/25 14:50 72 16 98 Room Air 02/15/25 10:45 65 16 97 Room Air 02/15/25 08:22 36.6 C 68 18 111/72 96 Room Air 02/15/25 07:00 64 16 96 Room Air PG Care Time/CCT Total # of Minutes Spent Total Time Spent with Patient: Total time spent is greater than 50% in coordination of care (as documented) at patient's floor/unit and/or counseling patient: Coding Level of Care Code 82635 SUB INP/OBS CARE 3/50MIN Diagnoses Fever postop R50.82
[2025-02-16 07:31] LABS: BUN Creatinine Ratio 19.3 (10-20); C Reactive Protein 9.36 mg/dl (0-0.5); Calcium 9.1 mg/dl (8.6-10.3); Creatinine Clr Calc Pharmacy 71.4 ml/min; Potassium 3.4 mmol/L (3.5-5.1)
[2025-02-16 07:50] LABS: Hematocrit (blood only) 29.9 % (42.0-52.0); Hemoglobin 9.8 g/dl (14.0-18.0); Mean Corpuscular Hemoglobin 27.8 pg (25.0-34.0); Mean Corpuscular Hgb Conc 32.8 g/dL (32.0-36.0); Mean Corpuscular Volume 84.9 fL (80.0-100.0); Mean Platelet Volume 11.4 fL (9.4-12.4); Platelet Count 250 K/uL (130-400); RDW Standard Deviation 39.8 fL (36.4-46.3); Red Blood Count 3.52 M/uL (4.70-6.10); White Blood Count 12.21 K/ul (4.8-10.8)
--- NOTE | 2025-02-16 08:51 | Billing Data ---
Date of Service February 12, 2025 Coding Level of Care Code 44355 INT INP/OBS CARE
--- NOTE | 2025-02-16 11:56 | Infectious Disease Progress Nt ---
Date of Service February 16, 2025 Assessment & Plan (1) MSSA bacteremia: (2) Infection of cervical spine: Plan Problems: #Posterior cervical decompression and fusion (02/02/25) c/b post-operative MSSA infection #MSSA bacteremia Micro: 02/14 BCx x2: NGTD 02/14 OR neck culture: Staph aureus 02/12 BCx x2: MSSA in 01/15 bottles Abx: Vanc 02/12 - 02/15 Ceftriaxone 02/12 - 02/15 Cefazolin 02/15 - present 69 yo M with HTN, anemia, BPH, recent posterior cervical decompression and fusion (02/02/25) who presented on 02/12/25 with fevers, night sweats, found to have MSSA bacteremia 2/ post-operative infection, s/p I&D (02/14/25). On presentation, T 37.4, HR 102. Labs with WBC 17.93. Pt was started on vanc, ceftriaxone. Admission blood cultures grew MSSA. Orthopedics was consulted, noted some swelling at the distal half of the neck incision, modest erythema around the wound edges. Pt was taken to the OR on 02/14 for I&D. Per operative note, significant amount of serous cloudy fluid was identified. OR culture grew MSSA. Pt reports neck pain. Denies other joint or spine pains. Has a history of L TKA but no pain there. Denies other hardware. TTE negative for vegetations (PV and TV not well visualized). 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 Admission and Anticipated Discharge Date Admission Date: February 12, 2025 Subjective This patient recommendation is based on a telemedicine consult request which was completed asynchronously through chart review and information provided by the primary physician. The patient was not seen or examined today. The evaluation is consultative in nature and all patient care and treatment decisions can either be accepted or rejected by the patient's primary hospital-based treating physician using their own independent medical judgment for their patient. Time Spent Reviewing Chart: 11 - 20 minutes Afebrile WBC downtrendded to 12.21 Results & Data Vital Signs (Past 12 Hours) Vital Signs Temp Pulse Resp BP Pulse Ox O2 Del Method 02/16/25 07:22 36.6 C 78 18 121/72 97 Room Air Laboratory Results Short CBC 02/16/25 Range/Units 06:30 WBC 12.21 H D (4.8-10.8) K/ul Hgb 9.8 L (14.0-18.0) g/dl Hct 29.9 L (42.0-52.0) % Plt Count 250 (130-400) K/uL BMP 02/16/25 06:30 Sodium 138 Potassium 3.4 L Chloride 104 Carbon Dioxide 30 BUN 16 Creatinine 0.83 Glucose 93 Calcium 9.1 Medications Administered Current Inpatient Medications Acetaminophen (Acetaminophen 500 Mg Tab) 1,000 mg PO Q8H PRN PRN Reason: Pain or Fever Stop: 03/14/25 22:31 Last Admin: 02/15/25 23:41 Dose: 1,000 mg Acetaminophen (Acetaminophen 500 Mg Tab) 1,000 mg PO Q8H PRN PRN Reason: MILD Pain Scale 1,2,3 & Pre PT Stop: 03/16/25 12:11 Al Hydrox/Mg Hydrox/Simethicone (Aluminum/Magnesium Susp 30 Ml Udc) 30 ml PO Q6H PRN PRN Reason: Dyspepsia Stop: 03/16/25 12:11 Albuterol (Albuterol Hfa 8 Gm Inhaler) 1 puffs INH QID PRN PRN Reason: shortness of breath or wheezing Stop: 03/14/25 22:36 Aspirin (Aspirin 81 Mg Ectab) 81 mg PO QPM [facility]ENE Stop: 03/15/25 20:59 Last Admin: 02/15/25 21:47 Dose: 81 mg Bisacodyl (Bisacodyl 10 Mg Supp) 10 mg TN DAILY PRN PRN Reason: Constipation Stop: 03/16/25 12:11 Diphenhydramine HCl (Diphenhydramine Capsule 25 Mg Cap) 25 mg PO Q6H PRN PRN Reason: Allergic Rhinitis/Insomnia Stop: 03/16/25 12:11 Docusate Sodium (Docusate Sodium 100 Mg Cap) 100 mg PO BID IRENE Stop: 03/15/25 10:14 Last Admin: 02/16/25 09:27 Dose: 100 mg Epinephrine (Racepinephrine 2.25% Nebu Soln 0.5 Ml Vial) 0.5 ml INH NOW PRN PRN Reason: If stridor present Famotidine (Famotidine 20 Mg Tab) 20 mg PO Q12H PRN PRN Reason: Dyspepsia Stop: 03/16/25 12:11 Finasteride (Finasteride 5 Mg Tab) 5 mg PO QAM [facility]ENE Stop: 03/15/25 08:59 Last Admin: 02/16/25 09:30 Dose: 5 mg Fluticasone Propionate (Fluticasone Propionate Na Spr 16 Gm Btl) 1 sprays NA BID PRN PRN Reason: allergy symptoms Stop: 03/14/25 22:36 Hydromorphone HCl (Hydromorphone Inj 0.5 Mg/0.5 Ml Syr) 0.5 mg IV Q3H PRN PRN Reason: MODERATE Pain (Scale 4,5,6) & Pre PT Stop: 02/28/25 12:11 Last Admin: 02/14/25 13:23 Dose: 0.5 mg Hydromorphone HCl (Hydromorphone Inj 1 Mg/Ml Syringe) 1 mg IV Q3H PRN PRN Reason: SEVERE Pain (Scale 7,8,9,10) Stop: 02/28/25 12:11 Last Admin: 02/16/25 09:28 Dose: 1 mg Hydromorphone HCl (Hydromorphone Hcl 2 Mg Tab) 2 mg PO Q4 PRN PRN Reason: Pain Stop: 02/28/25 12:11 Hydroxyzine HCl (Hydroxyzine Hcl 25 Mg Tab) 25 mg PO Q8H PRN PRN Reason: Anxiety Stop: 03/16/25 12:11 Dexamethasone 8 mg/ Syringe 2 mls @ 1 mls/min IV NOW PRN PRN Reason: If stridor present Promethazine HCl (Phenergan) 12.5 mg in 50.5 mls @ 202 mls/hr IV Q6H PRN PRN Reason: Nausea And Vomiting Stop: 03/16/25 12:11 Last Infusion: 02/14/25 19:12 Dose: Infused Cefazolin Sodium (Ancef 2000mg) 2,000 mg in 15 mls @ 3.75 mls/min IV Q8H [facility]ENE Stop: 03/01/25 13:59 Last Admin: 02/16/25 05:36 Dose: 3.75 mls/min Influenza Virus Vaccine Quadrival (Do Not Administer Flu Vaccine) 1 each N/A PRN PRN PRN Reason: Notification Stop: 03/16/25 12:11 Levothyroxine Sodium (Levothyroxine Sodium 75 Mcg Tablet) 75 mcg PO DAILYBB [facility] Stop: 03/15/25 06:29 Last Admin: 02/16/25 05:36 Dose: 75 mcg Lorazepam (Lorazepam 0.5 Mg Tab) 0.5 mg PO HS PRN PRN Reason: sleep Stop: 03/14/25 22:36 Last Admin: 02/14/25 23:25 Dose: 0.5 mg Lorazepam (Lorazepam 0.5 Mg Tab) 0.5 mg PO Q8H PRN PRN Reason: Sedation/Anxiety Stop: 03/16/25 12:11 Last Admin: 02/15/25 14:49 Dose: 0.5 mg Lorazepam (Lorazepam 2 Mg/1 Ml Vial) 0.5 mg IV Q8H PRN PRN Reason: Sedation/Anxiety Stop: 03/16/25 12:11 Losartan Potassium (Losartan Potassium 25 Mg Tab) [facility] [place] Stop: 03/15/25 08:59 Last Admin: 02/16/25 09:33 Dose: Not Given Magnesium Hydroxide (Magnesium Hydroxide Susp 30 Ml Udc) 30 ml PO Q24H PRN PRN Reason: Constipation Stop: 03/16/25 12:11 Metoclopramide HCl (Metoclopramide Hcl Inj 5 Mg/Ml 2 Ml Vial) 10 mg IV Q6H PRN PRN Reason: Nausea &/or Vomiting Stop: 03/16/25 12:11 Multivitamins (Multivitamin Tab) [facility] [place] Stop: 03/15/25 08:59 Last Admin: 02/16/25 07:18 Dose: Not Given Naloxone HCl (Naloxone Hcl 0.4 Mg/1 Ml Vial/Carp) 0.1 mg IV Q5M PRN PRN Reason: Oversedation/Resp depression Stop: 03/16/25 12:11 Ondansetron HCl (Ondansetron Inj 2 Mg/Ml 2 Ml Vial) 4 mg IV Q6H PRN PRN Reason: Nausea And Vomiting Stop: 03/16/25 01:10 Last Admin: 02/14/25 14:25 Dose: 4 mg Ondansetron HCl (Ondansetron Inj 2 Mg/Ml 2 Ml Vial) 4 mg IV Q6H PRN PRN Reason: Nausea &/or Vomiting Stop: 03/16/25 12:11 Ondansetron HCl (Ondansetron 4 Mg Od Tab) 4 mg PO Q6H PRN PRN Reason: Nausea Stop: 03/16/25 12:11 Pantoprazole Sodium (Pantoprazole 40 Mg Tab) 40 mg PO DAILY [facility] Stop: 03/15/25 08:59 Last Admin: 02/16/25 09:30 Dose: 40 mg Pneumococcal Polyvalent Vaccine (Do Not Administer Pneumococcal Vaccine) 1 each N/A PRN PRN PRN Reason: Notification Stop: 03/16/25 12:11 Polyethylene Glycol (Polyethylene (Miralax) 17 Gm Pack) 17 gm PO DAILY [facility] Stop: 03/15/25 10:14 Last Admin: 02/16/25 07:19 Dose: Not Given Polyethylene Glycol (Polyethylene (Miralax) 17 Gm Pack) 17 gm PO Q6 [facility] Stop: 03/17/25 05:59 Last Admin: 02/16/25 05:36 Dose: 17 gm Pregabalin (Pregabalin 50 Mg Cap) 50 mg PO BID [facility]ENE Stop: 03/14/25 22:44 Last Admin: 02/16/25 09:30 Dose: 50 mg Senna/Docusate Sodium (Docusate Sodium/Senna 50/8.6mg Tab) 2 tab PO HS IRENE Stop: 03/16/25 20:59 Last Admin: 02/15/25 21:47 Dose: 2 tab Sodium Biphosphate/Sodium Phosphate (Sod Phosphate/Sod Biphosphate Enema 132 Ml Btl) 132 ml TN ONE PRN PRN Reason: Constipation Stop: 03/16/25 12:11 Sumatriptan Succinate (Sumatriptan Succinate 100 Mg Tab) 100 mg PO BID PRN PRN Reason: migraine headache Stop: 03/14/25 22:36 Last Admin: 02/14/25 01:34 Dose: 100 mg Tramadol HCl (Tramadol Hcl 50 Mg Tablet) 50 - 100 mg PO Q4H PRN PRN Reason: Moderate-Severe pain & Pre PT Stop: 03/16/25 12:11 Vitamin D (Cholecalciferol 125 Mcg (5,000 Units) Tab) 125 mcg PO DAILY [facility] Stop: 03/15/25 08:59 Last Admin: 02/16/25 07:18 Dose: Not Given
--- NOTE | 2025-02-16 11:59 | Orthopedic Progress Note ---
Date of Service February 16, 2025 Assessment & Plan (1) Infection of cervical spine: Plan: This time we will continue LIBBY drains. Will await final blood cultures and ultimate PICC placement. ID for final antibiotic recommendations. Admission and Anticipated Discharge Date Admission Date: February 12, 2025 Subjective Patient struggling with intermittent cervicalgia but not limiting in nature. Arm symptoms markedly improved. He has been up and ambulating. Has not had a bowel movement as of yet. Physical Exam Physical Exam: On exam he is up and ambulating. His neurologic intact. Drains are in place and functional. Results & Data Vital Signs (Past 12 Hours) Vital Signs Temp Pulse Resp BP Pulse Ox O2 Del Method 02/16/25 07:22 36.6 C 78 18 121/72 97 Room Air
[2025-02-16] MEDS: HYDROmorphone HCL 2 MG TAB PO PRN (17:55)
[2025-02-16] MEDS: POTASSIUM CHLORIDE CRTAB 20 MEQ TABCR PO STA (18:21)
--- NOTE | 2025-02-16 23:00 | Hospitalist Progress Note ---
Date of Service February 16, 2025 Assessment & Plan (1) Fever postop: (2) Cervical spondylosis with radiculopathy: Plan 69 yo male PMHx GERD, osteoarthritis, hypothyroidism, HTN, hearing loss, anemia, BPH, POD-10 from posterior cervical decompression and fusion with fever. #Post-op fever secondary to infection of cervical spine S/P irrigation and debridement of the posterior cervical spine afebrile since 5/3 leukocytosis w/ left shift present, improved from prior labs culture now growing MSSA, transitioned to cefazolin. will need at least 6 weeks of IV antibiotics. awaiting repeat blood cultures to be clear before obtaining a PICC line. Ortho spine consulted appreciate input. #Chronic Conditions GERD - continue pantoprazole HTN - continue ARB BPH - continue finasteride Hypothyroidism - continue Synthroid Mental Health/Sleep - continue PRN Ativan FENGI: regular diet, s/p 1L NSS Code status: Full DVT prophylaxis: Low risk, ambulation Isolation: none Disposition: med/surg Admission and Anticipated Discharge Date Admission Date: February 12, 2025 Subjective 69 yo male reports no new symptoms. He reports feeling much better, He states that the tape for the IV lines that pull on his hair which causes pain. Informed nurse Physical Exam Constitutional: WD/WN, vitals as above Respiratory: normal respiratory effort, lungs clear to auscultation Cardiovascular: RRR, no murmur, no edema Results & Data Results & Data Vital Signs (Past 12 Hours) Vital Signs Temp Pulse Resp BP Pulse Ox O2 Del Method 02/16/25 20:21 36.9 C 71 18 133/76 99 Room Air 02/16/25 14:40 36.8 C 74 18 119/66 99 Room Air PG Care Time/CCT Total # of Minutes Spent Total Time Spent with Patient: Total time spent is greater than 50% in coordination of care (as documented) at patient's floor/unit and/or counseling patient: Coding Level of Care Code 41951 SUB INP/OBS CARE 3/50MIN Diagnoses Fever postop R50.82 Cervical spondylosis with radiculopathy M47.22
[2025-02-17 06:34] LABS: Hematocrit (blood only) 31.6 % (42.0-52.0); Hemoglobin 10.3 g/dl (14.0-18.0); Mean Corpuscular Hemoglobin 28.1 pg (25.0-34.0); Mean Corpuscular Hgb Conc 32.6 g/dL (32.0-36.0); Mean Corpuscular Volume 86.1 fL (80.0-100.0); Mean Platelet Volume 11.5 fL (9.4-12.4); Platelet Count 311 K/uL (130-400); RDW Coefficient of Variation 12.9 % (11.5-14.5); RDW Standard Deviation 40.6 fL (36.4-46.3); Red Blood Count 3.67 M/uL (4.70-6.10); White Blood Count 12.51 K/ul (4.8-10.8)
[2025-02-17 06:54] LABS: BUN Creatinine Ratio 13.4 (10-20); C Reactive Protein 7.8 mg/dl (0-0.5); Calcium 9.2 mg/dl (8.6-10.3); Creatinine Clr Calc Pharmacy 72.3 ml/min; Potassium 3.7 mmol/L (3.5-5.1)
--- NOTE | 2025-02-17 08:24 | Orthopedic Progress Note ---
Date of Service February 17, 2025 Assessment & Plan (1) Infection of cervical spine: Plan: At this time we will continue to await his final blood cultures. Hopefully the PICC line can be placed and he will be discharged home at the end the week. Admission and Anticipated Discharge Date Admission Date: February 12, 2025 Subjective Patient complaining of posterior cervicalgia. Arm symptoms have improved. Physical Exam Physical Exam: On exam is neurologically intact. Good strength testing. Drain is functioning Results & Data Vital Signs (Past 12 Hours) Vital Signs Temp Pulse Resp BP Pulse Ox O2 Del Method 02/17/25 08:09 36.8 C 69 18 148/80 H 97 Room Air
--- NOTE | 2025-02-17 09:38 | Infectious Disease Progress Nt ---
Date of Service February 17, 2025 Assessment & Plan (1) MSSA bacteremia: (2) Infection of cervical spine: Plan Problems: #Posterior cervical decompression and fusion (02/02/25) c/b post-operative MSSA infection: s/p I&D 02/14 #MSSA bacteremia Micro: 02/16 BCx x2: pending 02/14 BCx x2: NGTD 02/14 OR neck culture: MSSA (S tetra, TMP/SMX) 02/12 BCx x2: MSSA in 01/15 bottles Abx: Vanc 02/12 - 02/15 Ceftriaxone 02/12 - 02/15 Cefazolin 02/15 - present 69 yo M with HTN, anemia, BPH, recent posterior cervical decompression and fusion (02/02/25) who presented on 02/12/25 with fevers, night sweats, found to have MSSA bacteremia 2/ post-operative infection, s/p I&D (02/14/25). On presentation, T 37.4, HR 102. Labs with WBC 17.93. Pt was started on vanc, ceftriaxone. Admission blood cultures grew MSSA. Orthopedics was consulted, noted some swelling at the distal half of the neck incision, modest erythema around the wound edges. Pt was taken to the OR on 02/14 for I&D. Per operative note, significant amount of serous cloudy fluid was identified. OR culture grew MSSA. Pt reports neck pain. Denies other joint or spine pains. Has a history of L TKA but no pain there. Denies other hardware. TTE negative for vegetations (PV and TV not well visualized). Will hold off on pursuing SARMAD as blood cultures cleared quickly, and pt will receive a 6 week course of IV antibiotic regardless. Recommendations: - Ok for PICC line - Continue cefazolin 2 g IV q8h to complete a 6 week course (02/14 - 03/27/25) - Added rifampin 300 mg PO BID given retained hardware, which pt should take along with the cefazolin through 03/27/25 - After completion of 6 weeks of cefazolin + rifampin, can transition to cefadroxil 500 mg PO BID for suppression given retained hardware, which should be continued for minimum 1 year, but can be continued lifelong if pt is tolerating well - Check weekly CBC with diff, CMP while on cefazolin and rifampin to monitor for toxicity - Please arrange for follow-up with [facility] locally. Unfortunately [facility] only provides an inpatient consultation service and is unable to follow these patients for OPAT upon discharge. Will sign off. Admission and Anticipated Discharge Date Admission Date: February 12, 2025 Subjective Subsequent visit was provided via telemedicine using two-way real-time interactive telecommunication between the patient and the telemedicine provider. For the duration of the visit, the provider was performing the assessment from a different facility than the patient. This includesuse of bluetooth stethoscope forauscultationperformed by the telepresenter that the telemedicine provider can hear if described in the physical exam. Child Care Aide contact information: Please call [facility] . (Phone Number For Physician Use Only) After establishing a telemedicine visit, patient was: Patient was verified with two unique identifiers, Patient/authorized rep acknowledged consent and understanding and Gave permission to continue telehealth session Time Spent with Patient: Subsequent => 25 min No acute events Afebrile 5/4 blood cultures NGTD Review of System A complete ROS was performed and is negative except as mentioned in the HPI. Physical Exam Physical Exam: GEN: laying in bed in NAD. HEENT: neck brace in place RESP: No increased work of breathing NEURO: Alert and oriented. Answers all questions appropriately. Speech not slurred. PSYCH: Normal mood, affect appropriate. Results & Data Vital Signs (Past 12 Hours) Vital Signs Temp Pulse Resp BP Pulse Ox O2 Del Method 02/17/25 08:09 36.8 C 69 18 148/80 H 97 Room Air Laboratory Results Short CBC 02/17/25 Range/Units 06:07 WBC 12.51 H (4.8-10.8) K/ul Hgb 10.3 L (14.0-18.0) g/dl Hct 31.6 L (42.0-52.0) % Plt Count 311 (130-400) K/uL BMP 02/17/25 06:07 Sodium 140 Potassium 3.7 Chloride 101 Carbon Dioxide 34 H BUN 11 Creatinine 0.82 Glucose 94 Calcium 9.2 Medications Administered Current Inpatient Medications Acetaminophen (Acetaminophen 500 Mg Tab) 1,000 mg PO Q8H PRN PRN Reason: Pain or Fever Stop: 03/14/25 22:31 Last Admin: 02/17/25 08:47 Dose: 1,000 mg Acetaminophen (Acetaminophen 500 Mg Tab) 1,000 mg PO Q8H PRN PRN Reason: MILD Pain Scale 1,2,3 & Pre PT Stop: 03/16/25 12:11 Al Hydrox/Mg Hydrox/Simethicone (Aluminum/Magnesium Susp 30 Ml Udc) 30 ml PO Q6 H PRN PRN Reason: Dyspepsia Stop: 03/16/25 12:11 Albuterol (Albuterol Hfa 8 Gm Inhaler) 1 puffs INH QID PRN PRN Reason: shortness of breath or wheezing Stop: 03/14/25 22:36 Aspirin (Aspirin 81 Mg Ectab) 81 mg PO QPM [facility] Stop: 03/15/25 20:59 Last Admin: 02/16/25 20:30 Dose: 81 mg Bisacodyl (Bisacodyl 10 Mg Supp) 10 mg NC DAILY PRN PRN Reason: Constipation Stop: 03/16/25 12:11 Diphenhydramine HCl (Diphenhydramine Capsule 25 Mg Cap) 25 mg PO Q6H PRN PRN Reason: Allergic Rhinitis/Insomnia Stop: 03/16/25 12:11 Docusate Sodium (Docusate Sodium 100 Mg Cap) 100 mg PO BID [facility] Stop: 03/15/25 10:14 Last Admin: 02/17/25 08:40 Dose: Not Given Epinephrine (Racepinephrine 2.25% Nebu Soln 0.5 Ml Vial) 0.5 ml INH NOW PRN PRN Reason: If stridor present Famotidine (Famotidine 20 Mg Tab) 20 mg PO Q12H PRN PRN Reason: Dyspepsia Stop: 03/16/25 12:11 Finasteride (Finasteride 5 Mg Tab) 5 mg PO QAM [facility] Stop: 03/15/25 08:59 Last Admin: 02/17/25 08:40 Dose: 5 mg Fluticasone Propionate (Fluticasone Propionate Na Spr 16 Gm Btl) 1 sprays NA BID PRN PRN Reason: allergy symptoms Stop: 03/14/25 22:36 Hydromorphone HCl (Hydromorphone Inj 0.5 Mg/0.5 Ml Syr) 0.5 mg IV Q3H PRN PRN Reason: MODERATE Pain (Scale 4,5,6) & Pre PT Stop: 02/28/25 12:11 Last Admin: 02/14/25 13:23 Dose: 0.5 mg Hydromorphone HCl (Hydromorphone Inj 1 Mg/Ml Syringe) 1 mg IV Q3H PRN PRN Reason: SEVERE Pain (Scale 7,8,9,10) Stop: 02/28/25 12:11 Last Admin: 02/16/25 09:28 Dose: 1 mg Hydromorphone HCl (Hydromorphone Hcl 2 Mg Tab) 2 mg PO Q4 PRN PRN Reason: Pain Stop: 02/28/25 12:11 Last Admin: 02/17/25 03:21 Dose: 2 mg Hydroxyzine HCl (Hydroxyzine Hcl 25 Mg Tab) 25 mg PO Q8H PRN PRN Reason: Anxiety Stop: 03/16/25 12:11 Dexamethasone 8 mg/ Syringe 2 mls @ 1 mls/min IV NOW PRN PRN Reason: If stridor present Promethazine HCl (Phenergan) 12.5 mg in 50.5 mls @ 202 mls/hr IV Q6H PRN PRN Reason: Nausea And Vomiting Stop: 03/16/25 12:11 Last Infusion: 02/14/25 19:12 Dose: Infused Cefazolin Sodium (Ancef 2000mg) 2,000 mg in 15 mls @ 3.75 mls/min IV Q8H [facility] Stop: 03/01/25 13:59 Last Admin: 02/17/25 05:47 Dose: 3.75 mls/min Influenza Virus Vaccine Quadrival (Do Not Administer Flu Vaccine) 1 each N/A PRN PRN PRN Reason: Notification Stop: 03/16/25 12:11 Levothyroxine Sodium (Levothyroxine Sodium 75 Mcg Tablet) 75 mcg PO DAILYBB [facility] Stop: 03/15/25 06:29 Last Admin: 02/17/25 05:53 Dose: 75 mcg Lorazepam (Lorazepam 0.5 Mg Tab) 0.5 mg PO HS PRN PRN Reason: sleep Stop: 03/14/25 22:36 Last Admin: 02/14/25 23:25 Dose: 0.5 mg Lorazepam (Lorazepam 0.5 Mg Tab) 0.5 mg PO Q8H PRN PRN Reason: Sedation/Anxiety Stop: 03/16/25 12:11 Last Admin: 02/15/25 14:49 Dose: 0.5 mg Lorazepam (Lorazepam 2 Mg/1 Ml Vial) 0.5 mg IV Q8H PRN PRN Reason: Sedation/Anxiety Stop: 03/16/25 12:11 Losartan Potassium (Losartan Potassium 25 Mg Tab) 25 mg PO QAM [facility] Stop: 03/15/25 08:59 Last Admin: 02/17/25 08:40 Dose: 25 mg Magnesium Hydroxide (Magnesium Hydroxide Susp 30 Ml Udc) 30 ml PO Q24H PRN PRN Reason: Constipation Stop: 03/16/25 12:11 Metoclopramide HCl (Metoclopramide Hcl Inj 5 Mg/Ml 2 Ml Vial) 10 mg IV Q6H PRN PRN Reason: Nausea &/or Vomiting Stop: 03/16/25 12:11 Multivitamins (Multivitamin Tab) 1 tab PO QAM [facility] Stop: 03/15/25 08:59 Last Admin: 02/17/25 08:40 Dose: 1 tab Naloxone HCl (Naloxone Hcl 0.4 Mg/1 Ml Vial/Carp) 0.1 mg IV Q5M PRN PRN Reason: Oversedation/Resp depression Stop: 03/16/25 12:11 Ondansetron HCl (Ondansetron Inj 2 Mg/Ml 2 Ml Vial) 4 mg IV Q6H PRN PRN Reason: Nausea And Vomiting Stop: 03/16/25 01:10 Last Admin: 02/14/25 14:25 Dose: 4 mg Ondansetron HCl (Ondansetron Inj 2 Mg/Ml 2 Ml Vial) 4 mg IV Q6H PRN PRN Reason: Nausea &/or Vomiting Stop: 03/16/25 12:11 Ondansetron HCl (Ondansetron 4 Mg Od Tab) 4 mg PO Q6H PRN PRN Reason: Nausea Stop: 03/16/25 12:11 Pantoprazole Sodium (Pantoprazole 40 Mg Tab) 40 mg PO DAILY [facility] Stop: 03/15/25 08:59 Last Admin: 02/17/25 08:40 Dose: 40 mg Pneumococcal Polyvalent Vaccine (Do Not Administer Pneumococcal Vaccine) 1 each N/A PRN PRN PRN Reason: Notification Stop: 03/16/25 12:11 Polyethylene Glycol (Polyethylene (Miralax) 17 Gm Pack) 17 gm PO DAILY [facility] Stop: 03/15/25 10:14 Last Admin: 02/17/25 08:39 Dose: Not Given Polyethylene Glycol (Polyethylene (Miralax) 17 Gm Pack) 17 gm PO Q6 [facility] Stop: 03/17/25 05:59 Last Admin: 02/17/25 05:48 Dose: Not Given Pregabalin (Pregabalin 50 Mg Cap) 50 mg PO BID [facility] Stop: 03/14/25 22:44 Last Admin: 02/17/25 08:47 Dose: 50 mg Senna/Docusate Sodium (Docusate Sodium/Senna 50/8.6mg Tab) 2 tab PO HS [facility] Stop: 03/16/25 20:59 Last Admin: 02/16/25 20:32 Dose: 2 tab Sodium Biphosphate/Sodium Phosphate (Sod Phosphate/Sod Biphosphate Enema 132 Ml Btl) 132 ml NC ONE PRN PRN Reason: Constipation Stop: 03/16/25 12:11 Sumatriptan Succinate (Sumatriptan Succinate 100 Mg Tab) 100 mg PO BID PRN PRN Reason: migraine headache Stop: 03/14/25 22:36 Last Admin: 02/14/25 01:34 Dose: 100 mg Tramadol HCl (Tramadol Hcl 50 Mg Tablet) 50 - 100 mg PO Q4H PRN PRN Reason: Moderate-Severe pain & Pre PT Stop: 03/16/25 12:11 Vitamin D (Cholecalciferol 125 Mcg (5,000 Units) Tab) 125 mcg PO DAILY [facility] Stop: 03/15/25 08:59 Last Admin: 02/17/25 08:40 Dose: 125 mcg
[2025-02-17] MEDS: rifAMPin 300 MG CAPSULE PO SCH (12:47)
[2025-02-17] MEDS: HYDROmorphone HCL 2 MG TAB PO STA (21:41)
--- NOTE | 2025-02-17 22:45 | Hospitalist Progress Note ---
Date of Service February 17, 2025 Assessment & Plan (1) Fever postop: (2) Cervical spondylosis with radiculopathy: Plan 69 yo male PMHx GERD, osteoarthritis, hypothyroidism, HTN, hearing loss, anemia, BPH, POD-10 from posterior cervical decompression and fusion with fever. #Post-op fever secondary to infection of cervical spine S/P irrigation and debridement of the posterior cervical spine afebrile since 5/3 leukocytosis w/ left shift present, improved from prior labs culture now growing MSSA, transitioned to cefazolin. will need at least 6 weeks of IV antibiotics. obtained consent for PICC line, this is ordered, gave script to piano case maker. Ortho spine consulted appreciate input. discharge on Saturday #Chronic Conditions GERD - continue pantoprazole HTN - continue ARB BPH - continue finasteride Hypothyroidism - continue Synthroid Mental Health/Sleep - continue PRN Ativan FENGI: regular diet, s/p 1L NSS Code status: Full DVT prophylaxis: Low risk, ambulation Isolation: none Disposition: med/surg Admission and Anticipated Discharge Date Admission Date: February 12, 2025 Subjective Patient reports no new symptoms. Review of Systems Review of Systems: All systems reviewed & are unremarkable except as noted in HPI & below Physical Exam Constitutional: WD/WN, vitals as above Respiratory: normal respiratory effort Results & Data Results & Data Vital Signs (Past 12 Hours) Vital Signs Temp Pulse Resp BP Pulse Ox O2 Del Method 02/17/25 17:06 37.0 C 72 18 153/75 H 97 Room Air PG Care Time/CCT Total # of Minutes Spent Total Time Spent with Patient: Total time spent is greater than 50% in coordination of care (as documented) at patient's floor/unit and/or counseling patient: Coding Level of Care Code 22711 SUB INP/OBS CARE 3/50MIN Diagnoses Fever postop R50.82 Cervical spondylosis with radiculopathy M47.22
[2025-02-18 08:17] LABS: Hematocrit (blood only) 29.7 % (42.0-52.0); Hemoglobin 9.9 g/dl (14.0-18.0); Mean Corpuscular Hemoglobin 28.2 pg (25.0-34.0); Mean Corpuscular Hgb Conc 33.3 g/dL (32.0-36.0); Mean Corpuscular Volume 84.6 fL (80.0-100.0); Mean Platelet Volume 11.4 fL (9.4-12.4); Platelet Count 340 K/uL (130-400); RDW Coefficient of Variation 12.3 % (11.5-14.5); RDW Standard Deviation 37.2 fL (36.4-46.3); Red Blood Count 3.51 M/uL (4.70-6.10); White Blood Count 11.87 K/ul (4.8-10.8)
--- NOTE | 2025-02-18 08:23 | Orthopedic Progress Note ---
Date of Service February 18, 2025 Assessment & Plan (1) Infection of cervical spine: Plan: At this time needs to get the PICC line placed. Hopefully he will be set for discharge either today or tomorrow. Admission and Anticipated Discharge Date Admission Date: February 12, 2025 Subjective Patient complaining of some muscle spasms in his neck. Otherwise no other issues. No arm pain. Is ambulating well. Physical Exam Physical Exam: On exam is excellent neurologic function. Is up and ambulating. His LIBBY drain is functioning. s Results & Data Vital Signs (Past 12 Hours) Vital Signs Temp Pulse Resp BP Pulse Ox O2 Del Method 02/18/25 07:57 36.8 C 71 16 136/84 99 Room Air
[2025-02-18 08:42] LABS: BUN Creatinine Ratio 12.8 (10-20); C Reactive Protein 6.59 mg/dl (0-0.5); Calcium 9.2 mg/dl (8.6-10.3); Potassium 3.6 mmol/L (3.5-5.1)
[2025-02-18] MEDS: traMADol HCL 50 MG TABLET PO PRN (08:49)
--- NOTE | 2025-02-18 13:15 | Hospitalist Progress Note ---
"Date of Service February 18, 2025 Assessment & Plan (1) Fever postop: (2) Cervical spondylosis with radiculopathy: Plan 69 yo male PMHx GERD, osteoarthritis, hypothyroidism, HTN, hearing loss, anemia, BPH, POD-10 from posterior cervical decompression and fusion with fever. Found to be bactermic and infection at surgical site. #Post-op fever secondary to infection of cervical spine | MSSA Bactermia S/P irrigation and debridement of the posterior cervical spine with Dr. Reyes 02/14 afebrile since 02/13. Repeat BC negative at 48 hrs and 24hrs respectively leukocytosis improving, crp down trending ID consulted - Recommend 6 weeks of cefazolin and rifampin (through 03/27) then cefadroxil 500mg BID for suppression for at least a year, consider life long PICC line placed, Rx for outpatient abx/labs has been given to CM Plan for d/c Saturday after AM dose of abx. Will need local ID follow up GERD - continue pantoprazole HTN - continue ARB BPH - continue finasteride Hypothyroidism - continue Synthroid Mental Health/Sleep - continue PRN Ativan DVT prophylaxis: Low risk, ambulation Disposition: continued inpatient stay, plan for discharge tomorrow if no issues with LIBBY drain Admission and Anticipated Discharge Date Admission Date: February 12, 2025 Subjective Patient reports muscle spasms lastign 5-10 seconds otherwise doing well reports moving his bowels he is very worried about his drains - tells me that Dr. Reyes is aware and will be assesing tomorrow Review of Systems Review of Systems: All systems reviewed & are unremarkable except as noted in Subjective Physical Exam Physical Exam: General: NAD, vitals as above, sitting up in bed, neck brace not in place Pulm: breathing unlabored, clear to ascultation CV: well perfused, RRR abd: + BS, soft extremities: moves all extremities Results & Data Results & Data Vital Signs (Past 12 Hours) Vital Signs Temp Pulse Resp BP Pulse Ox O2 Del Method 02/18/25 07:57 98.2 F 71 16 136/84 99 Room Air Laboratory Results cbc and chemistry reviewed crp reviewed PG Care Time/CCT Total # of Minutes Spent Total Time Spent with Patient: Total time spent is greater than 50% in coordination of care (as documented) at patient's floor/unit and/or counseling patient: Coding Level of Care Code 34329 SUB INP/OBS CARE 235MIN Diagnoses Fever postop R50.82 Cervical spondylosis with radiculopathy M47.22"
[2025-02-18 19:41] VITALS: O2SAT 98
[2025-02-19 07:57] VITALS: BP 103/68; PULSE 73; RESP 15; TEMP 97.9
--- NOTE | 2025-02-19 09:44 | Discharge Summary ---
Discharge Summary Date of Service February 19, 2025 Principal Dx & Hospital Course #1 = Principal Diagnosis (1) Fever postop: (2) Cervical spondylosis with radiculopathy: Plan 69 yo male PMHx GERD, osteoarthritis, hypothyroidism, HTN, hearing loss, anemia, BPH, POD-10 from posterior cervical decompression and fusion with fever. Found to be bactermic and infection at surgical site. #Post-op fever secondary to infection of cervical spine | MSSA Bactermia S/P irrigation and debridement of the posterior cervical spine with Dr. Reyes 02/14 afebrile since 02/13. Repeat BC negative at 48 hrs and 24hrs respectively leukocytosis improving, crp down trending ID consulted - Recommend 6 weeks of cefazolin and rifampin (through 03/27) then cefadroxil 500mg BID for suppression for at least a year, consider life long PICC line placed, Rx for outpatient abx/labs has been given to CM Follow up with Dr. Reyes Saturday or Saturday Local ID follow up GERD - continue pantoprazole HTN - continue ARB BPH - continue finasteride Hypothyroidism - continue Synthroid Mental Health/Sleep - continue PRN Ativan Dispo: discharge to home today updated at bedside 02/[address] Reyes Notes For Next Care Provider Referall made to Dr. Orellana Medication Changes From Visit ancef through 03/27 Rifampin through 03/27 Admission HPI Per Admitting Provider 69 yo male PMHx GERD, osteoarthritis, hypothyroidism, HTN, hearing loss, anemia, BPH, POD-10 from posterior cervical decompression and fusion with fever. Denies sore throat, dysuria, abd pain, cough, CP, SOB, neck pain. No other complaints. Had episode of night sweats, soaking sheets. Measured fever to 101.2. ED course: 1L NSS 1 dose CTX Vanc consult placed Labs reveal: leukocytosis, improved from prior; mild hyponatremia. Otherwise, normal. Discharge Exam awake and alert ambulating around the room breathing unlabored well perfused moves all extremities Discharge Plan Discharge Items Patient Disposition: Home - Home Health Services Reason For Visit: FEVER Discharge Diagnosis: Cervical epidural abscess Condition on Discharge: Fair Activity: As commented below Non-emergency contact: Primary Care Provider Call non-emergency contact if: you have any medication questions Follow-up/Referrals: Ian Reyes DO [Surgeon] - (follow up as directed ) Conrado Connell MD [Primary Care Provider] - 02/26/25 11:30 am (follow up in one week ) Mg Orellana DO [Physician] - (infectious disease follow up THE OFFICE WILL CALL YOU NEXT WEEK FOR A HOSPITAL FOLLOW UP VISIT.) Diet: Regular Addtl Attending Provider Instructions: Mr. Benavides, David were hospitalized after worsening pain and fever after recent neck surgery. This was found to be from a cervical epidural abscess. This was drained in the OR with Dr. Reyes on 02/14. You have done well since. You were seen by infectious disease who recommended 6 weeks of IV antibiotics followed by oral suppression (with Cefadroxil 500mg BID) for at least a year, if not longer. You have been referred to a local ID doctor for follow up. DR. Orellana - their office should be giving you a call next week. Continue Cefazolin IV 3 times a day until 03/27 Also continue on Rifampin orally twice a day until 03/27 Please continue stool softeners while you are taking narcotic pain medication to prevent constipation. Follow up with your PCP in one week. Follow up with Dr. Reyes as instructed. CONTACT YOUR PRIMARY CARE PROVIDER if you experience any of the following: Shortness of breath or difficulty breathing Fevers or chills Feeling tired with normal activity or experiencing dizziness or fainting Difficulty following your treatment plan, or difficulty taking medications CALL 911 OR GO TO THE EMERGENCY DEPARTMENT if you experience any of the following: Severe abdominal pain or nausea/vomiting Severe chest pain, or chest pain that radiates (moves) to your jaw or arm Sudden, severe shortness of breath or difficulty breathing Thank you for allowing us to participate in your care. Add Rn Clinical Trials Provider Instructions: Dr. Reyes's Instructions: ACTIVITY RECOMMENDATIONS: SELF CARE INSTRUCTIONS AFTER CERVICAL FUSIONS 1. No smoking. Smoking drastically decreases the chance of a solid fusion. 2. No bending, lifting more than 5 pounds, or twisting (roll like a log when turning in bed). 3. You may shower 3 days after surgery. Thoroughly dry wound. Do not soak in the tub. 4. Cervical collar: Must be worn at all times including sleeping. You may remove the brace only to bath, eat and if you are sitting in a recliner. 5. Please walk as much as you can for exercise. Gradually increase the distance that you walk as your endurance increases. 6. You may return to previous diet. SPECIAL CARE INSTRUCTIONS: VERY IMPORTANT TO READ AND REVIEW A. Do not take any anti-inflammatory medications (i.e. Indocin, Advil, Aspirin, Naprosyn, Aleve, Motrin, etc.) as these may inhibit the chance of a solid fusion. Tylenol is okay to take. B. Your surgical incision has been closed with a cosmetic suture under the skin that will dissolve in about 6 weeks. In 14 days, you can use a pair of clean scissors and cut the suture that is left outside of the skin at the ends of your incision. C. Complications are uncommon, but please contact us if you have any signs or symptoms of: 1. wound infection (fever higher than 102.5 degrees F, redness, separation of wound, drainage, or increasing pain from the incision) 2. blood clots in legs (pain, swelling, redness and warmth in legs) 3. urinary tract infection (fever higher than 102.5 degrees, burning upon urination or increased frequency of urination) 4. nerve problems (inability to walk on your toes or heels, numbness, loss of bowel or bladder control) 5. any other symptoms that concern you. D. Please call the office at if you have any concerns or questions about your operation or recovery. MANAGING PAIN AFTER SPINAL SURGERY 1. Narcotic medication is intended for short-term use and will be provided for surgical pain. Surgical pain usually lasts for a period of 4-6 weeks. Narcotic medication includes Percocet, Vicodin, Darvocet, Tylenol #3 or Lortab. 2. Longer-term pain is more appropriately treated with non-narcotic medication such as Tylenol ES. 3. Muscle spasm is not appropriately treated with narcotics. Muscle relaxers such as Soma, Flexeril or Skelaxin can be used along with Tylenol ES. 4. Remember that we all live with some "aches and pains". This is not unusual or uncommon after an injury or as we get older. 5. We will provide appropriate medication within the normal guidelines of their prescribed use. We will also be very cautious and aware of potential abuse and extended duration of patients' medication needs. 6. Please allow 2-3 days to process refills. Prescriptions will not be mailed but must be picked up at the office. FOLLOW UP VISIT: Keep your scheduled follow-up appointment. Any questions, please call the office at . Pending Studies at Discharge: No Stand-Alone Forms: My [facility], Smoking Cessation Medications and DC Order Prescriptions: New tramadol 50 mg tablet 50 mg PO Q6H PRN (Reason: pain, moderate) Qty: 30 0RF rifampin 300 mg Capsule 300 mg PO BID 36 Days Qty: 72 0RF sennosides-docusate sodium [Senokot-S] 8.6-50 mg Tablet 2 tab PO HS 30 Days Qty: 60 0RF cefazolin 2 gram recon soln 2 g IV Q8H 35 Days Rx Instructions: last day 03/27 acetaminophen [Tylenol Extra Strength] 500 mg Tablet 1,000 mg PO Q8H PRN (Reason: fever or pain) Qty: 10 0RF Continued albuterol sulfate 90 mcg/actuation HFA aerosol inhaler 1 inh inhalation QID PRN (Reason: shortness of breath or wheezing) Qty: 8.5 3RF finasteride [Proscar] 5 mg tablet 5 mg PO QAM Qty: 90 3RF pregabalin [Lyrica] 50 mg capsule 50 mg PO BID Qty: 90 5RF lorazepam 0.5 mg tablet 0.5 mg PO HS PRN (Reason: sleep) Qty: 30 5RF levothyroxine [Synthroid] 75 mcg tablet 75 mcg PO QAM Qty: 90 3RF cholecalciferol (vitamin D3) 125 mcg (5,000 unit) capsule 125 mcg PO DAILY Qty: 30 0RF Rx Instructions: Dr. Reyes told pt to start OTC. 02/08/25. fluticasone propionate [Flonase Allergy Relief] 50 mcg/actuation spray ,suspension 1 spray intranasal BID PRN (Reason: allergy symptoms) 30 Days Qty: 15.8 8RF Qvar RediHaler 40 mcg/actuation HFA aerosol breath activated 1 inh INHALATION Q12H PRN (Reason: Shortness Of Breath Or Wheezing) Qty: 1 5RF albuterol sulfate 2.5 mg /3 mL (0.083 %) solution for nebulization 2.5 mg inhalation Q6H PRN (Reason: SOB) aspirin [Adult Low Dose Aspirin] 81 mg tablet,delayed release (DR/EC) 81 mg PO QPM telmisartan [Micardis] 20 mg tablet 10 mg PO QAM methylprednisolone 4 mg tablets,dose pack 0 mg PO DAILY Rx Instructions: STARTED 02/08/25 FOR 6 DAYS. ENDS WITH LAST DOSE 02/13/25 oxycodone 5 mg tablet 5 mg PO Q6H PRN (Reason: Pain) sumatriptan succinate 100 mg tablet 100 mg PO BID PRN (Reason: migraine headache) Rx Instructions: do not exceed 2 doses per 24 hrs multivitamin Tablet 1 tab PO QAM pantoprazole 40 mg tablet,delayed release (DR/EC) 40 mg PO DAILY Discharge Orders: Discharge Order (Routine); Ordered 02/19/25 Ordered By: Marion Gaston Admission Data Admit Date/Time: 02/12/25 21:29 Attending Provider: Baltazar [place] Admit Provider: Baltazar Fontenot Primary Care Provider: Conrado Connell Other Providers: Ian Reyes; Fred Gonzales; [facility]; Constance Delgado; Deidre Vergara; Selena Cifuentes; Yesy Fitzpatrick; Candy Gibbs; Monica Prince Hospital Stay Data Consultations 02/12/25 19:31 ED Decision to Admit Stat 02/12/25 19:36 Consult Orthopedic Spine Surgery Routine 02/12/25 20:08 Consult Orthopedic Spine Surgery Routine 02/14/25 14:14 Consult Infectious Diseases Routine Procedures Performed Operation Date: 02/14/25 10:00 Actual Procedures p Irrigation and Debridement Cervical Spine(Not Applicable) - Ian Reyes DO Diagnostic Imagining Performed Chest X-Ray 02/12/25 17:23 Clinical History: Weakness Technique: A frontal view of the chest was obtained Comparison is made to the prior examination dated 02/03/2025 Findings: There are no confluent pulmonary infiltrates. The heart size is within normal limits. No pleural effusion or pneumothorax is seen. There is no definite pulmonary nodule. No fracture is noted. There is an unchanged fusion of the cervical and upper thoracic spine Impression: No active disease Electronically signed by Yair Rincon 02-12-2025 6:20 PM Pending Results Patient Have Any Pending Studies at Discharge: No Discharge Instructions Given to Patient (Per Discharging Provider) David Lemus were hospitalized after worsening pain and fever after recent neck surgery. This was found to be from a cervical epidural abscess. This was drained in the OR with Dr. Reyes on 02/14. You have done well since. You were seen by infectious disease who recommended 6 weeks of IV antibiotics followed by oral suppression (with Cefadroxil 500mg BID) for at least a year, if not longer. You have been referred to a local ID doctor for follow up. DR. Orellana - their office should be giving you a call next week. Continue Cefazolin IV 3 times a day until 03/27 Also continue on Rifampin orally twice a day until 03/27 Please continue stool softeners while you are taking narcotic pain medication to prevent constipation. Follow up with your PCP in one week. Follow up with Dr. Reyes as instructed. CONTACT YOUR PRIMARY CARE PROVIDER if you experience any of the following: Shortness of breath or difficulty breathing Fevers or chills Feeling tired with normal activity or experiencing dizziness or fainting Difficulty following your treatment plan, or difficulty taking medications CALL 911 OR GO TO THE EMERGENCY DEPARTMENT if you experience any of the fo llowing: Severe abdominal pain or nausea/vomiting Severe chest pain, or chest pain that radiates (moves) to your jaw or arm Sudden, severe shortness of breath or difficulty breathing Thank you for allowing us to participate in your care. Total Time Total Time Spent Total Time Spent (In Minutes): Time spent day of discharge 35 minutes including direct patient care, medication reconciliation, documentation, review of labs and images, and coordination of care. Coding Level of Care Code 59683 INP/OBS DISCH >30 MIN Diagnoses Fever postop R50.82 Cervical spondylosis with radiculopathy M47.22
--- NOTE | 2025-02-19 09:48 | Orthopedic Progress Note ---
Date of Service February 19, 2025 Assessment & Plan (1) Infection of cervical spine: Plan: Patient will DC home today with home health and antibiotics. Will maintain the LIBBY drain now and follow-up early next week for removal. Admission and Anticipated Discharge Date Admission Date: February 12, 2025 Subjective Neck pain is controlled but he calender wind up tender. Arm symptoms are markedly improved. Physical Exam Physical Exam: On exam he is up and ambulating. Inspection strength testing to the upper extremities. Drain is functioning. Results & Data Vital Signs (Past 12 Hours) Vital Signs Temp Pulse Resp BP Pulse Ox O2 Del Method 02/19/25 07:53 36.6 C 73 15 103/68 98 Room Air
== END 2025-02-19 11:35 | disposition home health service (06) | DRG 856 ==
LOC: ED 17:10 → SUATTDRO 21:29 → 3N 21:29